=== PATIENT | female | born 1950 | race Caucasian/White ===

== ENCOUNTER → 2017-03-22 | Outpatient (CLI) | payer OTHER, MEDICARE ==
[~2017-03-22] MED LIST: ACET-1138 PO; ASPEC81 PO; CARV12.52 PO; CHOL2000 PO; CLB200 PO; HYDR25TA4 PO; LEVO150T9 PO; OXYSR10 PO; RQP/5 PO; RXC5 PO
--- NOTE | 2017-03-22 13:51 | DIAGNOSTIC IMAGING REPORT ---
MRI LUMBAR SPINE W/O CONTRAST CLINICAL HISTORY: Low back pain with bilateral leg radiculopathy. TECHNIQUE: Sagittal and axial T1, T2 and STIR images were obtained. Imaging was performed in 0.7 Joi open MRI scanner. COMPARISON STUDY: CT scan dated 08/02/2013 OBSERVATIONS: The vertebral bodies and posterior elements appear intact. There is no abnormal bony signal present to suggest a marrow replacement process. L1-2: There is a minor circumferential disc bulge. There is no significant spinal or foraminal stenosis L2-3: There is a mild circumferential disc bulge. There is no significant spinal or foraminal stenosis L3-4: There is a mild circumferential disc bulge. There is mild facet joint hypertrophy. There is minimal spinal canal narrowing. There is no significant foraminal narrowing L4-5: There is a circumferential disc bulge present. There is mild facet joint ligamentous hypertrophy. There is mild to moderate spinal stenosis. L5-S1: There is disc degeneration. No focal herniations are visualized. There is no significant spinal or foraminal stenosis. The conus medullaris and cauda equina appear normal. 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 IMPRESSION: Multilevel degenerative change. Minimal spinal stenosis the L3-4 level. Mild to moderate spinal stenosis at the L4-5 level. Electronically signed by: Torres Perez M.D. 03/22/2017 1:49 PM Dictated Date/Time: 03/22/2017 1:44 PM
== END | disposition home or self-care (01) ==
LOC: C.OPENMRI 12:32
PROVIDERS: ATTEND Internal Medicine
DX: M51.36 Other intervertebral disc degeneration, lumbar region (principal); M48.06 Spinal stenosis, lumbar region

== ENCOUNTER → 2017-05-08 | Outpatient (CLI) | payer OTHER, MEDICARE ==
--- NOTE | 2017-05-08 15:42 | MAMMOGRAPHY REPORT ---
BILATERAL DIGITAL SCREENING MAMMOGRAM WITH CAD: 05/08/2017 CLINICAL HISTORY: Routine screening. TECHNIQUE: Bilateral CC and MLO views were obtained. Current study was also evaluated with a Compute r Aided Detection (CAD) system. COMPARISON: Comparison is made to exams dated: 05/05/2016 mammogram, 01/26/2015 mammogram, 10/17/2012 ma mmogram, 10/17/2011 mammogram, 10/14/2010 mammogram, and 10/12/2009 mammogram - [facility] BREAST COMPOSITION: There are scattered areas of fibroglandular density in both breasts. FINDINGS: The parenchymal pattern is unchanged. No developing mass, architectural distortion or clus ter of suspicious microcalcifications is seen in either breast. IMPRESSION: ACR BI-RADS CATEGORY 2: BENIGN There is no mammographic evidence of malignancy. A 1 year screening mammogram is recommended. The pa tient will receive written notification of the results. Approximately 10% of breast cancers are not detected with mammography. A negative mammographic report should not delay biopsy if a clinically suggestive mass is present. Vilma Mann M.D. ay/:05/08/2017 14:25:00 Hosiery Mater: Radha Woodard RT(R)(M), [facility] letter sent: Normal 1/2 BI-RADS Code: ACR BI-RADS Category 2: Benign
== END | disposition home or self-care (01) ==
LOC: C.MAMM 13:43
PROVIDERS: ATTEND Obstetrics & Gynecology
DX: Z12.31 Encounter for screening mammogram for malignant neoplasm of breast (principal)

== ENCOUNTER → 2017-07-19 | Outpatient (CLI) | payer OTHER, MEDICARE ==
[2017-07-19 13:15] LABS: BASO % 0.6 %; BASO ABS # 0.03 K/uL (0-0.2); COMPLETE YES; EOS % 2.9 %; HEMATOCRIT 39.7 % (37-47); IG% 0.4 %; LYMPH % 30.3 %; LYMPH ABS # 1.59 K/uL (1.2-3.4); MEAN CORPUSCULAR HEMOGLOBIN 28.8 pg (25-34); MEAN CORPUSCULAR HGB CONC 32.7 g/dl (32-36); MEAN PLATELET VOLUME 9.4 fL (7.4-10.4); MONO % 12.4 %; NEUT % 53.4 %; PLATELET COUNT 262 K/uL (130-400); RED BLOOD COUNT 4.51 M/uL (4.2-5.4); WHITE BLOOD COUNT 5.24 K/uL (4.8-10.8)
[2017-07-19 13:49] LABS: ALT/SGPT 21 U/L (12-78); BLOOD UREA NITROGEN 21 mg/dl (7-18); BUN/CREATININE RATIO 29.2 (10-20); CALCIUM 9.4 mg/dl (8.5-10.1); CARBON DIOXIDE 27 mmol/L (21-32); CHLORIDE 107 mmol/L (98-107); CREATININE 0.71 mg/dl (0.60-1.20); GLUCOSE 106 mg/dl (70-99); POTASSIUM 4.2 mmol/L (3.5-5.1); SODIUM 139 mmol/L (136-145)
[2017-07-19 13:58] LABS: ALKALINE PHOSPHATASE 84 U/L (45-117); AST/SGOT 15 U/L (15-37); TOTAL IRON BINDING CAPACITY 349 mcg/dl (250-450)
[2017-07-19 14:14] LABS: ESTIMATED AVERAGE GLUCOSE 128 mg/dl; HA1C FLAG Normal (Normal)
[2017-07-19 14:19] LABS: LYME DISEASE AB IGG NEG (NEG); LYME DISEASE AB IGM NEG (NEG)
[2017-07-20 01:38] LABS: RAPID PLASMA REAGIN NONREACTIVE (NONREACT)
== END | disposition home or self-care (01) ==
LOC: C.LABBC 09:39
PROVIDERS: ATTEND Psychiatry & Neurology Neurology
DX: G25.81 Restless legs syndrome (principal); M54.9 Dorsalgia, unspecified; G60.9 Hereditary and idiopathic neuropathy, unspecified

== ENCOUNTER → 2017-10-17 | Outpatient (CLI) | payer OTHER, MEDICARE ==
--- NOTE | 2017-10-17 16:41 | DIAGNOSTIC IMAGING REPORT ---
ULTRASOUND LEFT LOWER EXTREMITY VENOUS CLINICAL HISTORY: Left leg swelling and erythema. COMPARISON STUDY: Left lower extremity venous ultrasound dated 04/30/2012. TECHNIQUE: Real-time, grayscale, and color Doppler sonography of the deep veins of the left lower extremity was performed from the inguinal crease to the calf. Compression and augmentation were utilized. FINDINGS: There is no sonographic evidence of deep venous thrombosis identified in the left lower extremity. The common femoral, superficial femoral, and popliteal veins are patent and normally compressible. The greater saphenous vein and the profunda femoris vein at the junction with the common femoral vein are clear. The visualized calf veins are patent. A complex popliteal cyst measures 6.2 x 2.0 x 3.5 cm. IMPRESSION: 1. There is no sonographic evidence of deep venous thrombosis identified in the left lower extremity. 2. Popliteal cyst. Electronically signed by: Trino Vick M.D. 10/17/2017 4:40 PM Dictated Date/Time: 10/17/2017 4:40 PM
== END | disposition home or self-care (01) ==
LOC: C.ULTR 15:52
PROVIDERS: ATTEND Nurse Practitioner
DX: M79.662 Pain in left lower leg (principal); M79.89 Other specified soft tissue disorders

== ENCOUNTER → 2018-02-02 | Outpatient (CLI) | payer OTHER, MEDICARE ==
[~2018-02-02] MED LIST changes: -ASPEC81 PO; +ASPI-320 PO
== END | disposition home or self-care (01) ==
LOC: C.PAPS 14:27
PROVIDERS: ATTEND Obstetrics & Gynecology
DX: Z12.4 Encounter for screening for malignant neoplasm of cervix (principal)

== ENCOUNTER → 2018-05-14 | Outpatient (CLI) | payer OTHER, MEDICARE ==
--- NOTE | 2018-05-15 14:44 | MAMMOGRAPHY REPORT ---
BILATERAL DIGITAL SCREENING MAMMOGRAM TOMOSYNTHESIS WITH CAD: 05/14/2018 CLINICAL HISTORY: Routine screening. Patient has no complaints. TECHNIQUE: The study was acquired using full field digital technology and interpreted from soft copy. Breast tomosynthesis in addition to standard 2D mammography was performed. Current study was also ev aluated with a Computer Aided Detection (CAD) system. COMPARISON: Comparison is made to exams dated: 05/08/2017 mammogram, 05/05/2016 mammogram, 01/26/2015 m ammogram, 10/17/2012 mammogram, 10/17/2011 mammogram, and 10/14/2010 mammogram - [facility]. BREAST COMPOSITION: There are scattered areas of fibroglandular density in both breasts. FINDINGS: The parenchymal pattern is unchanged. No developing mass, architectural distortion or cluster of susp icious microcalcifications is seen in either breast. IMPRESSION: ACR BI-RADS CATEGORY 2: BENIGN There is no mammographic evidence of malignancy. A 1 year screening mammogram is recommended.( 019) The patient will receive written notification of the results. Some breast cancers are not detected with mammography. A negative mammographic report should not aug[place] y biopsy if a clinically suggestive mass is present. Vilma Mann M.D. ay/:05/14/2018 17:16:21 Director Of Outside Sales: RT Gabriela(Shruti)(M), [facility] letter sent: Normal 1/2 BI-RADS Code: ACR BI-RADS Category 2: Benign
== END | disposition home or self-care (01) ==
LOC: C.MAMM 11:16
PROVIDERS: ATTEND Internal Medicine
DX: Z12.31 Encounter for screening mammogram for malignant neoplasm of breast (principal)

== ENCOUNTER 2023-11-23 19:46 | Observation (INO) ==
[2023-11-23] MEDS: ONDANSETRON INJ 2 MG/ML 2 ML VIAL IV STA ×2 (20:55→22:53)
[2023-11-23 21:15] LABS: Basophils # (auto) 0.04 K/uL (0.00-0.20); Basophils % (auto) 0.4 %; Eosinophils # (auto) 0.09 K/uL (0.00-0.50); Eosinophils % (auto) 0.9 %; Hematocrit (blood only) 44.5 % (37.0-47.0); Hemoglobin 14.6 g/dl (12.0-16.0); Immature Granulocytes # (auto) 0.04 K/uL (0.01-0.20); Immature Granulocytes % (auto) 0.4 %; Lymphocytes # (auto) 1.46 K/uL (1.20-3.40); Lymphocytes % (auto) 13.8 %; Mean Corpuscular Hemoglobin 28.9 pg (25.0-34.0); Mean Corpuscular Hgb Conc 32.8 g/dL (32.0-36.0); Mean Corpuscular Volume 88.1 fL (80.0-100.0); Mean Platelet Volume 9.6 fL (9.4-12.4); Monocytes # (auto) 1.04 K/uL (0.11-0.59); Monocytes % (auto) 9.8 %; Neutrophils # (auto) 7.89 K/uL (1.40-6.50); Neutrophils % (auto) 74.7 %; Platelet Count 307 K/uL (130-400); RDW Coefficient of Variation 13.2 % (11.5-14.5); RDW Standard Deviation 42.2 fL (36.4-46.3); Red Blood Count 5.05 M/uL (4.20-5.40); White Blood Count 10.56 K/ul (4.8-10.8)
[2023-11-23 21:28] LABS: Albumin Globulin Ratio 1.3 (0.9-2); Albumin Level 4.7 gm/dl (3.4-5.0); BUN Creatinine Ratio 25.6 (10-20); Bilirubin,Total 0.6 mg/dl (0.2-1.0); Calcium 10.4 mg/dl (8.6-10.3); Est GFR (African American) 81.1 ml/min; Globulin 3.5 gm/dl (2.5-4.0); Potassium 3.9 mmol/L (3.5-5.1); Total Protein 8.2 gm/dl (6.0-8.3)
--- NOTE | 2023-11-23 21:41 | XRay Report ---
KUB CLINICAL HISTORY: Generalized abdominal pain. FINDINGS: 2 AP, portable, supine abdominal radiographs are correlated with abdominal CT dated 023. There are distended and gas-filled loops of small bowel which measure up to 4.5 cm diameter. Fin dings suggest obstruction. Fecal retention is noted in the right colon. No evidence of intraperitonea l free air is seen on these supine images. There are no abnormal abdominal calcifications. The skelet al structures are osteopenic and appear intact. There is moderate lumbosacral spondylosis. IMPRESSION: Distended and gas-filled loops of small bowel suggest obstruction. Correlate clinically. Electronically signed by: Trino Vick M.D. 11/23/2023 9:38 PM
[2023-11-23 22:40] LABS: Troponin I High Sensitivity 4.5 pg/ml (0-14)
[2023-11-23] MEDS: OPTIRAY 320 500ml IV ONE (22:47)
[2023-11-23] MEDS: FAMOTIDINE 20MG IV PUSH 20 MG/5 ML SYR IV STA (22:53)
[2023-11-23] MEDS: ACETAMINOPHEN 1,000 MG/100 ML VIAL IV STA (22:53)
[2023-11-23] MEDS: SODIUM CHLORIDE 0.9% 500 ML IV ONE (23:02)
--- NOTE | 2023-11-23 23:11 | CT Scan Report ---
Exam(s): CT ABDOMEN + PELVIS With Contrast IV Amt: 88 ML OPTIRAY 320 EXAM: CT Abdomen and Pelvis With Intravenous Contrast CLINICAL HISTORY: Reason for exam: severe abd pain. TECHNIQUE: Axial computed tomography images of the abdomen and pelvis with intravenous contrast. CTDI is 28.14 mGy and DLP is 1408.89 mGy-cm. Automated exposure control was utilized for the study. A dose lowering technique was utilized adhering to the principles of ALARA. CONTRAST: Patient received 88 ML OPTIRAY 320 of IV contrast COMPARISON: No relevant prior studies available. FINDINGS: Lung bases: Unremarkable. No mass. No consolidation. Mediastinum: Moderate size esophageal hiatal hernia. ABDOMEN: Liver: Unremarkable. No mass. Gallbladder and bile ducts: Unremarkable. No calcified stones. No ductal dilation. Pancreas: Unremarkable. No mass. No ductal dilation. Spleen: Unremarkable. No splenomegaly. Adrenals: Unremarkable. No mass. Kidneys and ureters: Unremarkable. No solid mass. No hydronephrosis. Stomach and bowel: Low-grade small bowel obstruction centered on a infraumbilical anterior abdominal wall hernia. No mucosal thickening. PELVIS: Appendix: No findings to suggest acute appendicitis. Bladder: Unremarkable. No mass. Reproductive: Unremarkable as visualized. ABDOMEN and PELVIS: Intraperitoneal space: Unremarkable. No free air. No significant fluid collection. Bones/joints: No acute fracture. No dislocation. Soft tissues: See above. Vasculature: Unremarkable. No abdominal aortic aneurysm. Lymph nodes: Unremarkable. No enlarged lymph nodes. IMPRESSION: Low-grade small bowel obstruction centered on infraumbilical anterior abdominal wall hernia Electronically signed by: Fabiano Haas MD 11/23/23 23:10 PM
--- NOTE | 2023-11-23 23:19 | Emergency Department Note ---
History of Present Illness General Chief complaint: Abdominal Pain Stated complaint: NAUSEA, ABDOMINAL PAIN, HEADACHE, COLD SWEATS Time Seen by Provider: 11/23/23 21:48 History of Present Illness Maximum Pain Intensity: 8 This 73-year-old female presents ER complaining of abdominal pain today shortly after eating a frosty from [employer]. No prior abdominal surgeries. Patient states her is currently home and was just getting treated for C. difficile. Patient denies diarrhea, fever, chills, chest pain, dyspnea, flulike illness. Home Medications Medication Instructions Recorded Confirmed Type carvedilol 6.25 mg tablet 12.5 mg PO BID 04/17/20 10/27/23 History oxycodone-acetaminophen 5 mg-325 1 tab PO Q8H PRN Pain 02/01/21 10/27/23 History mg tablet (Percocet) anastrozole 1 mg tablet 1 mg PO QAM 10/25/22 10/27/23 History cyanocobalamin (vitamin B-12) 1,000 mcg PO QAM 10/25/22 10/27/23 History 1,000 mcg tablet (Vitamin B-12) fluticasone propionate 50 2 spray intranasal HS PRN 10/25/22 10/27/23 History mcg/actuation nasal Congestion spray,suspension levothyroxine 175 mcg tablet 175 mcg PO QAM 10/25/22 10/27/23 History omeprazole 20 mg capsule,delayed See Rx Instructions .Route 06/27/23 10/27/23 Rx release .COMPLEX #90 caps pramipexole 0.25 mg tablet 0.25 mg PO .COMPLEX 90 days #270 07/17/23 10/27/23 Rx tabs gabapentin 100 mg capsule 100 mg PO DAILY 08/04/23 10/27/23 History torsemide 5 mg tablet 5 mg PO BID 08/04/23 10/27/23 History Allergies Allergy/AdvReac Type Severity Reaction Status Date / Time lisinopril Allergy Severe THROAT Verified 10/27/23 09:04 SWELLING/SOB sulfamethoxazole Allergy Mild Rash Verified 10/27/23 09:04 [From Bactrim] trimethoprim [From Bactrim] Allergy Mild Rash Verified 10/27/23 09:04 latex Allergy Unknown Rash Verified 10/27/23 09:04 Penicillins Allergy Unknown SHORTNESS Verified 10/27/23 09:04 OF BREATH empagliflozin AdvReac Intermediate Abdominal Verified 10/27/23 09:04 [From Jardiance] Pain Past Med/Surg History Medical History History of anesthesia problem "hard time coming out of it, don't remember ride home from the hospital" Sleep apnea CPAP; "hasn't used in 2 weeks due to tingling in her cheek from her mask/magnet, waiting for special pads to arrive" History of COVID-19 11/2021, home test, not hosp; "bad" congestion, chills, fatigue>"still feels tired all the time and not as strong physically" History of Mohs micrographic surgery for skin cancer BCC forehead CHF (congestive heart failure) f/u dr. hamilton, [facility] Basal cell carcinoma of face Forehead Gastroesophageal reflux disease Hiatal hernia Breast cancer, right Biopsy on 07/06/21; XRT and sx Numbness and tingling in both hands "just a little on the left side remains" DDD (degenerative disc disease) Idiopathic polyneuropathy Lumbar radiculopathy Lumbar spinal stenosis Endometrial hyperplasia hx ASCUS favor benign 06/12/07; 05/2006 Restless leg syndrome Migraine hx Hypothyroidism Hypertension Surgical History Hx of colonoscopy History of carpal tunnel surgery of left wrist History of surgery "Turbinate resection" Status post right breast lumpectomy 08/17/21 Dr. Leong S/P dilation and curettage H/O foot surgery Bilateral H/O shoulder surgery 2014 - Bilateral arthroscopic S/P tonsillectomy and adenoidectomy History of arthroplasty of left knee "09/21/16 Dr. Villavicencio" S/P left knee arthroscopy "2006" History of arthroplasty of right knee "2013 Dr. Villavicencio" Family History Father , 90yo Laryngeal cancer Restless leg syndrome Sister Restless leg syndrome Brother Restless leg syndrome Hypertension Grandmother (Maternal) Cardiac disorder Grandmother (Paternal) Cardiac disorder Aunt Breast cancer maternal Mother , 90yo Alzheimer disease Unknown Colorectal cancer maternal cousin 50s, paternal cousin 50s. Brother Depression Restless leg syndrome Brother No problems noted. Brother Aplastic anemia Daughter No problems noted. 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 Feels Safe at Home: Yes Diet: regular caffeine: Yes (2 "Yetis" of coffee daily) during the past year weight has: remained stable Assistive Devices: Glasses Review of Systems A total of 10 systems reviewed and were otherwise negative Physical Exam Vital Signs Vital Signs - 24 hr 11/23/23 19:47 11/23/23 19:47 11/23/23 21:42 Temperature 36.9 C Temperature Source Oral Pulse Rate 82 Pulse Rate [Apical] 66 Pulse Rate from SpO2 Sensor Pulse Rhythm Respiratory Rate 16 19 Respiratory Effort / Characteristics Non-Labored Spontaneous Non-Labored Non-Labored Spontaneous Respiratory Depth Normal Normal Respiratory Pattern Regular Blood Pressure 195/121 H Blood Pressure [Left Arm] 163/119 H Blood Pressure Mean 145 Blood Pressure Mean [Left Arm] 133 Blood Pressure Position [Left Arm] Lying Pulse Oximetry 96 95 Oxygen Delivery Method Room Air Room Air Sepsis New/Unexplained Change in Mental Status No Sepsis Action Taken by Nursing No Action Required 11/23/23 21:43 11/23/23 21:44 11/23/23 23:00 Temperature Temperature Source Pulse Rate 74 76 Pulse Rate [Apical] Pulse Rate from SpO2 Sensor 78 Pulse Rhythm Regular Respiratory Rate 17 18 Respiratory Effort / Characteristics Respiratory Depth Respiratory Pattern Blood Pressure 221/127 H Blood Pressure [Left Arm] Blood Pressure Mean 158 Blood Pressure Mean [Left Arm] Blood Pressure Position [Left Arm] Pulse Oximetry 96 97 Oxygen Delivery Method Room Air Sepsis New/Unexplained Change in Mental Status Sepsis Action Taken by Nursing 11/23/23 23:30 Temperature Temperature Source Pulse Rate Pulse Rate [Apical] Pulse Rate from SpO2 Sensor 76 Pulse Rhythm Respiratory Rate 18 Respiratory Effort / Characteristics Respiratory Depth Respiratory Pattern Blood Pressure 144/113 H Blood Pressure [Left Arm] Blood Pressure Mean 123 Blood Pressure Mean [Left Arm] Blood Pressure Position [Left Arm] Pulse Oximetry 96 Oxygen Delivery Method Sepsis New/Unexplained Change in Mental Status Sepsis Action Taken by Nursing VITALS: Vitals are noted on the nurse's note and reviewed by myself. Vital signs stable. GENERAL: Pleasant female who appears in pain, in no acute distress, nondiaphoretic, well-developed well-nourished. SKIN: Capillary reflex less than 2 seconds. HEENT: Normocephalic. PERRLA. EOMI. Nares patent. Mucous membranes moist. Neck is supple without nuchal rigidity. HEART: Regular rate and rhythm LUNGS: Clear to auscultation bilaterally without wheezes, rales or rhonchi. No retractions or accessory muscle use. ABDOMEN: Positive bowel sounds x 4. Normal tympanic percussion. Soft, tender mid lower abdomen, without masses or organomegaly. Becerra sign negative. No guarding or rebound tenderness. no CVA tenderness MUSCULOSKELETAL: No gross musculoskeletal defects. NEURO: Patient was alert and oriented to person place and time. No focal neurological deficits. Course Administered Medications Discontinued Medications Sodium Chloride (Nss) 500 mls @ 999 mls/hr IV .Q31M ONE Stop: 11/23/23 22:37 Last Infusion: 11/23/23 23:35 Dose: Infused Documented By: [facility] Admin: 11/23/23 23:02 Dose: 999 mls/hr Documented By: ISELA Acetaminophen (Ofirmev) 1,000 mg in 100 mls @ 400 mls/hr IV NOW STA Stop: 11/23/23 22:21 Last Infusion: 11/23/23 23:18 Dose: Infused Documented By: [facility] Admin: 11/23/23 22:53 Dose: 400 mls/hr Documented By: ISELA Famotidine (Pepcid 20mg Iv Push) 20 mg in 5 mls @ 2.5 mls/min IV NOW STA Stop: 11/23/23 22:08 Last Admin: 11/23/23 22:53 Dose: 2.5 mls/min Documented By: ISELA Ioversol (Optiray 320 500ml) 100 ml IV ONCE ONE Stop: 11/23/23 22:48 Last Admin: 11/23/23 22:47 Dose: 88 ml Documented By: ALONDRA Morphine Sulfate (Morphine Sulfate 4 Mg/Ml 1 Ml Carp\\Vial) 4 mg IV NOW STA Stop: 11/23/23 23:14 Last Admin: 11/23/23 23:34 Dose: 4 mg Documented By: PHYLLIS Ondansetron HCl (Ondansetron Inj 2 Mg/Ml 2 Ml Vial) 4 mg IV NOW STA Stop: 11/23/23 20:17 Last Admin: 11/23/23 20:55 Dose: 4 mg Documented By: TRENT Ondansetron HCl (Ondansetron Inj 2 Mg/Ml 2 Ml Vial) 4 mg IV NOW STA Stop: 11/23/23 22:08 Last Admin: 11/23/23 22:53 Dose: 4 mg Documented By: ISELA Medical Decision Making Medical Records Attestation: I reviewed the patient's medical records. Home Medications Current Medication List: was personally reviewed by me Laboratory Data Attestation: I reviewed the patient's lab results. 11/23/23 20:51 11/23/23 20:51 Lab Results 11/23/23 11/23/23 Range/Units 20:51 23:11 WBC 10.56 (4.8-10.8) K/ul RBC 5.05 (4.20-5.40) M/uL Hgb 14.6 (12.0-16.0) g/dl Hct 44.5 (37.0-47.0) % MCV 88.1 (80.0-100.0) fL MCH 28.9 (25.0-34.0) pg MCHC 32.8 (32.0-36.0) g/dL RDW Std Deviation 42.2 (36.4-46.3) fL RDW Coeff of Steven 13.2 (11.5-14.5) % Plt Count 307 (130-400) K/uL MPV 9.6 (9.4-12.4) fL Immature Gran % (Auto) 0.4 % Neut % (Auto) 74.7 % Lymph % (Auto) 13.8 % [place] % (Auto) 9.8 % Eos % (Auto) 0.9 % Baso % (Auto) 0.4 % Neut # (Auto) 7.89 H (1.40-6.50) K/uL Lymph # (Auto) 1.46 (1.20-3.40) K/uL [place] # (Auto) 1.04 H (0.11-0.59) K/uL Eos # (Auto) 0.09 (0.00-0.50) K/uL Baso # (Auto) 0.04 (0.00-0.20) K/uL Immature Gran # (Auto) 0.04 (0.01-0.20) K/uL Sodium 137 (136-145) mmol/L Potassium 3.9 (3.5-5.1) mmol/L Chloride 101 (98-107) mmol/L Carbon Dioxide 25 (21-32) mmol/L Anion Gap 11 (3-11) BUN 21 (6-23) mg/dl Creatinine 0.82 (0.6-1.2) mg/dl Est Cr Clr Drug Dosing 72.0 ml/min Est GFR ( Amer) 81.1 ml/min Est GFR (Non-Af Amer) 70.0 ml/min BUN/Creatinine Ratio 25.6 H (10-20) Glucose 153 H (70-99(Fasting)) mg/dl Lactate 1.3 (0.4-2.0) mmol/L Calcium 10.4 H (8.6-10.3) mg/dl Magnesium 2.0 (1.7-2.4) mg/dl Total Bilirubin 0.6 (0.2-1.0) mg/dl AST 17 (13-39) U/L ALT 17 (7-52) U/L Alkaline Phosphatase 82 (34-104) U/L Troponin I High Sens 4.5 (0-14) pg/ml Total Protein 8.2 (6.0-8.3) gm/dl Albumin 4.7 (3.4-5.0) gm/dl Globulin 3.5 (2.5-4.0) gm/dl Albumin/Globulin Ratio 1.3 (0.9-2) Lipase 6 L (11-82) U/L Imaging Data Attestation: I personally reviewed and interpreted this imaging study as follows: Radiologist's Impression: KUB X-Ray 11/23/23 20:52 KUB CLINICAL HISTORY: Generalized abdominal pain. FINDINGS: 2 AP, portable, supine abdominal radiographs are correlated with abdominal CT dated 08/23/2023. There are distended and gas-filled loops of small bowel which measure up to 4.5 cm diameter. Findings suggest obstruction. Fecal retention is noted in the right colon. No evidence of intraperitoneal free air is seen on these supine images. There are no abnormal abdominal calcifications. The skeletal structures are osteopenic and appear intact. There is moderate lumbosacral spondylosis. IMPRESSION: Distended and gas-filled loops of small bowel suggest obstruction. Correlate clinically. Electronically signed by: Trino Vick M.D. 11/23/2023 9:38 PM Abdomen/Pelvis CT 11/23/23 22:07 Exam(s): CT ABDOMEN + PELVIS With Contrast IV Amt: 88 ML OPTIRAY 320 EXAM: CT Abdomen and Pelvis With Intravenous Contrast CLINICAL HISTORY: Reason for exam: severe abd pain. TECHNIQUE: Axial computed tomography images of the abdomen and pelvis with intravenous contrast. CTDI is 28.14 mGy and DLP is 1408.89 mGy-cm. Automated exposure control was utilized for the study. A dose lowering technique was utilized adhering to the principles of ALARA. CONTRAST: Patient received 88 ML OPTIRAY 320 of IV contrast COMPARISON: No relevant prior studies available. FINDINGS: Lung bases: Unremarkable. No mass. No consolidation. Mediastinum: Moderate size esophageal hiatal hernia. ABDOMEN: Liver: Unremarkable. No mass. Gallbladder and bile ducts: Unremarkable. No calcified stones. No ductal dilation. Pancreas: Unremarkable. No mass. No ductal dilation. Spleen: Unremarkable. No splenomegaly. Adrenals: Unremarkable. No mass. Kidneys and ureters: Unremarkable. No solid mass. No hydronephrosis. Stomach and bowel: Low-grade small bowel obstruction centered on a infraumbilical anterior abdominal wall hernia. No mucosal thickening. PELVIS: Appendix: No findings to suggest acute appendicitis. Bladder: Unremarkable. No mass. Reproductive: Unremarkable as visualized. ABDOMEN and PELVIS: Intraperitoneal space: Unremarkable. No free air. No significant fluid collection. Bones/joints: No acute fracture. No dislocation. Soft tissues: See above. Vasculature: Unremarkable. No abdominal aortic aneurysm. Lymph nodes: Unremarkable. No enlarged lymph nodes. IMPRESSION: Low-grade small bowel obstruction centered on infraumbilical anterior abdominal wall hernia Electronically signed by: Fabiano Haas MD 02/15/24 23:10 PM [facility] Narrative Prior records/ancillary studies reviewed. Triage Nursing notes reviewed. Additional history obtained from family. The patient's history was concerning for abdominal pain. Differential diagnosis: Etiologies such as appendicitis, diverticulitis, PUD, biliary pathology, UTI, pancreatitis, obstruction, mesenteric ischemia, aortic pathology, infections, inflammatory bowel disease, renal colic, as well as others were entertained. Physical examination findings: As above. ER treatment provided: An order was placed for continuous cardiac monitoring. The monitor shows a rate of 60-100 with a sinus rhythm per my Independent interpretation. Zofran, Pepcid, Tylenol, morphine, IV fluids On reassessment the patient felt better. Diagnostics interpreted by me: ECG: Ordered for upper abdominal pain EKG: Normal sinus, normal intervals, no acute ST-T wave changes. Impression normal sinus rhythm independently interpreted by myself I think arrhythmia is unlikely. EKG shows normal sinus rhythm with no interval abnormalities such as QT prolongation or WPW. There are no findings to suggest Brugada syndrome. Cardiac monitoring in the emergency department reveals no tachycardic or bradycardic dysrhythmia. Hypertrophic cardiomyopathy was considered but there are no clear historical elements pointing toward this. EKG is not suggestive. The QRS voltage is not extremely large and there are no suggestive Q waves. The labs Independently Interpreted by myself revealed no worrisome leukocytosis, mild hyperglycemia without DKA. Negative lactic Imaging studies: CT as above Consultation: A consultation was placed with the surgical midlevel tae. The case was discussed and diagnostics were reviewed. The patient was evaluated in the ER for further treatment. Consultation was placed with medicine and the case was discussed. The patient will be admitted to the medical service for further evaluation and treatment. Exam and history seem consistent with small bowel obstruction. Medicine and surgery were consulted and the case discussed. Patient be admitted to the medical service. Patient is agreeable. She was not vomiting. No NG tube was placed then. Lactic was negative. Mild hyperglycemia without DKA. By the evaluation outlined above emergent etiologies such as appendicitis, diverticulitis, PUD, biliary pathology, UTI, pancreatitis, mesenteric ischemia, aortic pathology, infections, inflammatory bowel disease, renal colic, as well as others were deemed relatively unlikely. The pt informed about the findings as listed above. All questions were answered and pleased with the treatment. The chart was completed utilizing [employer] voice recognition software. Grammatical errors, random word insertions, pronoun errors, and incomplete sentences are an occassional consequence of this system due to software limitations, ambient noise, and hardware issues. Any formal questions or concerns about the content, text, or information contained within the body of this dictation should be directly addressed to the physician product development assistant for clarification. Impression & Plan Small bowel obstruction Discharge Plan Visit Data Chief Complaint: Abdominal Pain Stated Complaint: NAUSEA, ABDOMINAL PAIN, HEADACHE, COLD SWEATS ED Provider: Yung Woodard ED Midlevel Provider: Nicky Davenport Discharge Problem: Small bowel obstruction Patient Disposition: Admitted As Inpatient Condition: Good Forms Stand Alone Forms: [facility] [employer] Prescriptions Prescriptions: No Action torsemide 5 mg tablet 5 mg PO BID gabapentin 100 mg capsule 100 mg PO DAILY oxycodone-acetaminophen [Percocet] 5-325 mg tablet 1 tab PO Q8H PRN (Reason: Pain) pramipexole 0.25 mg tablet 0.25 mg PO .COMPLEX 90 Days Qty: 270 3RF Rx Instructions: 0.25 mg orally; take two in the afternoon and take one at HS omeprazole 20 mg capsule,delayed release(DR/EC) See Rx Instructions .ROUTE .COMPLEX Qty: 90 3RF Dose Instruction: TAKE 1 CAPSULE BY MOUTH ONCE DAILY Rx Instructions: TAKE 1 CAPSULE BY MOUTH ONCE DAILY carvedilol 6.25 mg tablet 12.5 mg PO BID levothyroxine 175 mcg Tablet 175 mcg PO QAM anastrozole 1 mg Tablet 1 mg PO QAM cyanocobalamin (vitamin B-12) [Vitamin B-12] 1,000 mcg Tablet 1,000 mcg PO QAM fluticasone propionate 50 mcg/actuation [place],Suspension 2 spray INTRANASAL HS PRN (Reason: Congestion) Rx Instructions: administer into each nostril Referrals Referrals: Jodi Garcia MD [Primary Care Provider] -
[2023-11-23] MEDS: MoRPHine SULFATE 4 MG/ML 1 ML CARP\\VIAL IV STA (23:34)
--- NOTE | 2023-11-23 23:49 | Surgery Consultation ---
Date of Consultation November 23, 2023 Assessment & Plan (1) Small bowel obstruction: (2) Ventral hernia: I discussed with the treating clinician the emergency department and the patient is being admitted on the hospital service. From surgical perspective we recommend the following: After interviewing the patient and with her permission I attempted to Reduce the hernia in question noted on CT scan. After lying the patient flat and with gentle palpation I palpated the area in question and was able to reduce the hernia. Upon conclusion of reducing the hernia the patient noted that there was marked improvement of her previously noted abdominal pain As the patient did have a low-grade small bowel obstruction from this hernia seems that the patient would benefit from surgical correction. I have discussed the case with my attending physician, Dr. Isabel. He is requested that the patient be admitted to the hospital and we will tentatively plan on performing a repair of this hernia on 11/24/2023. At the present time the patient is afebrile, normotensive, and does not exhibit tachycardia. She does not have leukocytosis or elevated lactic acid level and she is not in renal failure. As I believe I have the hernia reduced do not feel an urgent or emergent surgical procedure is required at this time. Would recommend hydrating her gently with IV fluids Provide analgesics Provide antiemetics Implement n.p.o. status SCDs alone to be used for DVT prevention, no chemical means due to planned surgery Additional recommendations be forthcoming based on her clinical course as it unfolds as above. feeling better now that hernia reduced. discussed risks ( bleeding/infection/blood clots/injury to another organ/dvt/pe/mi/cva etc....) questions asnwered. will proceed today with laparoscopic repair of ventral hernia with mesh. pt agrees with plan. History of Present Illness Reason for Consultation: Small bowel obstruction secondary to ventral hernia History of Present Illness This is a 73-year-old female who presented to the emergency department secondary to abdominal pain. Patient notes that she had some generalized abdominal pain that began on 11/22/2023. The pain was not very severe but on the morning of 11/23/2023 at approximate 10:00 AM the patient noted extreme abdominal pain centered just near her umbilicus. Patient says that the pain is worse with palpation and improved after she had an episode of emesis. She does note that her most recent episode of emesis was at approximate 9:00 PM on 11/23/2023. Since the patient's severe pain began and she has been passing a small amount of flatus but she has not had any bowel movements since the severe pain began. Patient denies taking any anticoagulants. She has never had abdominal surgery before. Patient also added that her was recently hospitalized for septic shock and developed C. difficile. She was concerned that she developed C. difficile but she has not had any diarrhea. Since arrival to the hospital the patient has had labs and imaging which independent reviewed. Patient had a KUB that showed distended and gas filled loops of bowel concerning for an obstruction. This was followed up with a CT scan of the abdomen pelvis that showed patient had a low-grade small bowel obstruction which was felt to be caused from an infraumbilical abdominal wall hernia. There is no free intraperitoneal air or free intraperitoneal fluid. There is no mucosal thickening of the bowel or small bowel noted. Labs include a CBC were white blood cell count was normal. Her hemoglobin, hematocrit, and platelet count were normal. Chemistry profile showed sodium and potassium along with the BUN and creatinine were normal. Lactic acid level was not elevated. Patient's LFTs were nonelevated and her lipase was nonelevated. At the conclusion of my interview with the patient she was resting comfortably in bed and she was in no distress. Allergies Allergy/AdvReac Type Severity Reaction Status Date / Time lisinopril Allergy Severe THROAT Verified 10/27/23 09:04 SWELLING/SOB sulfamethoxazole Allergy Mild Rash Verified 10/27/23 09:04 [From Bactrim] trimethoprim [From Bactrim] Allergy Mild Rash Verified 10/27/23 09:04 latex Allergy Unknown Rash Verified 10/27/23 09:04 Penicillins Allergy Unknown SHORTNESS Verified 10/27/23 09:04 OF BREATH empagliflozin AdvReac Intermediate Abdominal Verified 10/27/23 09:04 [From Jardiance] Pain Home Medications Medication Instructions Recorded Confirmed Type anastrozole 1 mg tablet 1 mg PO DAILY 11/24/23 11/24/23 History carvedilol 12.5 mg tablet 12.5 mg PO BID 11/24/23 11/24/23 History gabapentin 100 mg capsule 100 mg PO HS 11/24/23 11/24/23 History levothyroxine 175 mcg tablet 175 mcg PO UD 11/24/23 11/24/23 History omeprazole 20 mg capsule,delayed 20 mg PO DAILY 11/24/23 11/24/23 History release oxycodone-acetaminophen 5 mg-325 0.25 tab PO BID 11/24/23 11/24/23 History mg tablet pramipexole 0.5 mg tablet 0.5 mg PO UD 11/24/23 11/24/23 History torsemide 10 mg tablet 10 mg PO DAILY 11/24/23 11/24/23 History Patient History Medical History History of anesthesia problem "hard time coming out of it, don't remember ride home from the hospital" Sleep apnea CPAP; "hasn't used in 2 weeks due to tingling in her cheek from her mask/magnet, waiting for special pads to arrive" History of COVID-19 11/2021, home test, not hosp; "bad" congestion, chills, fatigue>"still feels tired all the time and not as strong physically" History of Mohs micrographic surgery for skin cancer BCC forehead CHF (congestive heart failure) f/u dr. hamilton, s Basal cell carcinoma of face Forehead Gastroesophageal reflux disease Hiatal hernia Breast cancer, right Biopsy on 07/06/21; XRT and sx Numbness and tingling in both hands "just a little on the left side remains" DDD (degenerative disc disease) Idiopathic polyneuropathy Lumbar radiculopathy Lumbar spinal stenosis Endometrial hyperplasia hx ASCUS favor benign 06/12/07; 05/2006 Restless leg syndrome Migraine hx Hypothyroidism Hypertension Surgical History Hx of colonoscopy History of carpal tunnel surgery of left wrist History of surgery "Turbinate resection" Status post right breast lumpectomy 08/17/21 Dr. Leong S/P dilation and curettage H/O foot surgery Bilateral H/O shoulder surgery 2014 - Bilateral arthroscopic S/P tonsillectomy and adenoidectomy History of arthroplasty of left knee "09/21/16 Dr. Villavicencio" S/P left knee arthroscopy "2006" History of arthroplasty of right knee "2013 Dr. Villavicencio" Family History Father , 90yo Laryngeal cancer Restless leg syndrome Sister Restless leg syndrome Brother Restless leg syndrome Hypertension Grandmother (Maternal) Cardiac disorder Grandmother (Paternal) Cardiac disorder Aunt Breast cancer maternal Mother , 90yo Alzheimer disease Unknown Colorectal cancer maternal cousin 50s, paternal cousin 50s. Brother Depression Restless leg syndrome Brother No problems noted. Brother Aplastic anemia Daughter No problems noted. Daughter Fainting Frequently but unknown cause Other No significant family history Denies family history of Ovarian cancer Social History Smoking Status: Never smoker Second Hand Exposure: Yes (father was a chain smoker); Do You Dip or Chew Tobacco: No; Hx Alcohol Use: Yes Alcohol type: beer, wine and hard liquor Hx Substance Use: No Preferred Language: Spanish Communication Ability: Effective Visual Impairment: No Limitations Hearing Ability: Normal Burrito Maker Required: No Beliefs That Will Affect Care: Islam Islam Beliefs: Provestant marital status: Current Living Situation: Spouse current occupational 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 Other Information That Helps Us Care for You: No Feels Safe at Home: Yes Safety Concerns: Feels Safe At This Time Diet: regular caffeine: Yes (2 "Yetis" of coffee daily) during the past year weight has: remained stable Assistive Devices: None Review of Systems 2 Constitutional: no fever and no chills Eyes: + corrective lenses Ear, Nose, Mouth, Throat: no ear pain Respiratory: no cough Cardiovascular: no chest pain Gastrointestinal: as per Subjective / HPI Genitourinary: no dysuria Musculoskeletal: no back pain Integumentary: no rash Neurologic: no localized weakness Physical Exam Constitutional: WD/WN, vitals as above Eyes: no conjunctival abnormality Wears glasses ENMT: Ears: no hearing impairment and no external ear abnormality Mouth: no oropharynx abnormality Neck: trachea midline Respiratory: normal respiratory effort; no respiratory distress and no labored breathing Cardiovascular: Rate/Rhythm: regular rate and regular rhythm Gastrointestinal (Abdomen): Abdomen is soft and nondistended. It is nonrigid. Bowel sounds are hypoactive. The patient did have a masslike structure near her umbilicus. There is no overlying skin changes. The masslike structure was not hard or indurated. There are no open areas or areas of drainage. The patient had no rebound tenderness or guarding. Musculoskeletal: No calf tenderness Skin: no rashes Neurologic: moves all extremities Psychiatric: A+Ox3, euthymic affect Results & Data Vital Signs (Past 12 Hours) Vital Signs Temp Pulse Pulse Resp BP BP Pulse Ox 11/23/23 23:30 18 144/113 H 96 11/23/23 23:00 18 221/127 H 97 11/23/23 21:44 76 11/23/23 21:43 74 17 96 11/23/23 21:42 66 19 163/119 H 95 11/23/23 19:47 36.9 C 82 16 195/121 H 96 O2 Del Method 11/23/23 23:30 11/23/23 23:00 11/23/23 21:44 11/23/23 21:43 Room Air 11/23/23 21:42 Room Air 11/23/23 19:47 Room Air PG Care Time/CCT Total # of Minutes Spent Total Time Spent with Patient: Total time spent is greater than 50% in coordination of care (as documented) at patient's floor/unit and/or counseling patient: Coding Level of Care Code 92276 INT INP/OBS CARE 3/75MIN Diagnoses Small bowel obstruction K56.609 Ventral hernia K43.9
[2023-11-24 00:09] LABS: Prothrombin Time 10.9 Seconds (9.0-12.0)
--- NOTE | 2023-11-24 00:10 | Emergency Department Note ---
ED Visit Note I was consulted by the Advanced Practice Provider Alina Davenport PA-C. I personally made/approved the management plan and take responsibility for the patient management. I performed a substantive portion of the visit. This includes the aspects of: -History/Physical/Personally seeing the patient -MDM The patient had presented due to concern for abdominal pain was noted to have a bowel obstruction. The patient was admitted to the medicine service. The patient did have a hernia which was reduced and surgery was planning to take the patient to the OR for operative treatment of the hernia in the morning. .
--- NOTE | 2023-11-24 01:38 | History & Physical Report ---
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 Patient having abdomen pains yesterday and today. Severe in nature. In the ER waiting she had episode of vomiting. Was perspiring when the pain was severe. CT scan showed low-grade small bowel obstruction centered on infraumbilical anterior abdominal wall hernia. Surgery reduced the hernia. After hernia was reduced the pain almost resolved. Cu rrently no nausea. Had normal bowel movement in the morning. Afebrile. Denies chest pain or shortness of breath. Currently no headache. Vision is okay. No runny nose or sore throat. No cough. Resting comfortably. Hemodynamically stable. Low-grade small bowel obstruction Infraumbilical anterior abdominal wall hernia Hernia was reduced by surgery Abdominal pain improved after hernia was reduced Plan for procedure in a.m. by surgery Patient should be at acceptable risk to proceed with surgery N.p.o., IV fluids, IV morphine as needed, IV antiemetics as needed Close monitor Type 2 diabetes Not on meds Sliding scale Follow HbA1c levels History of sleep apnea Not using CPAP or oxygen States she does okay Seems using dental device Follows with sleep Chronic diastolic CHF Holding torsemide Getting gentle fluids Monitor for volume overload Hypertension On Coreg IV hydralazine as needed We will monitor History of paroxysmal supplemental tachycardia On Coreg History of chronic dyspnea and fatigue per records S/p exercise stress echo 06/2020 negative for inducible ischemia S/p nuclear stress test 07/2021 negative for ischemia Restless leg syndrome Pramipexole History of 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 Currently on anastrozole . 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 Patient having abdomen pains yesterday and today. Severe in nature. In the ER waiting she had episode of vomiting. Was perspiring when the pain was severe. CT scan showed low-grade small bowel obstruction centered on infraumbilical anterior abdominal wall hernia. Surgery reduced the hernia. After hernia was reduced the pain almost resolved. Currently no nausea. Had normal bowel movement in the morning. Afebrile. Denies chest pain or shortness of breath. Currently no headache. Vision is okay. No runny nose or sore throat. No cough. Resting comfortably. Hemodynamically stable. Past medical history. As mentioned above Past surgical history. Bilateral knee arthroplasty. Bilateral shoulder arthroscopy. Colonoscopy. Colonoscopy with biopsy. Left knee arthroscopy. Nasal surgery. Social history. No smoking. Alcohol 3 times a week. No drug use. Family history. Father had arthritis. Mother had endocrine disorder. Aunt had breast cancer. Sister has osteoporosis. Allergies Allergy/AdvReac Type Severity Reaction Status Date / Time lisinopril Allergy Severe THROAT Verified 10/27/23 09:04 SWELLING/SOB sulfamethoxazole Allergy Mild Rash Verified 10/27/23 09:04 [From Bactrim] trimethoprim [From Bactrim] Allergy Mild Rash Verified 10/27/23 09:04 latex Allergy Unknown Rash Verified 10/27/23 09:04 Penicillins Allergy Unknown SHORTNESS Verified 10/27/23 09:04 OF BREATH empagliflozin AdvReac Intermediate Abdominal Verified 10/27/23 09:04 [From Jardiance] Pain Home Medications Medication Instructions Recorded Confirmed Type anastrozole 1 mg tablet 1 mg PO DAILY 11/24/23 11/24/23 History carvedilol 12.5 mg tablet 12.5 mg PO BID 11/24/23 11/24/23 History gabapentin 100 mg capsule 100 mg PO HS 11/24/23 11/24/23 History levothyroxine 175 mcg tablet 175 mcg PO UD 11/24/23 11/24/23 History omeprazole 20 mg capsule,delayed 20 mg PO DAILY 11/24/23 11/24/23 History release oxycodone-acetaminophen 5 mg-325 0.25 tab PO BID 11/24/23 11/24/23 History mg tablet pramipexole 0.5 mg tablet 0.5 mg PO UD 11/24/23 11/24/23 History torsemide 10 mg tablet 10 mg PO DAILY 11/24/23 11/24/23 History Past Med/Surg History Medical History History of anesthesia problem "hard time coming out of it, don't remember ride home from the hospital" Sleep apnea CPAP; "hasn't used in 2 weeks due to tingling in her cheek from her mask/magnet, waiting for special pads to arrive" History of COVID-19 11/2021, home test, not hosp; "bad" congestion, chills, fatigue>"still feels tired all the time and not as strong physically" History of Mohs micrographic surgery for skin cancer BCC forehead CHF (congestive heart failure) f/u dr. hamilton, s Basal cell carcinoma of face Forehead Gastroesophageal reflux disease Hiatal hernia Breast cancer, right Biopsy on 07/06/21; XRT and sx Numbness and tingling in both hands "just a little on the left side remains" DDD (degenerative disc disease) Idiopathic polyneuropathy Lumbar radiculopathy Lumbar spinal stenosis Endometrial hyperplasia hx ASCUS favor benign 06/12/07; 05/2006 Restless leg syndrome Migraine hx Hypothyroidism Hypertension Surgical History Hx of colonoscopy History of carpal tunnel surgery of left wrist History of surgery "Turbinate resection" Status post right breast lumpectomy 08/17/21 Dr. Leong S/P dilation and curettage H/O foot surgery Bilateral H/O shoulder surgery 2014 - Bilateral arthroscopic S/P tonsillectomy and adenoidectomy History of arthroplasty of left knee "09/21/16 Dr. Villavicencio" S/P left knee arthroscopy "2006" History of arthroplasty of right knee "2013 Dr. Villavicencio" Family History Father , 90yo Laryngeal cancer Restless leg syndrome Sister Restless leg syndrome Brother Restless leg syndrome Hypertension Grandmother (Maternal) Cardiac disorder Grandmother (Paternal) Cardiac disorder Aunt Breast cancer maternal Mother , 90yo Alzheimer disease Unknown Colorectal cancer maternal cousin 50s, paternal cousin 50s. Brother Depression Restless leg syndrome Brother No problems noted. Brother Aplastic anemia Daughter No problems noted. Daughter Fainting Frequently but unknown cause Other No significant family history Denies family history of Ovarian cancer Social History Smoking Status: Never smoker Second Hand Exposure: Yes (father was a chain smoker); Do You Dip or Chew Tobacco: No; Hx Alcohol Use: Yes Alcohol type: beer, wine and hard liquor Hx Substance Use: No Preferred Language: [place]er Communication Ability: Effective Visual Impairment: No Limitations Hearing Ability: Normal Freight Rate Analyst Required: No Beliefs That Will Affect Care: Church Church Beliefs: Provestant marital status: Current Living Situation: Spouse current occupational 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 ENT- oropharynx clear Neck- supple, no JVD. Lungs- clear to auscultation no wheezing or crackles. Heart- regular rhythm; no murmur, no gallop. Abdomen- sluggish bowel sounds, soft, nontender, no distension. Extremities- no pretibial edema, no erythema seen, Neuro- alert, oriented ; PERRL,; no facial palsy; no dysarthria; moves extremities. Skin- warm & dry Results & Data Results & Data Vital Signs (Past 12 Hours) Vital Signs Temp Pulse Pulse Resp BP BP Pulse Ox 11/23/23 23:30 18 144/113 H 96 11/23/23 23:00 18 221/127 H 97 11/23/23 21:44 76 11/23/23 21:43 74 17 96 11/23/23 21:42 66 19 163/119 H 95 11/23/23 19:47 36.9 C 82 16 195/121 H 96 O2 Del Method 11/23/23 23:30 11/23/23 23:00 11/23/23 21:44 11/23/23 21:43 Room Air 11/23/23 21:42 Room Air 11/23/23 19:47 Room Air Diagnostic Findings Laboratory Results WBC 10.56 K/ul (4.8-10.8) 11/23/23 20:51 RBC 5.05 M/uL (4.20-5.40) 11/23/23 20:51 Hgb 14.6 g/dl (12.0-16.0) 11/23/23 20:51 Hct 44.5 % (37.0-47.0) 11/23/23 20:51 MCV 88.1 fL (80.0-100.0) 11/23/23 20:51 MCH 28.9 pg (25.0-34.0) 11/23/23 20:51 MCHC 32.8 g/dL (32.0-36.0) 11/23/23 20:51 RDW Std Deviation 42.2 fL (36.4-46.3) 11/23/23 20:51 RDW Coeff of Steven 13.2 % (11.5-14.5) 11/23/23 20:51 Plt Count 307 K/uL (130-400) 11/23/23 20:51 MPV 9.6 fL (9.4-12.4) 11/23/23 20:51 Immature Gran % (Auto) 0.4 % 11/23/23 20:51 Neut % (Auto) 74.7 % 11/23/23 20:51 Lymph % (Auto) 13.8 % 11/23/23 20:51 [place] % (Auto) 9.8 % 11/23/23 20:51 Eos % (Auto) 0.9 % 11/23/23 20:51 Baso % (Auto) 0.4 % 11/23/23 20:51 Neut # (Auto) 7.89 K/uL (1.40-6.50) H 11/23/23 20:51 Lymph # (Auto) 1.46 K/uL (1.20-3.40) 11/23/23 20:51 [place] # (Auto) 1.04 K/uL (0.11-0.59) H 11/23/23 20:51 Eos # (Auto) 0.09 K/uL (0.00-0.50) 11/23/23 20:51 Baso # (Auto) 0.04 K/uL (0.00-0.20) 11/23/23 20:51 Immature Gran # (Auto) 0.04 K/uL (0.01-0.20) 11/23/23 20:51 PT 10.9 Seconds (9.0-12.0) 11/23/23 20:51 INR 1.0 (0.9-1.1) 11/23/23 20:51 Sodium 137 mmol/L (136-145) 11/23/23 20:51 Potassium 3.9 mmol/L (3.5-5.1) 11/23/23 20:51 Chloride 101 mmol/L (98-107) 11/23/23 20:51 Carbon Dioxide 25 mmol/L (21-32) 11/23/23 20:51 Anion Gap 11 (3-11) 11/23/23 20:51 BUN 21 mg/dl (6-23) 11/23/23 20:51 Creatinine 0.82 mg/dl (0.6-1.2) 11/23/23 20:51 Est Cr Clr Drug Dosing 72.0 ml/min 11/23/23 20:51 Est GFR ( Amer) 81.1 ml/min 11/23/23 20:51 Est GFR (Non-Af Amer) 70.0 ml/min 11/23/23 20:51 BUN/Creatinine Ratio 25.6 (10-20) H 11/23/23 20:51 Glucose 153 mg/dl (70-99(Fasting)) H 11/23/23 20:51 Lactate 1.3 mmol/L (0.4-2.0) 11/23/23 23:11 Calcium 10.4 mg/dl (8.6-10.3) H 11/23/23 20:51 Magnesium 2.0 mg/dl (1.7-2.4) 11/23/23 20:51 Total Bilirubin 0.6 mg/dl (0.2-1.0) 11/23/23 20:51 AST 17 U/L (13-39) 11/23/23 20:51 ALT 17 U/L (7-52) 11/23/23 20:51 Alkaline Phosphatase 82 U/L (34-104) 11/23/23 20:51 Troponin I High Sens 4.5 pg/ml (0-14) 11/23/23 20:51 Total Protein 8.2 gm/dl (6.0-8.3) 11/23/23 20:51 Albumin 4.7 gm/dl (3.4-5.0) 11/23/23 20:51 Globulin 3.5 gm/dl (2.5-4.0) 11/23/23 20:51 Albumin/Globulin Ratio 1.3 (0.9-2) 11/23/23 20:51 Lipase 6 U/L (11-82) L 11/23/23 20:51 Impressions KUB X-Ray 11/23/23 20:52 KUB CLINICAL HISTORY: Generalized abdominal pain. FINDINGS: 2 AP, portable, supine abdominal radiographs are correlated with abdominal CT dated 08/23/2023. There are distended and gas-filled loops of small bowel which measure up to 4.5 cm diameter. Findings suggest obstruction. Fecal retention is noted in the right colon. No evidence of intraperitoneal free air is seen on these supine images. There are no abnormal abdominal calcifications. The skeletal structures are osteopenic and appear intact. There is moderate lumbosacral spondylosis. IMPRESSION: Distended and gas-filled loops of small bowel suggest obstruction. Correlate clinically. Electronically signed by: Trino Vick M.D. 11/23/2023 9:38 PM Abdomen/Pelvis CT 11/23/23 22:07 Exam(s): CT ABDOMEN + PELVIS With Contrast IV Amt: 88 ML OPTIRAY 320 EXAM: CT Abdomen and Pelvis With Intravenous Contrast CLINICAL HISTORY: Reason for exam: severe abd pain. TECHNIQUE: Axial computed tomography images of the abdomen and pelvis with intravenous contrast. CTDI is 28.14 mGy and DLP is 1408.89 mGy-cm. Automated exposure control was utilized for the study. A dose lowering technique was utilized adhering to the principles of ALARA. CONTRAST: Patient received 88 ML OPTIRAY 320 of IV contrast COMPARISON: No relevant prior studies available. FINDINGS: Lung bases: Unremarkable. No mass. No consolidation. Mediastinum: Moderate size esophageal hiatal hernia. ABDOMEN: Liver: Unremarkable. No mass. Gallbladder and bile ducts: Unremarkable. No calcified stones. No ductal dilation. Pancreas: Unremarkable. No mass. No ductal dilation. Spleen: Unremarkable. No splenomegaly. Adrenals: Unremarkable. No mass. Kidneys and ureters: Unremarkable. No solid mass. No hydronephrosis. Stomach and bowel: Low-grade small bowel obstruction centered on a infraumbilical anterior abdominal wall hernia. No mucosal thickening. PELVIS: Appendix: No findings to suggest acute appendicitis. Bladder: Unremarkable. No mass. Reproductive: Unremarkable as visualized. ABDOMEN and PELVIS: Intraperitoneal space: Unremarkable. No free air. No significant fluid collection. Bones/joints: No acute fracture. No dislocation. Soft tissues: See above. Vasculature: Unremarkable. No abdominal aortic aneurysm. Lymph nodes: Unremarkable. No enlarged lymph nodes. IMPRESSION: Low-grade small bowel obstruction centered on infraumbilical anterior abdominal wall hernia Electronically signed by: Fabiano Haas MD 11/23/23 23:10 PM ECG Additional Comments: ECG. Normal sinus rhythm rate of 68. No significant change was found. Code Status & VTE Plan VTE Prophylaxis Plan VTE Prophylaxis will be ordered: Yes
[2023-11-24] MEDS ORDERED: MoRPHine SULFATE 4 MG/ML 1 ML CARP\\VIAL IV PRN (04:15)
[2023-11-24] MEDS ORDERED: ACETAMINOPHEN 325 MG TAB PO PRN (04:15)
[2023-11-24] MEDS ORDERED: hydrALAZINE HCL 20 MG/ML VIAL IV PRN (04:15)
[2023-11-24] MEDS: PRAMIPEXOLE DIHYDROCHLO 0.25 MG TAB PO STA (05:00)
[2023-11-24] MEDS: D5W AND 1/2NSS 1,000 ML IV SCH (05:31)
[2023-11-24 06:07] LABS: BUN Creatinine Ratio 25.9 (10-20); Calcium 8.9 mg/dl (8.6-10.3); Creatinine Clr Calc Pharmacy 72.2 ml/min; Est GFR (African American) 82.3 ml/min
[2023-11-24] MEDS: MoRPHine SULFATE 2 MG/ML CARP IV STA (06:16)
[2023-11-24 06:20] LABS: Basophils # (auto) 0.02 K/uL (0.00-0.20); Basophils % (auto) 0.3 %; Eosinophils # (auto) 0.05 K/uL (0.00-0.50); Eosinophils % (auto) 0.8 %; Hematocrit (blood only) 34.7 % (37.0-47.0); Hemoglobin 11.5 g/dl (12.0-16.0); Immature Granulocytes # (auto) 0.03 K/uL (0.01-0.20); Immature Granulocytes % (auto) 0.5 %; Lymphocytes # (auto) 1.49 K/uL (1.20-3.40); Lymphocytes % (auto) 22.9 %; Mean Corpuscular Hemoglobin 29.5 pg (25.0-34.0); Mean Corpuscular Hgb Conc 33.1 g/dL (32.0-36.0); Mean Platelet Volume 9.5 fL (9.4-12.4); Monocytes # (auto) 0.85 K/uL (0.11-0.59); Monocytes % (auto) 13.1 %; Neutrophils # (auto) 4.06 K/uL (1.40-6.50); Neutrophils % (auto) 62.4 %; Platelet Count 217 K/uL (130-400); RDW Coefficient of Variation 13.2 % (11.5-14.5); RDW Standard Deviation 43.1 fL (36.4-46.3)
[2023-11-24] MEDS: ONDANSETRON INJ 2 MG/ML 2 ML VIAL IV PRN (06:23)
[2023-11-24 06:34] LABS: Appearance Urine Clear (Clear); Bacteria Urine Automated Negative (Negative); Bilirubin Urine Negative (Negative); Blood Urine Trace (Negative); Color Urine Yellow; Glucose Urine UA Negative (Negative); Ketones Urine Trace (Negative); Leukocyte Esterase Urine Trace (Negative); Nitrite Urine Negative (Negative); Protein Urine Negative (Negative); RBC Urine Automated 0-4 /hpf (0-4); Specific Gravity Urine > 1.045 (1.000-1.030); Urobilinogen Urine Negative (Negative); pH Urine 5.5 (4.5-7.5)
--- NOTE | 2023-11-24 07:25 | Anesthesiology Consultation ---
Date of Service November 24, 2023 Assessment & Plan (1) Encounter for pre-operative examination: Chart Review Chart Review: Acceptable Risk for Surgery and Patient NOT seen in Pre Admission Testing Consults Requested none History Surgery Operation Date: 11/24/23 08:55 Proposed Procedures p Possible Open Ventral Hernia Repair with Possible Mesh - Kahlil Isabel, Height/Weight Height: 5 ft 4 in Weight: 108.5 kg Allergies Allergy/AdvReac Type Severity Reaction Status Date / Time lisinopril Allergy Severe THROAT Verified 10/27/23 09:04 SWELLING/SOB sulfamethoxazole Allergy Mild Rash Verified 10/27/23 09:04 [From Bactrim] trimethoprim [From Bactrim] Allergy Mild Rash Verified 10/27/23 09:04 latex Allergy Unknown Rash Verified 10/27/23 09:04 Penicillins Allergy Unknown SHORTNESS Verified 10/27/23 09:04 OF BREATH empagliflozin AdvReac Intermediate Abdominal Verified 10/27/23 09:04 [From Jardiance] Pain Medications Home Medications Medication Instructions Recorded Confirmed Last Taken anastrozole 1 mg tablet 1 mg PO DAILY 11/24/23 11/24/23 Unknown carvedilol 12.5 mg tablet 12.5 mg PO BID 11/24/23 11/24/23 Unknown gabapentin 100 mg capsule 100 mg PO HS 11/24/23 11/24/23 Unknown levothyroxine 175 mcg tablet 175 mcg PO UD 11/24/23 11/24/23 Unknown omeprazole 20 mg capsule,delayed 20 mg PO DAILY 11/24/23 11/24/23 Unknown release oxycodone-acetaminophen 5 mg-325 0.25 tab PO BID 11/24/23 11/24/23 Unknown mg tablet pramipexole 0.5 mg tablet 0.5 mg PO UD 11/24/23 11/24/23 Unknown torsemide 10 mg tablet 10 mg PO DAILY 11/24/23 11/24/23 Unknown Active Medications Generic Name Dose Route Start Last Admin Trade Name Freq PRN Reason Stop Dose Admin Dextrose/Sodium Chloride 1,000 mls @ 80 mls/hr 11/24/23 04:15 11/24/23 05:31 D5w And 1/2nss IV 11/25/23 05:14 80 mls/hr .[id number] LEYDI Administration Ondansetron HCl 4 mg 11/24/23 04:15 11/24/23 06:23 Ondansetron Inj 2 Mg/Ml 2 Ml Vial IV 12/24/23 04:14 4 mg Q6H PRN Administration Nausea Past Medical History Medical History History of anesthesia problem "hard time coming out of it, don't remember ride home from the hospital" Sleep apnea CPAP; "hasn't used in 2 weeks due to tingling in her cheek from her mask/magnet, waiting for special pads to arrive" History of COVID-19 11/2021, home test, not hosp; "bad" congestion, chills, fatigue>"still feels tired all the time and not as strong physically" History of Mohs micrographic surgery for skin cancer BCC forehead CHF (congestive heart failure) f/u dr. hamilton, [facility] Basal cell carcinoma of face Forehead Gastroesophageal reflux disease Hiatal hernia Breast cancer, right Biopsy on 07/06/21; XRT and sx Numbness and tingling in both hands "just a little on the left side remains" DDD (degenerative disc disease) Idiopathic polyneuropathy Lumbar radiculopathy Lumbar spinal stenosis Endometrial hyperplasia hx ASCUS favor benign 06/12/07; 05/2006 Restless leg syndrome Migraine hx Hypothyroidism Hypertension S/p exercise stress echo 06/2020 negative for inducible ischemia S/p nuclear stress test 07/2021 negative for ischemia Chronic diastolic CHF Holding torsemide Getting gentle fluids Monitor for volume overload Past Family History Family History Father , 90yo Laryngeal cancer Restless leg syndrome Sister Restless leg syndrome Brother Restless leg syndrome Hypertension Grandmother (Maternal) Cardiac disorder Grandmother (Paternal) Cardiac disorder Aunt Breast cancer maternal Mother , 90yo Alzheimer disease Unknown Colorectal cancer maternal cousin 50s, paternal cousin 50s. Brother Depression Restless leg syndrome Brother No problems noted. Brother Aplastic anemia Daughter No problems noted. Daughter Fainting Frequently but unknown cause Other No significant family history Denies family history of Ovarian cancer Past Surgical History Surgical History Hx of colonoscopy History of carpal tunnel surgery of left wrist History of surgery "Turbinate resection" Status post right breast lumpectomy 08/17/21 Dr. Leong S/P dilation and curettage H/O foot surgery Bilateral H/O shoulder surgery 2015 - Bilateral arthroscopic S/P tonsillectomy and adenoidectomy History of arthroplasty of left knee "09/21/16 Dr. Villavicencio" S/P left knee arthroscopy "2006" History of arthroplasty of right knee "2013 Dr. Villavicencio" Social History Smoking Status: Never smoker Do You Dip or Chew Tobacco: No Hx Alcohol Use: Yes Alcohol type: beer, wine and hard liquor alcohol intake frequency: a few times a month Hx Substance Use: No substance use type: former substance user Physical Exam Vital Signs Last Vital Signs Temp 36.6 C 11/24/23 03:30 Pulse 64 11/24/23 03:30 Resp 18 11/24/23 03:30 BP 115/75 11/24/23 03:30 Pulse Ox 96 11/24/23 03:30 O2 Del Method Room Air 11/24/23 03:30 Testing Laboratory Results 11/24/23 05:32 11/24/23 05:32 PT 10.9 Seconds (9.0-12.0) 11/23/23 20:51 INR 1.0 (0.9-1.1) 11/23/23 20:51 Urine Color Yellow 11/24/23 05:20 Urine Appearance Clear (Clear) 11/24/23 05:20 Urine pH 5.5 (4.5-7.5) 11/24/23 05:20 Ur Specific [place] > 1.045 (1.000-1.030) H 11/24/23 05:20 Urine Protein Negative (Negative) 11/24/23 05:20 Urine Glucose (UA) Negative (Negative) 11/24/23 05:20 Urine Ketones Trace (Negative) H 11/24/23 05:20 Urine Nitrite Negative (Negative) 11/24/23 05:20 Ur Leukocyte Esterase Trace (Negative) H 11/24/23 05:20 Urine WBC (Auto) 10-30 /hpf (0-5) H 11/24/23 05:20 Urine RBC (Auto) 0-4 /hpf (0-4) 11/24/23 05:20 U Hyaline Cast (Auto) 1-5 /lpf (0-5) 11/24/23 05:20 U Epithel Cells (Auto) 10-20 /lpf (0-5) H 11/24/23 05:20 Urine Bacteria (Auto) Negative (Negative) 11/24/23 05:20 Electrocardiogram Date: 11/23/23 Normal sinus rhythm Normal ECG When compared with ECG of 30-SEP-2018 20:52, No significant change was found Other Testing 11/23/23: Exam(s): CT ABDOMEN + PELVIS With Contrast IV Amt: 88 ML OPTIRAY 320 EXAM: CT Abdomen and Pelvis With Intravenous Contrast CLINICAL HISTORY: Reason for exam: severe abd pain. TECHNIQUE: Axial computed tomography images of the abdomen and pelvis with intravenous contrast. CTDI is 28.14 mGy and DLP is 1408.89 mGy-cm. Automated exposure control was utilized for the study. A dose lowering technique was utilized adhering to the principles of ALARA. CONTRAST: Patient received 88 ML OPTIRAY 320 of IV contrast COMPARISON: No relevant prior studies available. FINDINGS: Lung bases: Unremarkable. No mass. No consolidation. Mediastinum: Moderate size esophageal hiatal hernia. ABDOMEN: Liver: Unremarkable. No mass. Gallbladder and bile ducts: Unremarkable. No calcified stones. No ductal dilation. Pancreas: Unremarkable. No mass. No ductal dilation. Spleen: Unremarkable. No splenomegaly. Adrenals: Unremarkable. No mass. Kidneys and ureters: Unremarkable. No solid mass. No hydronephrosis. Stomach and bowel: Low-grade small bowel obstruction centered on a infraumbilical anterior abdominal wall hernia. No mucosal thickening. PELVIS: Appendix: No findings to suggest acute appendicitis. Bladder: Unremarkable. No mass. Reproductive: Unremarkable as visualized. ABDOMEN and PELVIS: Intraperitoneal space: Unremarkable. No free air. No significant fluid collection. Bones/joints: No acute fracture. No dislocation. Soft tissues: See above. Vasculature: Unremarkable. No abdominal aortic aneurysm. Lymph nodes: Unremarkable. No enlarged lymph nodes. IMPRESSION: Low-grade small bowel obstruction centered on infraumbilical anterior abdominal wall hernia
[2023-11-24] MEDS: PANTOprazole 40 MG TAB PO SCH (08:27)
[2023-11-24] MEDS: ANASTROZOLE 1 MG TAB PO SCH (08:27)
[2023-11-24] MEDS: carvediloL 12.5 MG TAB PO SCH (08:27)
[2023-11-24] MEDS ORDERED: fentaNYL citrate PF 100 MCG/2 ML VIAL ONE (08:41)
[2023-11-24] MEDS ORDERED: ePHEDrine sulfate 50 MG/ML AMP IV PRN (09:10)
[2023-11-24] MEDS ORDERED: fentaNYL citrate PF 100 MCG/2 ML VIAL IV PRN (09:10)
[2023-11-24] MEDS ORDERED: ONDANSETRON INJ 2 MG/ML 2 ML VIAL IV PRN (09:10)
[2023-11-24] MEDS ORDERED: ATROPINE SULFATE 0.1 MG/ML 10ML SYR IV PRN (09:10)
[2023-11-24] MEDS ORDERED: ACETAMINOPHEN 1000 MG/100 ML IV IV ONE (09:18)
[2023-11-24] MEDS: CLINDAMYCIN 900 MG/D5W 50 ML BAG IV ONE (09:42)
[2023-11-24] MEDS ORDERED: LARYING-O-JET KIT (LTA) ONE (09:55)
[2023-11-24] MEDS ORDERED: LIDOCAINE 2% 2 ML VIAL/AMP(20MG/ML) INFIL ONE (09:55)
[2023-11-24] MEDS ORDERED: ONDANSETRON INJ 2 MG/ML 2 ML VIAL ONE (09:55)
[2023-11-24] MEDS ORDERED: SUCCINYLCHOLINE CHLORIDE 20 MG/ML 10 ML VIAL IV ONE (09:55)
[2023-11-24] MEDS ORDERED: ROCURONIUM BROMIDE 10 MG/ML 5 ML VIAL IV ONE (09:55)
[2023-11-24] MEDS ORDERED: PROPOFOL IV EMULSION 10 MG/ML 20 ML VIAL IV ONE (09:55)
[2023-11-24] MEDS ORDERED: SUGAMMADEX SODIUM 200 MG/2 ML VIAL IV ONE (09:56)
[2023-11-24] MEDS: ceFAZolin 2000MG 2,000 MG/15 ML SYR IV ONE (10:22)
[2023-11-24] MEDS: BUPIVACAINE/EPINEPHRINE 0.5% MPF 1:200,000 30 ML VIAL ONE (10:22)
[2023-11-24] MEDS: ceFAZolin 2,000 MG/15 ML IV PUSH IV ONE (10:22)
--- NOTE | 2023-11-24 10:37 | Operative Report ---
PG Post Operative Report Pre & Post Diagnosis Operation Date: 11/24/23 08:55 Pre-Op Diagnosis: Ventral hernia, small bowel obstruction Post-Op Diagnosis: Ventral hernia, small bowel obstruction I identified the patient and participated in the time-out.: Yes Procedure Operation Date: 11/24/23 08:55 Actual Procedures p Open Ventral Hernia Repair(Not Applicable) - Kahlil Isabel DO Surgeon Kahlil Isabel DO Management Recruiter jaylen Cárdenas Estimated Blood Loss 5 Findings Consistent with Post-Op Diagnosis Specimens none Description of Procedure After informed consent was obtained the patient was taken to the operating room and placed in supine position. After successful placement of the laryngeal mask airway the abdomen was sterilely prepped and draped in usual fashion. A curvilinear infraumbilical incision was made with a 15 blade scalpel and carried down through the soft tissue using cautery. This was carried down to the anterior fascia. A Nena clamp was then used to come around the superior aspect of the umbilicus. The umbilical stalk was detached using cautery exposing a 3 cm hernia defect. There was no incarcerated bowel with hernia sac with some preperitoneal fat and omentum. I excised the hernia sac in its entirety. I was able to reduce the hernia contents back into the abdominal cavity. I then mounika lisa closed the fascial defect using 1 Ethibond in simple interrupted fashion. Because of the rather small size of the defect I opted to not use mesh. Once the defect was closed I thoroughly irrigated the wound. There was adequate hemostasis. Next I reattached the umbilical stalk using 0 Vicryl. Deep layers were closed using 3-0 Vicryl and skin was closed using 4-0 Monocryl. Marcaine with epinephrine was injected around the surgical site for postoperative analgesia. Dermabond glue was used to cover the incision. The patient was awakened, extubated and transferred to recovery in stable condition. My physician advertising assistant was present for the entire case. She helped prep the patient, helped with retraction and exposure during my dissection as well as with wound closure and dressing placement I attest to the content of the Intraoperative Record and any orders documented therein. Any exceptions are noted below.
--- OUTSIDE RECORDS SUMMARY | 2023-11-24 10:58 | External Medical Summary | Summary of Care ---
Author Name Unknown Organization [facility] Address [address] [facility] [place] [address] Phone [phone] Care Team Providers Care Catalytic Converter Operator Helper Name Role Phone Jodi Garcia MD Primary Care Provider [phone] Reason for Visit * Reason Comments eRx-Medication Refill Encounter Details Date Type Department Care Team (Late st Contact Info) Description 10/28/2023 Refill Cardiology, [facility] [address] [place] [address] Domi Varghese CRNP [address] [place] [id number] Heart failure, diastolic, due to HTN (HCC) Allergies Active Allergy Reactions Criticality Noted Date Comments Sulfamethoxazole-Trimethopr im Rash Low 11/02/2016 Empagliflozin Medium 06/14/2023 Did not feel well, myalgia, fogginess in the head Latex Rash 09/27/2017 Lisinopril Edema airway High 08/03/2013 ? Throat swelling noted; no emergency visit required Penicillins Edema airway High 08/03/2013 ? Throat tightness, swelling, No generalized hives, respiratory difficulties or need for ER visit Zoster Vac Recomb Adjuvanted Rash Medium 05/15/2023 Sulfamethoxazole Rash Low 09/30/2018 Trimethoprim Rash Low 09/30/2018 documented as of this encounter (statuses as of 10/30/2023) Medications Medication Sig Dispensed Refills Start Date End Date Status Fluticasone Propionate 50 MCG/ACT Nasal SuspensionIndicatio ns:Moderate obstructive sleep apnea,Nasal congestion,Postnasa l drip,Snoring Administer into each nostril 2 Sprays before bedtime. At bedtime--st 05/19/2022. 15.8 mL 0 2 Active Carvedilol 12.5 MG Oral Tablet (Coreg)Indications: Palpitation TAKE ONE TABLET BY MOUTH TWICE DAILY. TAKE WITH FOOD 180 Tablet 3 3 Active Anastrozole 1 MG Oral Tablet (Arimidex) 1 Tablet. 0 2 Active Cyanocobalamin 1000 MCG Oral Tablet (Cyanocobalamin) DAILY IN THE MORNING 0 3 Active Pramipexole Dihydrochloride 0.5 MG Oral Tablet (Mirapex)Indication s:Restless legs syndrome 1 tab at 4pm, 1/2 tab at 9 pm- Rx DrRoy 60 Tablet 5 3 Active Vitamin D-400 10 MCG (400 UNIT) Oral Tablet (cholecalciferol (VIT D3))Indications:Sen ile osteoporosis,Vitami n D insufficiency one pill each day--st 05/15/2023 1 Tablet 0 3 Active Calcium Carb-Cholecalcifero l 500-10 MG-MCG Oral Tablet (SM Calcium 500/Vitamin D3) Take 1 Tablet by mouth. 0 Active Levothyroxine Sodium 175 MCG Oral Tablet (Levoxyl)Indication s:Acquired hypothyroidism TAKE 1 TABLET BY MOUTH ONCE DAILY IN THE MORNING SIX DAYS PER WEEK, AT LEAST 30 MINUTES BEFORE BREAKFAST OR OTHER MEDICATIONS SINCE 11/02/22 90 Tablet 1 3 Active oxyCODONE-Acetamino phen 5-325 MG Oral Tablet (Percocet)Indicatio ns:Spinal stenosis of lumbar region without neurogenic claudication,Arthra lgia of both knees,Primary osteoarthritis involving multiple joints Take 0.25 Tablets by mouth in the morning and 0.25 Tablets in the evening. -takes 1/4 tab In day and 1/4 tab at 9 pm for severe RLS. 45 Tablet 0 3 Active Gabapentin 100 MG Oral Capsule (Neurontin) Take 1 Capsule by mouth at bedtime. --dec DrRoy 08/31 0 3 Active Ondansetron HCl 4 MG Oral TabletIndications:N ausea,Abdominal bloating,Abdominal pain, epigastric,Hiatal hernia Take 1 Tablet by mouth every 8 hours as needed for Nausea. 30 Tablet 0 3 Active Omeprazole 20 MG Oral Capsule Delayed Release (PriLOSEC)Indicatio ns:Nausea,Hiatal hernia Take 1 Capsule by mouth in the morning and 1 Capsule before bedtime. Inc 08/28/2023. 1 Capsule 0 3 Active Torsemide 10 MG Oral Tablet (Demadex)Indication s:Heart failure, diastolic, due to HTN (HCC) Take 1 Tablet by mouth in the morning. 90 Tablet 3 4 Active Torsemide 5 MG Oral Tablet (Demadex)Indication s:Heart failure, diastolic, due to HTN (HCC) Take 1 Tablet by mouth in the morning. -takes extra dose only 1/wk if travels. 180 Tablet 3 3 10/30/19 24 Discontinued documented as of this encounter (statuses as of 10/30/2023) Active Problems Problem Noted Date Diagnosed Date Adnexal cyst 08/27/2023 Overview: 2.7 cm left adnexal cyst on CT 08/31-ultrasound pelvis- Hiatal hernia 11/14/2022 Urge incontinence of urine 11/14/2022 Ductal carcinoma in situ (DCIS) of right breast 05/19/2022 Overview: 06/2021 Senile osteoporosis 10/18/2021 Iron deficiency anemia 10/18/2021 History of total bilateral knee replacement 11/2020 Invasive ductal carcinoma of breast, stage 1, ri ght 08/10/2021 History of colonoscopy 08/10/2021 Pap smear for cervical cancer screening 08/10/20 21 Overview: Neg 01/2018 Moderate obstructive sleep apnea 08/02/2021 Overview: 04/12/22--mod DAGMAR with noc hypoxia>to start cpap 6-12 cwp>05/30 awaiting from [facility] Paroxysmal SVT (supraventricular tachycardia) Type 2 diabetes mellitus wit h hemoglobin A1c goal of less than 7.0% 06/15/2021 Body mass index (BMI) of 40.0 to 44.9 in adult 0 02/16/2021 Overview: Per Obesity protocol Heart failure, diastolic, due to HTN 07/28/2020 Neuropathy 05/28/2015 Spinal stenosis of lumbar re gion without neurogenic claudication 01/04/2010 HTN, goal below 140/90 11/27/2002 MIGRAINE, UNSPECIFIED, WITHO UT MENTION OF INTRACTABLE MIGRAINE 01/10/2001 Restless legs syndrome 01/10/2001 Acquired hypothyroidism 01/10/2001 documented as of this encounter (statuses as of 10/30/2023) Resolved Problems Problem Noted Date Diagnosed Date Resolved Date Screening for osteoporosis 08/10/2021 0 10/18/2021 Morbid obesity due to excess calories 02/13/2020 08/10/2021 Prediabetes 11/21/2017 06/15/2021 Overview: Per Prediabetes protocol #1 Osteoarthritis of knee 03/17/201410/12 Fall down stairs 08/03/2013 09/27/2017 Subdural hemorrhage following injury 08/03/2013 09/27/2017 Contusion of arm, right, multiple sites 08/03/2013 09/27/2017 Contusion of knee, right 08/03/2013 Obesity, Class II, BMI 35-39 .9, isolated (see actual BMI) 03/22/2010 06/15/2021 Overview: Per Obesity Protocol, #19 JOINT PAIN - BILATERAL KNEE DJD 02/26/2009 04/03/2020 Restless leg syndrome 12/13/20072016 BACKACHE NOS 07/04/2005 10/12/2018 ADVANCE DIRECTIVE INFORMATION 02/28/2005 03/14/2017 Overview: No, Advance Directive brochure given to patient. ADJ DISORDER W/DEPRES MOOD 11/27/2002 1 10/10/2020 Vascular hamartoma 01/10/2001 7 Osteoarthrosis 01/10/2001 08/10/2021 Dyslipidemia, goal to be determined 02/15/2007 Ventricular premature contractions 04/03/2020 Popliteal synovial cyst 01/2019 documented as of this encounter (statuses as of 10/30/2023) Immunizations Name Administration Dates Next Due COVID-19 mRNA, LNP-s, No Pre serve, 2-Dose Series (Moderna) 11/28/2020,10/29/2020 COVID-19 mRNA, LNP-s, No Pre serve, 2-Dose Series (Pfizer) 05/16/2022 COVID-19, mRNA, LNP-s, PF, B ooster, 100mcg/0.5mg (Moderna) 08/04/2021 Pneumococcal Conjugate Vacc, 13 Valent (Prevnar) 07/07/2017 Pneumococcal Polysaccharide PPV23 (Pneumovax) Season Influenza, Quad, PF, Adjuvanted, 65+ Yrs, IM (FLUAD) 08/03/2023,07/01/2020 Seasonal Influenza Virus Vac cine, Unspecified Formulation 09/25/2022 Seasonal Influenza, Quadrivalent Hd (Fluzone Hd) 10/18/2021 TD - Tetanus/Diptheria (ADULT) 12/13/2007 TDAP (age 10 and older)(Boostrix) 05/21/2015 Varicella Zoster Vaccine (Adult) 03/20/2014 Zoster Vaccine Recombinant (Shingrix) 03/20/2014 documented as of this encounter Social History Tobacco Use Types Packs/Day Years Used Date Smoking Tobacco: Never Smokeless Tobacco: Never Comments:was exposed to seco [place] hand smoke from both parents as a child Alcohol Use Standard Drinks/Week Comments Yes 0 (1 standard drink = 0.6 oz pure alcohol) three times a week- mini wine shared with spouse PHQ-2 Answer Date Recorded PHQ Adult Total Score 0 05/15/2023 Hunger Vital Sign Answer Date Recorded Worried About Running Out of Food in the Last Ye ar Never true 09/27/2019 Ran Out of Food in the Last Year Never true 09/27/2019 Sex and Gender Information Value Date Recorded Sex Assigned at Not on file Gender Identity Not on file Sexual Orientation Not on file Job Start Date Occupation Industry Not on file Not on file Not on file documented as of this encounter Miscellaneous Notes * Telephone Encounter - Domi Varghese CRNP - 10/30/2023 11:00 AM EST Signed Prescriptions: Disp Refills Torsemide 10 MG Oral Tablet (Demadex) 90 Tab*3 Sig: Take 1 Tablet by mouth in the morning. Authorizing Provider: DOMI VARGHESE * Telephone Encounter - Yue Boykin COT - 10/30/2023 9:15 AM ESTPending Prescriptions: Disp Refills Torsemide 10 MG Oral Tablet (Demadex) 90 Tab*3 Sig: Take 1 Tablet by mouth in the morning. * Telephone Encounter - Yue Boykin COT - 10/30/2023 9:15 AM EST Did you pend patient's preferred pharmacy and medication before forwarding?yes Pharmacy: [facility] [id number] Pending Prescriptions: Disp Refills Torsemide 10 MG Oral Tablet (Demadex) [Ph*90 Tab*3 Sig: Take 1 Tablet by mouth in the morning. Last Visit: 02/07/2023 (in office), Visit date not found (telemedicine) Next Visit: 02/19/2024 If no future appointments scheduled, and last appointment is greater than a year ago, please schedule patient for a follow-up appointment Last date the medication was ordered: 05-15-2023 Is this request for a controlled substance?No Urine Drug Screen: Results for orders placed or performed during the hospital encounter of 08/03/13 TOX SCREEN, URINE, W/ CONFIRMATION Result Value Amphetamine NEGATIVE Barbiturates NEGATIVE Benzodiazepines NEGATIVE Cannabinoids NEGATIVE Cocaine Metabolite NEGATIVE Morphine / Codeine NEGATIVE METHADONE MEDICAL NEGATIVE OXYCODONE NEGATIVE TOX COMMENT SCREENING RESULTS ARE PRESUMPTIVE AND CAN ONLY BE USED FOR MEDICAL PURPOSES. POSITIVE RESULTS REFLEX TO CONFIRMATORY TESTING. Cutoff Concentration *Note: Due to a large number of results and/or encounters for the requested time period, some results have not been displayed. A complete set of results can be found in Results Review. Patient Phone Numbers Labs: Lab Results Component Value Date/Time CREAT 0.8 08/15/2023 09:30 AM CREAT 0.9 11/02/2020 07:13 AM CREAT 0.7 12/04/1996 02:25 PM POTASSIUM 4.4 08/15/2023 09:30 AM POTASSIUM 4.2 11/02/2020 07:13 AM POTASSIUM 4.0 12/04/1996 02:25 PM TSH 1.79 05/10/2023 07:57 AM TSH 2.97 07/28/2020 10:29 AM TSH 47.61 (H) 11/06/1996 01:30 PM LDLCALC 102 11/02/2022 08:23 AM LDLCALC 73 10/27/2016 09:14 AM LDLDIRECT 118 05/10/2023 07:57 AM LDLDIRECT NOT APPLICABLE 10/27/2016 09:14 AM LDLDIRECT 90 03/17/2014 11:15 AM ALT 15 08/15/2023 09:30 AM ALT 15 07/28/2020 10:29 AM ALT 18 12/04/1996 02:25 PM HGBA1C 6.5 (H) 05/10/2023 07:57 AM HGBA1C 6.5 (H) 07/28/2020 10:29 AM * Telephone Encounter - Interface, E-Rx Ss Inbound - 10/30/2023 6:04 AM EST Pending Prescriptions: Disp Refills Torsemide 5 MG Oral Tablet [Pharmacy Med N*180 Ta*0 Sig: TAKE 2TABLETS BY MOUTH ONCE DAILY documented in this encounter Plan of Treatment Upcoming Encounters Date Type Department Care Team (Late st Contact Info) Description 11/10/2023 11:00 AM EST PulmDiagnostic Sleep Lab Sylvie Milner [address] [place] [phone] Alf Sleep Med Home Study Sylvie [address] [place] [id number] 12/25/2023 11:20 AM EDT Office Visit General Internal Medicine [facility] [address] [facility] [address] [facility] [place] [address] Jodi Garcia MD [address] [facility] [address] [place] [address] 01/02/2024 10:00 AM EDT Office Visit Sleep Disorders Ctr [facility] [address] [place] [phone] Tiera Salgado DO [address] [place] [address] 02/05/2024 11:00 AM EDT Office Visit Rheumatology [address] [place] [address] Dario Neely MD [address] [place] [address] [place] [address] 02/19/2024 10:30 AM EDT [facility] [address] [place] [address] Domi Varghese CRNP [address] [place] [id number] Scheduled Procedures Name Priority Associated Diagnoses Date/Ti me COLONOSCOPY FLEXIBLE PROXIMAL DIAGNOSTIC Recall History of colon polyps Health Maintenance Due Date Last Done Comments Hepatitis B (1 of 3 - Risk 3-dose series) 2008 Zoster Vaccines (3 of 3) 05/15/2014 03/20/2014, 03/09 Diabetic Foot Exam 08/10/2022 08/10/2021 COVID-19 Vaccine ( season) 2023 05/16/2022, 08/04/2021, 11/28/2020, Additional history exists HbA1c 11/10/2023 05/10/2023, 10/10, 04/12/2022, Additional history exists Diabetic Eye Exam 01/03/2024 01/02/2023, , 12/07/2021 Albumin/Creatinine Ratio 05/10/2024 023, 05/19/2022, 06/15/2021 TSH 05/10/2024 05/10/2023, 12/08, 11/02/2022, Additional history exists Depression Screening 05/15/2024 05/15/2023 GFR 08/15/2024 08/15/2023, 05/11, 05/10/2023, Additional history exists DTaP,Tdap,and Td Vaccines (2 - Td or Tdap) 05/21/2025 05/21/2015, 12/13/2007 COLONOSCOPY-EVERY 5 YRS AGES 18-100 06/11/2025 06/11/2020, 06/11/2020, 06/19/2015, Additional history exists DXA Scan 10/04/2025 10/04/2023, 09/09, 09/27/2021, Additional history exists Pneumococcal Vaccine: 65+ Years Completed 07/28/2020, 07/07/2017 VITAMIN D LEVEL ONCE IN A LIFETIME-USE SMARTSET# [id number] Completed 05/10/2023, 02/07/2023, 11/02/2022, Additional history exists Influenza Vaccine (FLU shot) Completed , 09/25/2022, 09/19/2022, Additional history exists GARDASIL-HPV IMMUNIZATION SERIES Aged Out No longer eligible based on patient's age to complete this topic MENINGOCOCCAL (MENACTRA/MENVEO) Aged Out No longer eligible based on patient's age to complete this topic documented as of this encounter Medical Devices Not on filedocumented as of this encounter Visit Diagnoses Diagnosis Heart failure, diastolic, due to HTN (HCC) Unspecified hypertensive heart disease with heart failure documented in this encounter Advance Directives Latest Code Status on File Code Status Date Activated Date Inactivated Comments Full Code 08/03/2013 5:43 AM 08/04/2013 3:12 PM Thi s order reflects the patients wishes and were consensually agreed upon. Question Answer Comments Discussion of Advance Directives occurred with: Not Discussed Care Teams Catalytic Converter Operator Helper Relationship Specialty Start Date End Date Jodi Garcia MD [address] [facility] [place] [address] PCP - General Internal Medicine 06/15/21 documented as of this encounter
[2023-11-24] MEDS ORDERED: oxyCODONE HCL IR 5 MG TAB (IMMEDIATE RELEASE) PO PRN (11:30)
--- NOTE | 2023-11-24 11:47 | Electrocardiogram Report ---
Test Reason : Blood Pressure : / mmHG Vent. Rate : 068 BPM Atrial Rate : 068 BPM P-R Int : 144 ms QRS Dur : 088 ms QT Int : 428 ms P-R-T Axes : 059 006 023 degrees QTc Int : 455 ms Normal sinus rhythm Normal ECG When compared with ECG of 30-SEP-2018 20:52, No significant change was found Confirmed by Apolinar Sanchez ([id number]) on 11/24/2023 11:46:39 AM Referred By: REFERRED SELF Confirmed By:Apolinar Sanchez
[2023-11-24] MEDS: ALBUT/IPRATROP 3MG/0.5MG NEB 3 ML VIAL NEB STA (12:07)
--- NOTE | 2023-11-24 12:14 | Anesthesiology Progress Note ---
Date of Service November 24, 2023 Anesthesia Post Procedure Vital Signs Vital Signs: Temp Pulse Pulse Pulse Resp BP BP 11/24/23 12:08 80 18 11/24/23 12:00 97.9 F 70 16 180/99 H 11/24/23 11:30 97.5 F L 72 18 11/24/23 11:05 98.1 F 64 10 L 130/70 11/24/23 10:55 67 15 131/80 11/24/23 10:45 68 11 L 141/79 H 11/24/23 10:36 98.4 F 79 16 123/79 11/24/23 09:01 97.7 F 61 20 152/87 H 11/24/23 07:36 98.1 F 65 18 135/88 11/24/23 03:30 11/24/23 03:30 97.9 F 64 18 115/75 11/24/23 02:00 18 105/66 11/24/23 01:00 18 113/69 11/23/23 23:30 18 144/113 H 11/23/23 23:00 18 221/127 H 11/23/23 21:44 76 11/23/23 21:43 74 17 11/23/23 21:42 66 19 163/119 H 11/23/23 19:47 98.4 F 82 16 195/121 H BP Pulse Ox O2 Del Method O2 Flow Rate 11/24/23 12:08 96 Room Air 11/24/23 12:00 95 Room Air 11/24/23 11:30 153/78 H 92 Room Air 11/24/23 11:05 94 Room Air 11/24/23 10:55 95 Oxymask 3 11/24/23 10:45 97 Oxymask 3 11/24/23 10:36 97 Oxymask 5 11/24/23 09:01 95 Room Air 11/24/23 07:36 96 Room Air 11/24/23 03:30 Room Air 11/24/23 03:30 96 Room Air 11/24/23 02:00 90 Room Air 11/24/23 01:00 92 11/23/23 23:30 96 11/23/23 23:00 97 11/23/23 21:44 11/23/23 21:43 96 Room Air 11/23/23 21:42 95 Room Air 11/23/23 19:47 96 Room Air Pain Intensity Abdomen: Pain Intensity: 5 Transfer of Care Handoff Completed per policy Notes Mental Status: alert / awake / arousable and participated in evaluation Patient Amnestic to Procedure: Yes Nausea / Vomiting: adequately controlled Pain: adequately controlled Airway Patency, RR, SpO2: stable & adequate BP & HR: stable & adequate Hydration State: stable & adequate Anesthetic Complications: no major complications apparent and Pt Satisfied with anesthetic care
--- NOTE | 2023-11-24 12:32 | XRay Report ---
SINGLE VIEW CHEST CLINICAL HISTORY: Dyspnea FINDINGS: An AP, portable, upright chest radiograph is compared to chest x-ray and chest CT dated . The examination is degraded by portable technique and patient rotation. There is a large hia jelly hernia. The cardiomediastinal silhouette is unremarkable. There is pulmonary vascular congestion. Chronic elevation of the right hemidiaphragm is similar to previous. There is bibasilar scarring/ate lectasis. No airspace consolidation or large pleural effusion is identified. No pneumothorax is seen. The skeletal structures are osteopenic. The bony thorax is grossly intact. IMPRESSION: 1. Mild pulmonary vascular congestion. 2. Large hiatal hernia. ACT 112: Negative or not required by law. Electronically signed by: Trino Vick M.D. 11/24/2023 12:31 PM
--- OUTSIDE RECORDS SUMMARY | 2023-11-24 13:37 | External Medical Summary | Summary of Care ---
Author Name Unknown Organization [facility] Address [address] [facility] [place] [address] Phone [phone] Care Team Providers Care Control Room Agent Name Role Phone Jodi Garcia MD Primary Care Provider [phone] Reason for Visit * Reason Comments Abdominal Pain Encounter Details Date Type Department Care Team ([facility] Contact Info) Description 11/23/2023 1:40 PM EST Telemedicine [facility] [address] [place] [id number] Thaddeus Gonsalez PA-C [address] [place] [address] Abdominal cramping* Allergies Active Allergy Reactions Criticality Noted Date [...] as of this encounter (statuses as of 11/23/2023) Medications Medication Sig Dispensed Refills Start Date End Date Status Fluticasone Propionate 50 MCG/ACT Nasal SuspensionIndications :Moderate obstructive sleep apnea,Nasal congestion,Postnasal drip,Snoring Administer into each nostril 2 Sprays before bedtime. At bedtime--st 05/19/2022. 15.8 mL 0 05/19/2022 Active Carvedilol 12.5 MG Oral Tablet (Coreg)Indications:Pa lpitation TAKE ONE TABLET BY MOUTH TWICE DAILY. TAKE WITH FOOD 180 Tablet 3 12/21/2022 Active Anastrozole 1 MG Oral Tablet (Arimidex) 1 Tablet. 0 01/06/2022 Active Cyanocobalamin 1000 MCG Oral Tablet (Cyanocobalamin) DAILY IN THE MORNING 0 10/25/2022 Active Pramipexole Dihydrochloride 0.5 MG Oral Tablet (Mirapex)Indications: Restless legs syndrome 1 tab at 4pm, 1/2 tab at 9 pm- Rx DrRoy 60 Tablet 5 05/15/2023 Active Vitamin D-400 10 MCG (400 UNIT) Oral Tablet (cholecalciferol (VIT D3))Indications:Senil e osteoporosis,Vitamin D insufficiency one pill each day--st 05/15/2023 1 Tablet 0 05/15/2023 Active Calcium Carb-Cholecalciferol 500-10 MG-MCG Oral Tablet (SM Calcium 500/Vitamin D3) Take 1 Tablet by mouth. 0 Active Levothyroxine Sodium 175 MCG Oral Tablet (Levoxyl)Indications: Acquired hypothyroidism TAKE 1 TABLET BY MOUTH ONCE DAILY IN THE MORNING SIX DAYS PER WEEK, AT LEAST 30 MINUTES BEFORE BREAKFAST OR OTHER MEDICATIONS SINCE 11/02/22 90 Tablet 1 08/04/2023 Active Gabapentin 100 MG Oral Capsule (Neurontin) Take 1 Capsule by mouth at bedtime. --dec DrRoy 08/31 0 08/15/2023 Active Ondansetron HCl 4 MG Oral TabletIndications:Edmond sea,Abdominal bloating,Abdominal pain, epigastric,Hiatal hernia Take 1 Tablet by mouth every 8 hours as needed for Nausea. 30 Tablet 0 08/15/2023 Active Omeprazole 20 MG Oral Capsule Delayed Release (PriLOSEC)Indications :Nausea,Hiatal hernia Take 1 Capsule by mouth in the morning and 1 Capsule before bedtime. Inc 08/28/2023. 1 Capsule 0 08/27/2023 Active Torsemide 10 MG Oral Tablet (Demadex)Indications: Heart failure, diastolic, due to HTN (HCC) Take 1 Tablet by mouth in the morning. 90 Tablet 3 10/30/2023 Active oxyCODONE-Acetaminoph en 5-325 MG Oral Tablet (Percocet)Indications :Spinal stenosis of lumbar region without neurogenic claudication,Arthralg ia of both knees,Primary osteoarthritis involving multiple joints Take 0.25 Tablets by mouth in the morning and 0.25 Tablets in the evening. -takes 1/4 tab In day and 1/4 tab at 9 pm for severe RLS. 45 Tablet 0 11/21/2023 Active documented as of this encounter (statuses as of 11/23/2023) Active Problems Problem Noted Date Diagnosed Date [...] 04/12/22--mod DAGMAR with noc hypoxia>to start cpap -12 cwp>05/30 awaiting from [facility] Paroxysmal SVT (supraventricular tachycardia) Type 2 diabetes [...] as of this encounter (statuses as of 11/23/2023) Resolved Problems Problem Noted Date Diagnosed Date [...] as of this encounter (statuses as of 11/23/2023) Immunizations Name Administration Dates Next Due COVID-19 [...] on file documented as of this encounter Progress Notes * Thaddeus Gonsalez PA-C - 11/23/2023 1:39 PM EST Images from the original note were not included. History of Present Illness Holly Juarez is a 73 year old female that presents for Abdominal Pain Started this morning with lower abdominal pain, nausea, headache. No fever. Normal BM earlier today - no diarrhea, blood or mucus in stool. 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 Patient reports she has been sanitizing regularly at home, washing hands; still worried these symptoms may be the start of C.diff. No problems like this in the past. Last colonoscopy reviewed, +diverticulosis; never diverticulitis. Cramping/pain somewhat improved from this morning. Denies urinary symptoms. Physical Exam There were no vitals filed for this visit. Physical Exam Constitutional: Appearance: She is well-developed. HENT: Head: Normocephalic and atraumatic. Pulmonary: Effort: Pulmonary effort is normal. Neurological: Mental Status: She is alert and oriented to person, place, and time. Assessment and Plan Abdominal cramping - CLOSTRIDIUM DIFFICILE, PCR; Future Advised collection of stool culture if multiple episodes of watery diarrhea develop. If otherwise worsening abdominal pain, patient should be evaluated in the office. To ER if acutely worse. Continue proper household sanitation precautions. Wrap-Up Follow Up: Return if symptoms worsen or fail to improve. Time: I spent a total of 20-29 minutes (exact time 20 mins) on the date of service in preparation, delivery, and documentation of the care provided to Holly Juarez excluding any time spent in the performance of separately billed services. Telemedicine: Patient location: HOME. I was in a hospital or clinic location. After connecting through televideo,patient was verified with two unique identifiers. Patient (or authorized legal players club representative) was then informed that this was a Telemedicine visit and being conducted confidentially over secure lines. Methods to assure confidentiality were taken. Patient acknowledged consent and understanding of pr ivacy and security of the Telemedicine visit. The patient agreed to participate. documented in this encounter Plan of Treatment Upcoming Encounters Date Type Department Care Team (Late st Contact Info) Description 11/23/2023 2:40 PM EST Laboratory Laboratory [facility] Arcos [address] [place] [phone] [place], [place] [facility] [address] [place] [address] 12/25/2023 11:20 AM EDT Office Visit General Internal Medicine [facility] Arcos [address] [place] [address] Jodi Garcia MD [address] [place] [address] 01/02/2024 10:00 AM EDT Office Visit Sleep Disorders Ctr [facility] [address] [place] [phone] Tiera Salgado DO [address] [place] [address] 02/05/2024 11:00 AM EDT Office Visit Rheumatology [facility] [address] [facility] [place] [address] Dario Neely MD [facility] [place] [address] 02/19/2024 10:30 AM EDT Office Visit Cardiology, [facility] [address] [facility] [place] [address] Domi Barragan CRNP [address] [facility] [place] [address] Scheduled Orders Name Type Priority Associated Diagnoses Orde r Schedule CLOSTRIDIUM DIFFICILE, PCR Lab Routine Abdominal cramping Expected: 11/23/2023 (Approximate), Expires: 11/22/2024 Scheduled Procedures Name Priority Associated Diagnoses Date/Ti [...] D LEVEL ONCE IN A LIFETIME-USE SMARTSET# [id number] Completed 05/10/2023, 02/07/2023, 11/02/2022, Additional history exists [...] as of this encounter Visit Diagnoses Diagnosis Abdominal cramping- Primary Abdominal pain, unspecified site documented in this encounter Advance Directives Latest Code Status on File Code Status Date Activated Date Inactivated Comments Full Code 08/03/2013 5:43 AM 08/04/2013 3:12 PM Thi s order reflects the patients wishes and were consensually agreed upon. Question Answer Comments Discussion of Advance Directives occurred with: Not Discussed Care Teams Control Room Agent Relationship Specialty Start Date End Date Jodi Garcia MD [address] [place] [address] PCP - General Internal Medicine 06/15/21 documented as of this encounter
--- OUTSIDE RECORDS SUMMARY | 2023-11-24 13:37 | External Medical Summary | Summary of Care ---
Author Name Unknown Organization [facility] Address [address] [facility] [place] [address] Phone [phone] Care Team Providers Care Home Health Care Physician Name Role Phone Jodi Garcia MD Primary Care Provider [phone] Reason for Visit * Reason Comments Outpatient Testing Encounter Details Date Type Department Care Team (Late st Contact Info) Description 11/23/2023 2:40 PM EST Laboratory Laboratory [facility] [place] [address] [place] [phone] [facility] [address] [place] [address] Arrived Allergies Active Allergy Reactions Criticality Noted Date [...] 1 Capsule by mouth at bedtime. --dec Roy 08/31 0 08/15/2023 Active Ondansetron HCl 4 [...] Pap smear for cervical cancer screening 08/10/20 Overview: Neg 01/2018 Moderate obstructive sleep apnea 08/02/2021 Overview: 04/12/22--mod DAGMAR with noc hypoxia>to start cpap -12 cwp>05/[facility] Paroxysmal SVT (supraventricular tachycardia) Type 2 diabetes [...] on file documented as of this encounter Plan of Treatment Upcoming Encounters Date Type Department Care Team (Late st Contact Info) Description 12/25/2023 11:20 AM EDT Office Visit General Internal Medicine [facility] [place] [address] [place] [address] Jodi Garcia MD [address] [place] [address] 01/02/2024 10:00 AM EDT Office Visit [facility] [place] [address] [place] [phone] Tiera Salgado, [address] [place] [address] 02/05/2024 11:00 AM EDT Office Visit Rheumatology [facility] [address] [facility] [place] [address] Dario Neely MD [address] [facility] [place] [address] 02/19/2024 10:30 AM EDT Office Visit Cardiology, [facility] [address] [place] [address] Domi Barragan CRNP [address] [place] [address] Scheduled Procedures Name Priority Associated Diagnoses Date/Ti [...] D LEVEL ONCE IN A LIFETIME-USE SMARTSET# [id number] Completed 05/10/2023, 02/07/2023, 11/02/2022, Additional history exists Influenza Vaccine (FLU shot) Completed , 09/25/2022, 09/19/2022, Additional history exists GARDASIL-HPV IMMUNIZATION SERIES Aged Out No longer eligible based on patient's age to complete this topic MENINGOCOCCAL (MENACTRA/MENVEO) Aged Out No longer eligible based on patient's age to complete this topic documented as of this encounter Medical Devices Not on filedocumented as of this encounter Advance Directives Latest Code Status on File Code Status Date Activated Date Inactivated Comments Full Code 08/03/2013 5:43 AM 08/04/2013 3:12 PM Thi s order reflects the patients wishes and were consensually agreed upon. Question Answer Comments Discussion of Advance Directives occurred with: Not Discussed Care Teams Home Health Care Physician Relationship Specialty Start Date End Date Jodi Garcia MD [address] [place] [address] PCP - General Internal Medicine 06/15/21 documented as of this encounter
[2023-11-24] MEDS: FUROSEMIDE INJ 20 MG/2 ML VIAL IV ONE (14:23)
[2023-11-24] MEDS: guaiFENesin 200 MG TAB PO SCH (14:23)
[2023-11-24] MEDS: PRAMIPEXOLE DIHYDROCHLO 0.5 MG TAB PO SCH ×2 (16:37→19:54)
[2023-11-24] MEDS: oxyCODONE HCL IR 5 MG TAB (IMMEDIATE RELEASE) PO PRN (18:40)
[2023-11-24] MEDS: MoRPHine SULFATE 2 MG/ML CARP IV PRN (19:36)
[2023-11-24] MEDS: GABAPENTIN 100 MG CAP PO SCH (19:55)
[2023-11-25 00:29] VITALS: RESP 16
[2023-11-25 05:30] VITALS: O2SAT 93
[2023-11-25 07:41] VITALS: BP 148/82; PULSE 81; TEMP 98.2
[2023-11-25 07:42] LABS: Hematocrit (blood only) 38.5 % (37.0-47.0); Hemoglobin 12.3 g/dl (12.0-16.0); Mean Corpuscular Hemoglobin 28.9 pg (25.0-34.0); Mean Corpuscular Hgb Conc 31.9 g/dL (32.0-36.0); Mean Corpuscular Volume 90.4 fL (80.0-100.0); Mean Platelet Volume 9.7 fL (9.4-12.4); Platelet Count 213 K/uL (130-400); RDW Coefficient of Variation 13.2 % (11.5-14.5); RDW Standard Deviation 43.7 fL (36.4-46.3); Red Blood Count 4.26 M/uL (4.20-5.40); White Blood Count 9.89 K/ul (4.8-10.8)
[2023-11-25 07:53] LABS: BUN Creatinine Ratio 26.1 (10-20); Calcium 8.9 mg/dl (8.6-10.3); Creatinine Clr Calc Pharmacy 84.8 ml/min; Est GFR (African American) 98.7 ml/min; Est GFR (Non-African American) 85.2 ml/min; Phosphorus 2.8 mg/dl (2.5-4.9); Potassium 3.8 mmol/L (3.5-5.1)
--- NOTE | 2023-11-25 08:27 | Hospitalist Progress Note ---
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 Patient having abdomen pains yesterday and today. Severe in nature. In the ER waiting she had episode of vomiting. Was perspiring when the pain was severe. CT scan showed low-grade small bowel obstruction centered on infraumbilical anterior abdominal wall hernia. Surgery reduced the hernia. After hernia was reduced the pain almost resolved. Currently no nausea. Had normal bowel movement in the morning. Afebrile. Denies chest pain or shortness of breath. Currently no headache. Vision is okay. No runny nose or sore throat. No cough. Resting comfortably. Hemodynamically stable. Low-grade small bowel obstruction Infraumbilical anterior abdominal wall hernia Hernia was reduced by surgery Abdominal pain improved after hernia was reduced Surgery consulted and pt underwent ventral hernia repair surgery yesterday (11/24 2023 w/ Dr. Isabel) Currently doing well, no significant abd. pain, tolerating diet Discharge instructions provided by surgery. 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 Currently on anastrozole . 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 as per records DVT prophylaxis SCDs Disposition Medical floor, plan to [place] home Full code Admission and Anticipated Discharge Date Admission Date: November 24, 2023 Subjective Pt seen in follow up of ventral hernia repair Pt seen after surgery, developed shortness of breath. Seen at the bedside, and was able to cough up a lot of mucous which improved her shortness of breath significantly This morning she is sitting up in the chair, in no acute distress Denies any abdominal pain Denies any shortness of breath or chest pain Says she had something to eat and drink, but does not have much appetite, no nausea vomiting Review of Systems Review of Systems: All systems reviewed & are unremarkable except as noted in Subjective Physical Exam Physical Exam: General- morbidly obese F in NAD Head- atraumatic Eyes- PERRL. Neck- supple, no JVD. Lungs- clear to auscultation no wheezing or crackles. Heart- regular rhythm; no murmur, no gallop. Abdomen- soft, nontender, no distension, + obese Extremities- no pretibial edema, no erythema seen Neuro- alert, oriented ; PERRL,; no facial palsy; no dysarthria; moves extremities. Skin- warm & dry Results & Data Results & Data Vital Signs (Past 12 Hours) Vital Signs Temp Pulse Resp BP BP Pulse Ox O2 Del Method 11/25/23 07:38 36.8 C 81 16 148/82 H 93 Room Air 11/25/23 05:28 36.6 C 82 16 147/88 H 93 Room Air 11/25/23 00:25 37.2 C 90 16 167/90 H 92 Room Air 11/24/23 21:42 Room Air 11/24/23 21:01 144/72 H Laboratory Results 11/25/23 Range/Units 07:00 WBC 9.89 (4.8-10.8) K/ul RBC 4.26 (4.20-5.40) M/uL Hgb 12.3 (12.0-16.0) g/dl Hct 38.5 (37.0-47.0) % MCV 90.4 (80.0-100.0) fL MCH 28.9 (25.0-34.0) pg MCHC 31.9 L (32.0-36.0) g/dL RDW Std Deviation 43.7 (36.4-46.3) fL RDW Coeff of Steven 13.2 (11.5-14.5) % Plt Count 213 (130-400) K/uL MPV 9.7 (9.4-12.4) fL Sodium 136 (136-145) mmol/L Potassium 3.8 (3.5-5.1) mmol/L Chloride 103 (98-107) mmol/L Carbon Dioxide 26 (21-32) mmol/L Anion Gap 7 (3-11) BUN 18 (6-23) mg/dl Creatinine 0.69 (0.6-1.2) mg/dl Est Cr Clr Drug Dosing 84.8 ml/min Est GFR ( Amer) 98.7 ml/min Est GFR (Non-Af Amer) 85.2 ml/min BUN/Creatinine Ratio 26.1 H (10-20) Glucose 141 H (70-99(Fasting)) mg/dl Calcium 8.9 (8.6-10.3) mg/dl Phosphorus 2.8 (2.5-4.9) mg/dl Magnesium 2.0 (1.7-2.4) mg/dl Medications Administered Current Inpatient Medications Acetaminophen (Acetaminophen 325 Mg Tab) 650 mg PO Q4H PRN PRN Reason: pain/fever Stop: 12/24/23 04:14 Anastrozole (Anastrozole 1 Mg Tab) 1 mg PO DAILY [facility] Stop: 12/24/23 08:59 Last Admin: 11/24/23 16:36 Dose: 1 mg Carvedilol (Carvedilol 12.5 Mg Tab) 12.5 mg PO BID [facility] Stop: 12/24/23 08:59 Last Admin: 11/24/23 19:53 Dose: 12.5 mg Gabapentin (Gabapentin 100 Mg Cap) 100 mg PO HS [facility] Stop: 12/24/23 20:59 Last Admin: 11/24/23 19:55 Dose: 100 mg Guaifenesin (Guaifenesin 200 Mg Tab) 200 mg PO Q4H [facility] Stop: 12/24/23 13:14 Last Admin: 11/25/23 05:33 Dose: 200 mg Hydralazine HCl (Hydralazine Hcl 20 Mg/Ml Vial) 5 mg IV Q6H PRN PRN Reason: Hypertension Stop: 12/24/23 04:14 Levothyroxine Sodium (Levothyroxine Sodium 175 Mcg Tablet) 175 mcg PO [id number] [facility] Stop: 12/27/23 06:29 Morphine Sulfate (Morphine Sulfate 2 Mg/Ml Carp) 2 mg IV Q2H PRN PRN Reason: Severe Pain (Scale 7, 8, 9,10) Stop: 12/08/23 11:29 Last Admin: 11/24/23 19:36 Dose: 2 mg Ondansetron HCl (Ondansetron Inj 2 Mg/Ml 2 Ml Vial) 4 mg IV Q6H PRN PRN Reason: Nausea Stop: 12/24/23 04:14 Last Admin: 11/24/23 06:23 Dose: 4 mg Oxycodone HCl (Oxycodone Hcl Ir 5 Mg Tab (Immediate Release)) 5 mg PO Q4H PRN PRN Reason: Moderate Pain (Scale 4, 5, 6) Stop: 12/08/23 11:29 Oxycodone HCl (Oxycodone Hcl Ir 5 Mg Tab (Immediate Release)) 10 mg PO Q4H PRN PRN Reason: Pain 7,8,9,10 Stop: 12/08/23 11:29 Last Admin: 11/25/23 05:32 Dose: 10 mg Pantoprazole Sodium (Pantoprazole 40 Mg Tab) 40 mg PO DAILY [facility] Stop: 12/24/23 08:59 Last Admin: 11/24/23 08:27 Dose: 40 mg Pramipexole Dihydrochloride (Pramipexole Dihydrochlo 0.5 Mg Tab) 0.5 mg PO DAILY@1600 [facility] Stop: 12/24/23 15:59 Last Admin: 11/24/23 16:37 Dose: 0.5 mg Pramipexole Dihydrochloride (Pramipexole Dihydrochlo 0.5 Mg Tab) 0.25 mg PO DAILY@2100 [facility] Stop: 12/24/23 20:59 Last Admin: 11/24/23 19:54 Dose: 0.25 mg Torsemide (Torsemide 10 Mg Tab) 10 mg PO DAILY [facility] Stop: 12/25/23 08:59
[2023-11-25] MEDS: TORSEMIDE 10 MG TAB PO SCH (09:43)
--- NOTE | 2023-11-25 10:07 | Discharge Summary ---
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 Patient having abdomen pains yesterday and today. Severe in nature. In the ER waiting she had episode of vomiting. Was perspiring when the pain was severe. CT scan showed low-grade small bowel obstruction centered on infraumbilical anterior abdominal wall hernia. Surgery reduced the hernia. After hernia was reduced the pain almost resolved. Currently no nausea. Had normal bowel movement in the morning. Afebrile. Denies chest pain or shortness of breath. Currently no headache. Vision is okay. No runny nose or sore throat. No cough. Resting comfortably. Hemodynamically stable. Past medical history. As mentioned above Past surgical history. Bilateral knee arthroplasty. Bilateral shoulder arthroscopy. Colonoscopy. Colonoscopy with biopsy. Left knee arthroscopy. Nasal surgery. Social history. No smoking. Alcohol 3 times a week. No drug use. Family history. Father had arthritis. Mother had endocrine disorder. Aunt had breast cancer. Sister has osteoporosis. Admission Exam Per Admitting Provider General- Not in distress Head- atraumatic Eyes- PERRL. ENT- oropharynx clear Neck- supple, no JVD. Lungs- clear to auscultation no wheezing or crackles. Heart- regular rhythm; no murmur, no gallop. Abdomen- sluggish bowel sounds, soft, nontender, no distension. Extremities- no pretibial edema, no erythema seen, Neuro- alert, oriented ; PERRL,; no facial palsy; no dysarthria; moves extremities. Skin- warm & dry Principal Diagnosis open ventral hernia repair Discharge Exam General- morbidly obese F in NAD Head- atraumatic Eyes- PERRL. Neck- supple, no JVD. Lungs- clear to auscultation no wheezing or crackles. Heart- regular rhythm; no murmur, no gallop. Abdomen- soft, nontender, no distension, + obese Extremities- no pretibial edema, no erythema seen Neuro- alert, oriented ; PERRL,; no facial palsy; no dysarthria; moves extremities. Skin- warm & dry Discharge Data Allergies Allergy/AdvReac Type Severity Reaction Status Date / Time lisinopril Allergy Severe THROAT Verified 10/27/23 09:04 SWELLING/SOB sulfamethoxazole Allergy Mild Rash Verified 10/27/23 09:04 [From Bactrim] trimethoprim [From Bactrim] Allergy Mild Rash Verified 10/27/23 09:04 latex Allergy Unknown Rash Verified 10/27/23 09:04 Penicillins Allergy Unknown SHORTNESS Verified 10/27/23 09:04 OF BREATH empagliflozin AdvReac Intermediate Abdominal Verified 10/27/23 09:04 [From Jardiance] Pain Consultations 11/23/23 23:16 ED Decision to Admit Stat 11/24/23 00:07 Consult General Surgery Stat Procedures Performed Operation Date: 11/24/23 08:55 Actual Procedures p Open Ventral Hernia Repair(Not Applicable) - Kahlil Isabel DO Ordered Studies 11/23/23 22:07 CT Abd and Pelvis [CT abd pelvis IV con only] Stat FINDINGS: Lung bases: Unremarkable. No mass. No consolidation. Mediastinum: Moderate size esophageal hiatal hernia. ABDOMEN: Liver: Unremarkable. No mass. Gallbladder and bile ducts: Unremarkable. No calcified stones. No ductal dilation. Pancreas: Unremarkable. No mass. No ductal dilation. Spleen: Unremarkable. No splenomegaly. Adrenals: Unremarkable. No mass. Kidneys and ureters: Unremarkable. No solid mass. No hydronephrosis. Stomach and bowel: Low-grade small bowel obstruction centered on a infraumbilical anterior abdominal wall hernia. No mucosal thickening. PELVIS: Appendix: No findings to suggest acute appendicitis. Bladder: Unremarkable. No mass. Reproductive: Unremarkable as visualized. ABDOMEN and PELVIS: Intraperitoneal space: Unremarkable. No free air. No significant fluid collection. Bones/joints: No acute fracture. No dislocation. Soft tissues: See above. Vasculature: Unremarkable. No abdominal aortic aneurysm. Lymph nodes: Unremarkable. No enlarged lymph nodes. IMPRESSION: Low-grade small bowel obstruction centered on infraumbilical anterior abdominal wall hernia Hospital Course (1) Small bowel obstruction: 73 yo F with past med history significant for type 2 diabetes, hypothyroidism, obstructive sleep apnea not using CPAP, chronic diastolic CHF, paroxysmal supraventricular tachycardia, hypertension, morbid obesity, urge incontinence of urine, restless leg syndrome, migraines, neuropathy, history of iron deficiency anemia, history of 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 Patient having abdomen pains yesterday and today. Severe in nature. In the ER waiting she had episode of vomiting. Was perspiring when the pain was severe. CT scan showed low-grade small bowel obstruction centered on infraumbilical anterior abdominal wall hernia. Surgery reduced the hernia. After hernia was reduced the pain almost resolved. Currently no nausea. Had normal bowel movement in the morning. Afebrile. Denies chest pain or shortness of breath. Currently no headache. Vision is okay. No runny nose or sore throat. No cough. Resting comfortably. Hemodynamically stable. Low-grade small bowel obstruction Infraumbilical anterior abdominal wall hernia Hernia was reduced by surgery Abdominal pain improved after hernia was reduced Surgery consulted and pt underwent ventral hernia repair surgery yesterday (11/24 2023 w/ Dr. Isabel) Currently doing well, no significant abd. pain, tolerating diet Discharge instructions provided by surgery. 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 Currently on anastrozole . 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 as per records Total Time Total Time Spent Total Time Spent (In Minutes): 40 Discharge Plan Discharge Items Patient Disposition: Home - Self-Care Reason For Visit: ABDOMINAL PAIN Discharge Diagnosis: open ventral hernia repair Condition on Discharge: Good Activity: Per Instructions section Lifting: No more than 10 pounds Bathing Comment: may shower; no soaking in tubs/pools x 2 weeks Exercise/Sports: Wait until after follow-up appointment Driving/Machine Use: no driving while on narcotics for pain, wait at least 1 week Non-emergency contact: Primary Care Provider and Surgeon Call non-emergency contact if: you have any medication questions, your pain is worsening, you have a fever, your temperature is above 101.5, your wound has increased redness, your wound has increased drainage and your wound pain has increased Follow-up/Referrals: Kahlil Isabel, [Surgeon] - (please call to schedule follow up in clinic within 2 weeks ) Jodi Garcia MD [Primary Care Provider] - Diet: Regular Addtl Attending Provider Instructions: You have skin glue over your incisions called dermabond. you may shower with this on. It will tend to dissolve and fall off within a couple weeks. Do not pick at the skin glue You have been prescribed some extra Percocet to get you through your post surgical pain. Please do not take any more than prescribed to you. Then you may return to your regularly scheduled dosing as previously prescribed. Pending Studies at Discharge: Yes Studies:: final urine cultx Stand-Alone Forms: My [facility] [employer], Smoking Cessation Medications and DC Order Prescriptions: New oxycodone-acetaminophen [Percocet] 5-325 mg tablet 1 - 2 tab PO .q4-6h PRN (Reason: pain, for initial therapy, max 6 tabs per day) Qty: 15 0RF Continued levothyroxine 175 mcg tablet 175 mcg PO UD Rx Instructions: daily before breakfast 6 times a week. anastrozole 1 mg tablet 1 mg PO DAILY carvedilol 12.5 mg tablet 12.5 mg PO BID torsemide 10 mg tablet 10 mg PO DAILY pramipexole 0.5 mg tablet 0.5 mg PO UD Rx Instructions: 1 tab at 4pm and half tab at 9pm. omeprazole 20 mg capsule,delayed release(DR/EC) 20 mg PO DAILY gabapentin 100 mg capsule 100 mg PO HS Held oxycodone-acetaminophen 5-325 mg tablet 0.25 tab PO BID Hold Instructions: Resume on 11/27/23. Admission Data Admit Date/Time: 11/24/23 01:00 Attending Provider: Arsenio Mccracken Admit Provider: Danny Montero Primary Care Provider: Jodi Garcia Other Providers: Danny Montero; Kahlil Isabel
[2023-11-27] MEDS ORDERED: LEVOTHYROXINE SODIUM 175 MCG TABLET PO SCH (06:30)
--- NOTE | 2023-11-27 07:53 | Communication Note ---
Date of Service: November 27, 2023 By CMS guidelines, a determination that the admission or continued stay is not medically necessary has been made by a member of the UR committee and yoselin maher for this hospital stay, therefore a Code 44 will be completed and the Inpatient admission will be changed to outpatient.
== END 2023-11-25 13:38 | disposition home or self-care (01) ==
LOC: ED 19:46 → 3W 11-24 01:00 → INTOOBSV 11-24 01:00 → 3W 11-24 03:37

== ENCOUNTER 2025-04-03 06:55 | Inpatient (IN) ==
--- NOTE | 2025-03-25 13:09 | Anesthesiology Consultation ---
Date of Service March 25, 2025 Assessment & Plan (1) Encounter for pre-operative examination: Chart Review Chart Review: Acceptable Risk for Surgery and Patient NOT seen in Pre Admission Testing - Check BSG AM DOS -Infectious Disease screening: Per PAT nursing assessment on 03/25/25. No known infectious disease contacts in past 10 days or current infectious disease symptoms. No recent travel outside the country. Seen by cardiology 03/05/2025 = Seen for routine cardiology follow-up. Chronic heart failure with preserved EFappears euvolemic on exam. Weight stable. Continue current medications. Chronic dyspnea and fatiguenegative nuclear stress test 2020. Stable from cardiac standpoint. Denies exertional angina or nitroglycerin use. EKG shows no ischemic changes. Paroxysmal SVTstable and asymptomatic with no recurrent palpitations. Continue carvedilol. HypertensionBP well-controlled. Dyslipidemiaon statin. Follow-up in 1 year. Open Ventral Hernia Repair 11/24/23= Done under [place] With Grade 1 view with MAC #3. ETT 37.0. DVL x 1 atraumatic History Surgery Operation Date: 04/03/25 07:15 Proposed Procedures p Laparoscopic Repair Recurrent Ventral Hernia with Mesh - Kahlil Isabel, DO Height/Weight Height: 5 ft 4 in Weight: 104.326 kg Allergies Allergy/AdvReac Type Severity Reaction Status Date / Time lisinopril Allergy Severe Throat Verified 03/25/25 11:18 Swelling, Shortness of Breath Penicillins Allergy Severe Shortness Verified 03/25/25 11:18 of Breath latex Allergy Intermediate Rash Verified 03/25/25 11:18 sulfamethoxazole Allergy Mild Rash Verified 03/25/25 11:18 [From Bactrim] trimethoprim [From Bactrim] Allergy Mild Rash Verified 03/25/25 11:18 atorvastatin AdvReac Intermediate Jittery, Verified 03/25/25 11:18 Unable to Sleep empagliflozin AdvReac Intermediate Abdominal Verified 03/25/25 11:18 [From Jardiance] Pain jardiance AdvReac Intermediate Abdominal Uncoded 03/25/25 11:18 Pain Medications Home Medications Medication Instructions Recorded Confirmed Last Taken anastrozole 1 mg tablet 1 mg PO DAILY 11/24/23 03/25/25 05/05/24 carvedilol 12.5 mg tablet 12.5 mg PO BID 11/24/23 03/25/25 05/05/24 levothyroxine 175 mcg tablet 175 mcg PO UD 11/24/23 03/25/25 05/04/24 torsemide 10 mg tablet 10 mg PO DAILY 11/24/23 03/25/25 05/05/24 oxycodone-acetaminophen 5 mg-325 See Rx Instructions .Route .COMPLEX 05/05/24 03/25/25 05/04/24 mg tablet pramipexole 0.5 mg tablet 0.5 mg PO BID 30 days #60 tabs 05/28/24 03/25/25 Unknown omeprazole 20 mg capsule,delayed 20 mg PO DAILY #90 caps 12/03/24 03/25/25 Unknown release lactobacillus combination no.9 4 4,000 mmu cells PO DAILY 02/26/25 03/25/25 Unknown billion cell capsule (Adult 50 Plus Probiotic) cholecalciferol (vitamin D3) 50 50 mcg PO DAILY 03/25/25 03/25/25 Unknown mcg (2,000 unit) capsule (Vitamin D3) gabapentin 100 mg capsule 100 mg PO HS 03/25/25 03/25/25 Unknown (Neurontin) metformin 500 mg tablet 1,000 mg PO QPM 03/25/25 03/25/25 Unknown Past Medical History Medical History (Updated 03/25/25 @ 13:21 by KELLEN ChinchillaC) Basal cell carcinoma of face Forehead Breast cancer, right Biopsy on 07/06/21; s/p lumpectomy and XRT CHF (congestive heart failure) [facility] - Chronic HFpEF EF 55-59% per 2020 ECHO DDD (degenerative disc disease) Fatigue Chronic per cardio records -negative nuclear stress test 2019 Gastroesophageal reflux disease Hiatal hernia History of anesthesia problem - After procedure 11/2023 - had difficulty breathing and catching breath. "It wasn't when I was in recovery, it was when I was in my room." - Per review of [facility] progress notes/discharge summary during 11/2023 admission s/p ventral hernia repair- no mention of breathing issues; patient does have DAGMAR- non compliant with CPAP - "Years ago when I had a D&C - I had a hard time coming out of it, don't remember ride home from the hospital" History of COVID-19 11/2021, home test, not hosp; "bad" congestion, chills, fatigue> resolved History of Mohs micrographic surgery for skin cancer BCC forehead History of paroxysmal supraventricular tachycardia Per cardio records History of small bowel obstruction 11/2023 - s/p ventral hernia repair Hypertension Hypothyroidism Lumbar radiculopathy Lumbar spinal stenosis Migraines Peripheral neuropathy Bilateral Hands & Feet Prediabetes Oral Restless leg syndrome SCC (squamous cell carcinoma) Per derm records Sleep apnea CPAP; "hasn't used in 2 weeks due to tingling in her cheek from her mask/magnet, waiting for special pads to arrive" Past Family History Family History Father , 90yo Laryngeal cancer Restless leg syndrome Sister Restless leg syndrome Brother Restless leg syndrome Hypertension Grandmother (Maternal) Cardiac disorder Grandmother (Paternal) Cardiac disorder Aunt Breast cancer maternal Mother , 90yo Alzheimer disease Unknown Colorectal cancer maternal cousin 50s, paternal cousin 50s. Brother Depression Restless leg syndrome Brother No problems noted. Brother Aplastic anemia Daughter No problems noted. Daughter Fainting Frequently but unknown cause Other No significant family history Denies family history of Ovarian cancer Past Surgical History Surgical History H/O foot surgery Bilateral H/O inguinal hernia repair Open Ventral Hernia Repair- Kahlil Isabel, DO 22 H/O shoulder surgery 2014 - Bilateral arthroscopic History of arthroplasty of left knee "09/21/16 Dr. Villavicencio" History of arthroplasty of right knee "2013 Dr. Villavicencio" History of carpal tunnel surgery of left wrist History of surgery "Turbinate resection" Hx of colonoscopy S/P dilation and curettage S/P left knee arthroscopy "2006" S/P tonsillectomy and adenoidectomy Status post right breast lumpectomy 08/17/21 Dr. Leong Social History Smoking Status: Never smoker Do You Dip or Chew Tobacco: No Hx Alcohol Use: No Alcohol type: beer, wine and hard liquor alcohol intake frequency: a few times a month Hx Substance Use: No substance use type: does not use Lab Results Anesthesia Preop Results Results Anesthesia Widget: WBC 5.67 K/ul (4.8-10.8) 03/21/25 Hgb 12.0 g/dl (12.0-16.0) 03/21/25 Hct 36.7 % (37.0-47.0) L 03/21/25 Plt 258 K/uL (130-400) 03/21/25 Na 137 mmol/L (136-145) 03/21/25 K 4.1 mmol/L (3.5-5.1) 03/21/25 Cl 101 mmol/L (98-107) 03/21/25 CO2 29 mmol/L (21-32) 03/21/25 BUN 24 mg/dl (6-23) H 03/21/25 Creat 0.76 mg/dl (0.6-1.2) 03/21/25 Glucose Level 94 mg/dl (70-99(Fasting)) 03/21/25 Testing Electrocardiogram Date: 03/21/25 Normal sinus rhythm at 65 bpm Chest X-Ray Date: 05/05/24 FINDINGS: Cardiac silhouette is enlarged. Large hiatal hernia. Chronic right sukhdev diaphragmatic elevation. Mild left basilar atelectasis. No pneumothorax or pleural effusion. Bones appear intact. IMPRESSION: 1. Cardiomegaly without acute process. 2. Large hiatal hernia. Echocardiogram Date: 07/12/21 LVEF 55-59% (normal) Borderline concentric LVH LV wall motion is normal Left atrium moderately enlarged Grade 1 DD Mild MR. Mild TR No evidence of pulmonary hypertension Compared to prior study 06/28/2020no significant changes found Stress Test Date: 07/22/21 Type: nuclear Gated SPECT imaging reveals normal myocardial thickening and wall motion LVEF was calculated >65% Lexiscan nuclear cardiac stress test negative for ischemia Other Testing Chest CTA 05/05/24= No pulmonary emboli identified. No pleural effusion or airspace consolidation to suggest pneumonia. Large hiatal hernia.
--- NOTE | 2025-04-03 07:33 | History & Physical Report ---
Date of Service April 03, 2025 Assessment & Plan (1) Recurrent ventral hernia with incarceration: Plan: Rediscussed options and risks. Questions answered. We will proceed today with laparoscopic repair of a recurrent ventral hernia with mesh. (2) Morbid obesity: History of Present Illness Primary Care Provider: Jodi Garcia MD pt here for repair of a recurrent periumbilical ventral hernia. There has been no major changes to her health status since I seen her last in the office. Allergies Allergy/AdvReac Type Severity Reaction Status Date / Time lisinopril Allergy Severe Throat Verified 04/03/25 07:23 Swelling, Shortness of Breath Penicillins Allergy Severe Shortness Verified 04/03/25 07:23 of Breath latex Allergy Intermediate Rash Verified 04/03/25 07:23 sulfamethoxazole Allergy Mild Rash Verified 04/03/25 07:23 [From Bactrim] trimethoprim [From Bactrim] Allergy Mild Rash Verified 04/03/25 07:23 atorvastatin AdvReac Intermediate Jittery, Verified 04/03/25 07:23 Unable to Sleep empagliflozin AdvReac Intermediate Abdominal Verified 04/03/25 07:23 [From Jardiance] Pain jardiance AdvReac Intermediate Abdominal Uncoded 04/03/25 07:23 Pain Home Medications Medication Instructions Recorded Confirmed Type anastrozole 1 mg tablet 1 mg PO DAILY 11/24/23 04/03/25 History carvedilol 12.5 mg tablet 12.5 mg PO BID 11/24/23 04/03/25 History levothyroxine 175 mcg tablet 175 mcg PO UD 11/24/23 04/03/25 History torsemide 10 mg tablet 10 mg PO DAILY 11/24/23 04/03/25 History oxycodone-acetaminophen 5 mg-325 See Rx Instructions .Route .COMPLEX 05/05/24 04/03/25 History mg tablet omeprazole 20 mg capsule,delayed 20 mg PO DAILY #90 caps 12/03/24 04/03/25 Rx release lactobacillus combination no.9 4 4,000 mmu cells PO DAILY 02/26/25 04/03/25 History billion cell capsule (Adult 50 Plus Probiotic) cholecalciferol (vitamin D3) 50 50 mcg PO DAILY 03/25/25 04/03/25 History mcg (2,000 unit) capsule (Vitamin D3) gabapentin 100 mg capsule 100 mg PO HS 03/25/25 04/03/25 History (Neurontin) metformin 500 mg tablet 1,000 mg PO QPM 03/25/25 04/03/25 History pramipexole 0.5 mg tablet 0.5 mg PO BID 30 days #60 tabs 03/26/25 04/03/25 Rx rosuvastatin 5 mg tablet (Crestor) 5 mg PO QAM 03/26/25 04/03/25 History magnesium 200 mg tablet 200 mg PO [id number] 04/03/25 04/03/25 History Past Med/Surg History Problem List Morbid obesity Recurrent ventral hernia with incarceration H/O ventral hernia repair (11/24/23) Open Ventral Hernia Repair(Not Applicable) - Kahlil Isabel, DO Ventral hernia Small bowel obstruction (Acute) 2023 Gastritis Anemia Encounter for pre-operative examination SCC (squamous cell carcinoma) Malignant neoplasm of central portion of right breast in female, estrogen receptor positive (Chronic 07/06/21) Carpal tunnel syndrome, left Idiopathic polyneuropathy Restless leg syndrome Migraine hx Recurrent ventral hernia reason for procedure 04/03/25 [facility] Endometrial hyperplasia hx ASCUS favor benign 06/12/07; 05/2006 Medical History History of paroxysmal supraventricular tachycardia Per cardio records Peripheral neuropathy Bilateral Hands & Feet Fatigue Chronic per cardio records -negative nuclear stress test 2019 SCC (squamous cell carcinoma) Per derm records Restless leg syndrome Migraines History of small bowel obstruction 11/2023 - s/p ventral hernia repair Prediabetes Oral History of anesthesia problem - After procedure 11/2023 - had difficulty breathing and catching breath. "It wasn't when I was in recovery, it was when I was in my room." - Per review of [facility] progress notes/discharge summary during 11/2023 admission s/p ventral hernia repair- no mention of breathing issues; patient does have DAGMAR- non compliant with CPAP - "Years ago when I had a D&C - I had a hard time coming out of it, don't remember ride home from the hospital" Sleep apnea CPAP; "hasn't used in 2 weeks due to tingling in her cheek from her mas k/magnet, waiting for special pads to arrive" History of COVID-19 11/2021, home test, not hosp; "bad" congestion, chills, fatigue> resolved History of Mohs micrographic surgery for skin cancer BCC forehead CHF (congestive heart failure) [facility] - Chronic HFpEF EF 55-59% per 2020 ECHO Basal cell carcinoma of face Forehead Gastroesophageal reflux disease Hiatal hernia Breast cancer, right Biopsy on 07/06/21; s/p lumpectomy and XRT DDD (degenerative disc disease) Lumbar radiculopathy Lumbar spinal stenosis Hypothyroidism Hypertension Surgical History H/O inguinal hernia repair Open Ventral Hernia Repair- Kahlil Isabel, DO 11-24-23 Hx of colonoscopy History of carpal tunnel surgery of left wrist History of surgery "Turbinate resection" Status post right breast lumpectomy 08/17/21 Dr. Leong S/P dilation and curettage H/O foot surgery Bilateral H/O shoulder surgery 2014 - Bilateral arthroscopic S/P tonsillectomy and adenoidectomy History of arthroplasty of left knee "09/21/16 Dr. Villavicencio" S/P left knee arthroscopy "2006" History of arthroplasty of right knee "2013 Dr. Villavicencio" Family History Father , 90yo Laryngeal cancer Restless leg syndrome Sister Restless leg syndrome Brother Restless leg syndrome Hypertension Grandmother (Maternal) Cardiac disorder Grandmother (Paternal) Cardiac disorder Aunt Breast cancer maternal Mother , 90yo Alzheimer disease Unknown Colorectal cancer maternal cousin 50s, paternal cousin 50s. Brother Depression Restless leg syndrome Brother No problems noted. Brother Aplastic anemia Daughter No problems noted. 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 Other Information That Helps Us Care for You: No Feels Safe at Home: Yes Safety Concerns: Feels Safe At This Time Diet: regular caffeine: Yes (2 "Yetis" of coffee daily) during the past year weight has: remained stable Assistive Devices: CPAP and Other Assistive Devices Comment: Dental Implants Review of Systems All systems reviewed & are unremarkable except as noted in HPI & below Physical Exam Constitutional: WD/WN, vitals as above no acute distress and not ill appearing Eyes: PERRL, conjunctivae normal, anicteric sclerae EOM intact bilaterally ENMT: external ear and nose normal, oropharynx normal Ears: no hearing impairment Neck: trachea midline, no thyromegaly Respiratory: normal respiratory effort; no respiratory distress and does not use accessory muscles Cardiovascular: Rate/Rhythm: regular rate and regular rhythm Gastrointestinal (Abdomen): Soft nontender. Periumbilical ventral hernia. Unchanged from prior exam Skin: no rashes, warm and dry Psychiatric: Orientation: alert, oriented x 3 and cooperative
[2025-04-03] MEDS: LR 15ML/HR IV SCH (07:58)
[2025-04-03] MEDS ORDERED: ONDANSETRON INJ 2 MG/ML 2 ML VIAL IV PRN ×2 (08:11→09:52)
[2025-04-03] MEDS ORDERED: ATROPINE SULFATE 0.1 MG/ML 10ML SYR IV PRN (08:11)
[2025-04-03] MEDS ORDERED: HYDROmorphone INJ 1 MG/ML SYRINGE IV PRN (08:11)
[2025-04-03] MEDS ORDERED: DEXAMETHASONE SOD INJ 4 MG/ML VIAL ONE (08:29)
[2025-04-03] MEDS ORDERED: PROPOFOL IV EMULSION 10 MG/ML 20 ML VIAL IV ONE (08:29)
[2025-04-03] MEDS ORDERED: ONDANSETRON INJ 2 MG/ML 2 ML VIAL ONE (08:29)
[2025-04-03] MEDS ORDERED: ROCURONIUM BROMIDE 10 MG/ML 5 ML VIAL IV ONE (08:29)
[2025-04-03] MEDS ORDERED: MIDAZOLAM HCL 1 MG/ML 2ML VIAL ONE (08:29)
[2025-04-03] MEDS ORDERED: LIDOCAINE 2% 2 ML VIAL/AMP(20MG/ML) INFIL ONE (08:29)
[2025-04-03] MEDS ORDERED: ACETAMINOPHEN 1000 MG/100 ML IV IV ONE (08:36)
[2025-04-03] MEDS: CLINDAMYCIN/D5W 900 MG/50 ML BAG IV SCH (08:43)
[2025-04-03] MEDS ORDERED: PHENYLEPHRINE 100MCG/ML 5ML SYR ONE (09:00)
[2025-04-03] MEDS ORDERED: SUGAMMADEX SODIUM 200 MG/2 ML VIAL IV ONE (09:37)
[2025-04-03] MEDS ORDERED: KETOROLAC 30 MG/ML VIAL ONE (09:41)
[2025-04-03] MEDS: BUPIVACAINE/EPINEPHRINE 0.5% MPF 1:200,000 30 ML VIAL ONE (09:47)
--- NOTE | 2025-04-03 10:07 | Operative Report ---
PG Post Operative Report Pre & Post Diagnosis Operation Date: 04/03/25 08:30 Pre-Op Diagnosis: Recurrent Ventral hernia Post-Op Diagnosis: Recurrent Ventral hernia I identified the patient and participated in the time-out.: Yes Procedure Operation Date: 04/03/25 08:30 Actual Procedures p Laparoscopic Recurrent Ventral Hernia Repair with Mesh(Not Applicable) - Kahlil Isabel DO Surgeon Kahlil Isabel DO Cylinder Die Machine Helper jaylen Cárdenas Estimated Blood Loss 5 Findings Consistent with Post-Op Diagnosis Specimens none Description of Procedure After informed consent was obtained the patient was taken to the operating room and placed in supine position. After successful intubation the abdomen was sterilely prepped and draped in usual fashion. I began by making an incision in the left upper quadrant with 11 blade scalpel. This was carried down through the soft tissue using cautery. The anterior fascia was opened using cautery and two #0 Vicryl stay sutures were placed. Peritoneum was elevated with hemostats and incised under direct vision using a Metzenbaum scissor. A finger sweep was performed. A 12 mm Duque trocar was placed and the abdomen was insufflated to 18 mmHg. Laparoscope was inserted and the abdomen examined 360 degrees. Near the umbilicus there were actually 3 separate hernias in close proximity to each other by 2 separate fascial bridges. The entire diameter of all 3 defects measured approximately 6 cm. I placed a left mid abdominal 5 mm port a left lower quadrant 5 mm port and a right mid abdominal 5 mm port. I began by using traction and the harmonic scalpel to take down the hernia sac in 360 degrees. There was no bowel incarceration. Once I had the hernia sac down we then placed a 15 cm Surgimesh into the abdomen via the camera port. It was unrolled and placed such that the antiadhesive barrier was facing the bowel. A small skin marco a was made over the central portion of all 3 hernias and a fascial closure device inserted through it. The central Prolene stitch was grasped and used to pull the mesh up as an underlay. A reliatack with deep absorbable tacks was used to secure the mesh. It was secured in multiple rows in 360 degrees. The mesh laid nice and flat and tension-free and overlapped all of the hernias for several centimeters in all directions. The central Prolene stitch was also tied down. There was adequate hemostasis. No other abnormalities were noted. All the trocars were removed and the abdomen desufflated. Fascia of the camera port was closed using 0 Vicryl in a [id number] fashion. All the wounds were irrigated and closed using 4-0 Monocryl. Marcaine with epinephrine was injected around for postoperative analgesia skin glue used as a dressing. The patient was awakened extubated and transferred to recovery in stable condition. An abdominal binder was also placed prior to extubation. My physician executive assistant to general counsel was present through the entire case was instrumental in accessing the abdomen, running the camera for my dissection, assisting with mesh placement wound closure and dressing placement. I attest to the content of the Intraoperative Record and any orders documented therein. Any exceptions are noted below.
--- NOTE | 2025-04-03 10:24 | Anesthesiology Progress Note ---
Date of Service April 03, 2025 Anesthesia Post Procedure Vital Signs Vital Signs: Temp Pulse Pulse Resp BP BP Pulse Ox 04/03/25 10:20 57 L 14 150/85 H 100 04/03/25 10:10 57 L 12 153/80 H 100 04/03/25 10:00 36.2 C L 61 14 153/82 H 100 04/03/25 07:27 04/03/25 07:26 37 C 63 18 153/90 H 98 O2 Del Method O2 Flow Rate 04/03/25 10:20 Oxymask 4 04/03/25 10:10 Oxymask 6 04/03/25 10:00 Oxymask 6 04/03/25 07:27 Room Air 04/03/25 07:26 Room Air Transfer of Care Handoff Completed per policy Notes Mental Status: alert / awake / arousable Patient Amnestic to Procedure: Yes Nausea / Vomiting: adequately controlled Pain: adequately controlled Airway Patency, RR, SpO2: stable & adequate BP & HR: stable & adequate Hydration State: stable & adequate Anesthetic Complications: no major complications apparent and Pt Satisfied with anesthetic care
[2025-04-03] MEDS: KETOROLAC TROMETHAMINE 15 MG/ML VIAL IV ONE (16:06)
[2025-04-03] MEDS: SODIUM CHLORIDE 0.9% 1,000 ML IV SCH (16:06)
[2025-04-03] MEDS: MoRPHine SULFATE 4 MG/ML 1 ML CARP\\VIAL IV STA (16:07)
[2025-04-03] MEDS ORDERED: PHARMACY GLYCEMIC MGMT CONSULT PRN (17:22)
[2025-04-03] MEDS: GABAPENTIN 100 MG CAP PO SCH (20:56)
[2025-04-03] MEDS: PRAMIPEXOLE DIHYDROCHLO 0.5 MG TAB PO SCH (20:56)
[2025-04-03] MEDS: INSULIN ASPART PER UNIT CHARGE SC SCH (22:56)
[2025-04-04] MEDS: MoRPHine SULFATE 4 MG/ML 1 ML CARP\\VIAL IV PRN (03:06)
[2025-04-04] MEDS: LEVOTHYROXINE SODIUM 175 MCG TABLET PO SCH (05:56)
[2025-04-04 08:35] LABS: Hemoglobin A1C 6.4 % (4.5-5.6)
[2025-04-04] MEDS: TORSEMIDE 10 MG TAB PO SCH (08:50)
[2025-04-04] MEDS: ROSUVASTATIN CALCIUM 5 MG TAB PO SCH (08:51)
[2025-04-04] MEDS: ANASTROZOLE 1 MG TAB PO SCH (08:51)
--- NOTE | 2025-04-04 09:20 | Surgery Progress Note ---
Date of Service April 04, 2025 Assessment & Plan (1) Recurrent ventral hernia with incarceration: Plan: Postoperative day #1 Overall doing okay. 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 Sifuentes is on-call for the weekend if any concerns or questions Admission and Anticipated Discharge Date Admission Date: April 03, 2025 Subjective Patient seen. Doing okay. She is out of bed ambulating. Still has some discomfort but overall controlled Physical Exam Physical Exam: Alert no acute distress Abdomen is soft with expected tenderness. Results & Data Vital Signs (Past 12 Hours) Vital Signs Temp Pulse Resp BP Pulse Ox O2 Del Method 04/04/25 07:04 36.5 C 72 18 164/93 H 92 Room Air 04/04/25 03:00 36.8 C 67 16 166/90 H 94 Room Air 04/04/25 01:17 Room Air 04/03/25 23:13 36.8 C 69 16 127/79 93 Room Air PG Care Time/CCT Total # of Minutes Spent Total Time Spent with Patient: Total time spent is greater than 50% in coordination of care (as documented) at patient's floor/unit and/or counseling patient: Coding Level of Care Code 91051 Post Operative Follow-Up Diagnoses Recurrent ventral hernia with incarceration K43.0
--- NOTE | 2025-04-04 13:11 | Pharmacy Report ---
Pharmacy Glycemic Short Note 2 - Date of Service April 04, 2025 - Glycemic Short BSG Results (Last 24 hours): 04/03/25 04/03/25 04/04/25 16:04 20:33 07:45 POC Glucose 146 H 147 H 132 H 04/04/25 11:22 POC Glucose 157 H OUTPATIENT ANTIDIABETIC REGIMEN: * metformin 1 g PO qPM HbA1c: 6.4% (04/04/25) ASSESSMENT: * SM is a 74 year old female POD #1 s/p laparoscopic ventral hernia repair * Received 8 mg IV dexamethasone in OR, no ongoing steroids ordered * Blood sugars have so far been reasonably controlled with only bolus orders on at this time (no insulin has been administered thus far) * Possible discharge today vs. tomorrow PLAN FOR INPATIENT GLYCEMIC CONTROL: * Hold outpatient oral diabetes medications * Basal insulin * hold * Bolus insulin * NovoLog per scale ACHS or Q6hrs while NPO * Goal Range: Low 110 mg/dL - High 140 mg/dL * Correction Factor: 45 mg/dL/unit * Nutritional / Prandial insulin per carb ratio of 1 unit per 15 grams CHO consumed
[2025-04-04] MEDS: ONDANSETRON INJ 2 MG/ML 2 ML VIAL IV PRN (18:23)
[2025-04-04] MEDS: ACETAMINOPHEN 325 MG TAB PO PRN (19:33)
[2025-04-05] MEDS: PROMETHAZINE 25 MG/51 ML BAG IV PRN (02:47)
--- NOTE | 2025-04-05 09:35 | Surgery Progress Note ---
Date of Service April 05, 2025 Assessment & Plan (1) Recurrent ventral hernia with incarceration: Plan: Patient is POD #2 s/p laparoscopic ventral hernia repair -Doing ok however this morning did have 2 small episodes of emesis, she is unsure if this is related to pain medication or not. -Passing gas however no BM -VSS, afebrile -Patient does not feel comfortable this morning being discharged, she would like to see how the day goes which seems reasonable at this time given recent emesis. Admission and Anticipated Discharge Date Admission Date: April 04, 2025 Supervising Physician Co-Signing Physician Notes Patient seen and examined, labs reviewed, agree with above. POD #2 laparoscopic recurrent ventral hernia repair. Still with some mild nausea and general discomfort in her abdomen. She is passing gas but has not had a bowel movement. She is tolerated diet though she does endorse an episode of small amount of vomiting. Abdomen is soft, probably tender to palpation, incisions without infection. Encourage ambulation, continue with pain management. Will see how she is doing's afternoon, potential discharge today versus hopefully tomorrow. Subjective Patient see and evaluated, states she feels unwell and has had 2 small episodes of emesis this morning she is unsure if the pain medication is making her sick to her stomach Passing gas however no BM Still has some discomfort but overall controlled Patient has been up OOB to chair this morning Physical Exam Constitutional: WD/WN, vitals as above Respiratory: normal respiratory effort, lungs clear to auscultation Cardiovascular: Rate/Rhythm: regular rate Gastrointestinal (Abdomen): Abdomen soft, nondistended, +appropriate TTP over surgical sites No rebound or guarding Skin: no rashes, warm and dry Results & Data Vital Signs (Past 12 Hours) Vital Signs Temp Pulse Resp BP BP Pulse Ox O2 Del Method 04/05/25 07:17 36.8 C 77 16 160/98 H 93 Room Air 04/05/25 03:25 77 136/88 04/05/25 01:55 36.6 C 75 18 181/122 H 92 Room Air 04/04/25 23:08 158/83 H PG Care Time/CCT Total # of Minutes Spent Total Time Spent with Patient: Total time spent is greater than 50% in coordination of care (as documented) at patient's floor/unit and/or counseling patient: [place] [address] Post Operative Follow-Up Patient Type Established Medical Decision Making Straight Forward Diagnoses Recurrent ventral hernia with incarceration K43.0
[2025-04-05] MEDS: LACTATED RINGER'S 1,000 ML IV SCH (17:12)
--- NOTE | 2025-04-05 17:33 | XRay Report ---
EXAM: XR KUB/Abdomen 1 view CLINICAL HISTORY: post-op hernia reapir, eval for ileus vs SBO TECHNIQUE: X-ray images of the abdomen were obtained in supine positions. COMPARISON: 11/23/2023. FINDINGS: Gas Pattern: Stable dilated small and large bowel loops (mainly small reaching up to 4.7cm in caliber ). No evidence of pneumopretonium. Soft Tissues: Multiple subcutaneous gas foci are noted at the left side of the abdominal wall, suggesting possible postoperative changes. IMPRESSION: 1. Stable dilated small and large bowel loops (mainly small bowels reaching up to 4.7cm in caliber ), denoting intestinal obstruction; regarding recent surgery, consistent with paralytic ileus. Clinical correlation and post-contrast CT are recommended. 2. Multiple subcutaneous gas foci are noted at the left side of the abdominal wall suggesting possible postoperative changes. Electronically signed by Enrique Maciel 04-05-2025 5:33 PM
[2025-04-05] MEDS: LANTUS PER UNIT CHARGE SC SCH (21:23)
[2025-04-06] MEDS ORDERED: CHLORASEPTIC (PHENOL) 1.4% SOLN 180 ML BTL MT PRN ×2 (00:09→00:33)
--- NOTE | 2025-04-06 01:44 | XRay Report ---
EXAM: XR KUB/Abdomen 1 view CLINICAL HISTORY: NG tube placement TECHNIQUE: X-ray images of the abdomen were obtained in supine positions. COMPARISON: 04/05/2025 CR, FINDINGS: NG tube is seen within the stomach, with its tip approaching the gastric pylorus. The stomach appears distended in the current study compared to the last one, and projecting upon the cardiac shadow, raising the possibility of hiatus hernia Gas Pattern: Still noted dilated small and large bowel loops in the visualized portion of the upper abdomen. No evidence of pneumopretonium. Left pulmonary basal atelectatic plates unclear left costophrenic angle by minimal effusion / pleural thickening IMPRESSION: 1. NG tube within the stomach, with its tip approaching the gastric pylorus in normal position. 2. Distended stomach ( newly seen ) with suspected hiatus hernia 3. Distended small and large bowel loops, Stable Electronically signed by Enrique Maciel 04-06-2025 01:43 AM
--- NOTE | 2025-04-06 08:15 | Surgery Progress Note ---
Date of Service April 06, 2025 Assessment & Plan (1) Recurrent ventral hernia with incarceration: Plan: Patient is POD #3 s/p laparoscopic ventral hernia repair - Over the course of the last 24 hours patient continued with ongoing nausea and episodes of emesis. Patient's diet was back down and KUB was obtained which demonstrated findings concerning of ileus versus SBO. Patient ultimately did require NG tube to be placed early this morning with 1000 mL recorded output. For now we will keep the NG tube in place, continue suction, patient to remain n.p.o., and IV fluids have been restarted. If patient is feeling better later, possible clamping trial. -Will change oral pain medication to IV Tylenol, Toradol, and as needed morphine for pain. However, patient states the pain overall has improved since surgery. - Will also add as needed blood pressure medication for systolic pressures greater than 160. - Encourage ambulation and out of bed while awake (2) Postoperative ileus: Admission and Anticipated Discharge Date Admission Date: April 04, 2025 Supervising Physician Co-Signing Physician Notes Patient seen and examined, labs reviewed, agree with above. POD #3 laparoscopic recurrent ventral hernia repair. Continued with nausea and vomiting yesterday, KUB showed ileus, NG tube placed overnight for continued emesis. Feels better, less bloated. Still passing flatus. On exam afebrile stable vitals, abdomen soft, appropriately tender palpation, mildly distended. KUB personally reviewed and agree with the assessment of distended small bowel consistent with ileus. NG tube in proper place. Will keep the NG tube in till tomorrow, if she continues to pass gas and feels better may consider trial of clamping or removal. Will get KUB in the morning. Subjective -Patient over the course of yesterday afternoon into the evening with ongoing nausea and small amounts of emesis. Patient's diet was backed down and a KUB was obtained which demonstrated dilated small and large bowel consistent with ileus vs SBO. The patient continued with ongoing nausea and vomiting and ultimately required NGT placement early this morning. -NGT in good positioning and 1,000mL gastric output has been recorded. -Patient this morning states she continues to feel overall lousy and weak but states her overall pain has improved. -Patient also noted to have elevated BP overnight with SBP in the 160-180s. Physical Exam Constitutional: WD/WN, vitals as above Respiratory: normal respiratory effort; no labored breathing Cardiovascular: Rate/Rhythm: regular rate Gastrointestinal (Abdomen): Abdomen soft, nondistended, appropriate TTP over surgical sites. Incisions are c/d/i without any overlying signs of infection Skin: no rashes, warm and dry Results & Data Vital Signs (Past 12 Hours) Vital Signs Temp Pulse Resp BP BP Pulse Ox O2 Del Method 04/06/25 07:23 36.4 C L 98 H 16 160/106 H 152/109 H 95 Room Air 04/05/25 20:30 Room Air PG Care Time/CCT Total # of Minutes Spent Total Time Spent with Patient: Total time spent is greater than 50% in coordination of care (as documented) at patient's floor/unit and/or counseling patient: [place] [address] Post Operative Follow-Up Patient Type Established Medical Decision Making Straight Forward Diagnoses Recurrent ventral hernia with incarceration K43.0 Postoperative ileus K91.89; K56.7
[2025-04-06 10:21] LABS: Creatinine Clr Calc Pharmacy 72.9 ml/min
[2025-04-06] MEDS: ACETAMINOPHEN 1,000 MG/100 ML VIAL IV SCH (10:57)
[2025-04-06] MEDS: ENOXAPARIN INJ 40 MG/0.4 ML SYR SQ SCH (11:32)
[2025-04-06 13:29] LABS: Hematocrit (blood only) 39.9 % (37.0-47.0); Hemoglobin 13.4 g/dl (12.0-16.0); Mean Corpuscular Hemoglobin 28.9 pg (25.0-34.0); Mean Corpuscular Volume 86.2 fL (80.0-100.0); Platelet Count 264 K/uL (130-400); RDW Standard Deviation 41.6 fL (36.4-46.3); Red Blood Count 4.63 M/uL (4.20-5.40); White Blood Count 4.95 K/ul (4.8-10.8)
[2025-04-06 13:42] LABS: Anion Gap 11.0 (3-11); Blood Urea Nitrogen 34.0 mg/dl (6-23); Calcium 9.4 mg/dl (8.6-10.3); Carbon Dioxide 30.0 mmol/L (21-32); Chloride 94.0 mmol/L (98-107); Creatinine Clr Calc Pharmacy 72.9 ml/min; Glucose 166.0 mg/dl (70-99(Fasting)); Potassium 3.7 mmol/L (3.5-5.1); Sodium 135.0 mmol/L (136-145)
[2025-04-06 13:46] LABS: Immature Granulocytes # (auto) 0.01 K/uL (0.01-0.20); Immature Granulocytes % (auto) 0.2 %
[2025-04-06] MEDS: MoRPHine SULFATE 2 MG/ML CARP IV PRN (14:29)
[2025-04-06] MEDS ORDERED: PANTOprazole 40 MG/10 ML SYR IV SCH (14:30)
[2025-04-06] MEDS: PANTOprazole 40 MG/10 ML SYR IV SCH (14:46)
--- NOTE | 2025-04-06 17:35 | XRay Report ---
EXAM: XR KUB/Abdomen 1 view CLINICAL HISTORY: Nasogastric tube Placement. TECHNIQUE: X-ray images of the abdomen were obtained in supine and upright positions. COMPARISON: 04/05/2025 FINDINGS: Suboptimal scan, not including the full abdomen. Tubes: A nasogastric tube is noted at the site of the stomach. Gas Pattern: Relatively reduced bowel gases. IMPRESSION: Nasogastric tube at the stomach site, no coiling compared to last CR. Electronically signed by Enrique Maciel 04-06-2025 5:34 PM
[2025-04-07 06:47] LABS: Hematocrit (blood only) 34.7 % (37.0-47.0); Hemoglobin 11.7 g/dl (12.0-16.0); Mean Corpuscular Hemoglobin 29.3 pg (25.0-34.0); Mean Corpuscular Volume 86.8 fL (80.0-100.0); Platelet Count 253 K/uL (130-400); RDW Standard Deviation 42.1 fL (36.4-46.3); Red Blood Count 4.00 M/uL (4.20-5.40); White Blood Count 3.68 K/ul (4.8-10.8)
[2025-04-07 07:09] LABS: Anion Gap 8.0 (3-11); Blood Urea Nitrogen 41.0 mg/dl (6-23); Calcium 8.6 mg/dl (8.6-10.3); Carbon Dioxide 34.0 mmol/L (21-32); Chloride 95.0 mmol/L (98-107); Creatinine Clr Calc Pharmacy 72.0 ml/min; Glucose 142.0 mg/dl (70-99(Fasting)); Potassium 3.3 mmol/L (3.5-5.1); Sodium 137.0 mmol/L (136-145)
[2025-04-07 08:34] LABS: Dohle Bodies 1+; Immature Granulocytes # (auto) 0.02 K/uL (0.01-0.20); Immature Granulocytes % (auto) 0.5 %; Polychromasia 1+
--- NOTE | 2025-04-07 09:11 | Surgery Progress Note ---
Date of Service April 07, 2025 Assessment & Plan (1) Recurrent ventral hernia with incarceration: Plan: Doing okay. NG tube with minimal output over the last 12 hours. Awaiting today's KUB. If improved we will perform a clamping trial hopefully get the NG tube out and start clear liquids soon. I will restart her Mirapex and clamp the NG tube to help with her restless legs. (2) Morbid obesity: (3) Postoperative ileus: Admission and Anticipated Discharge Date Admission Date: April 04, 2025 Subjective Patient seen. She is getting frustrated with her progress. She is passing some gas and had a's mall stool smear. No real nausea. Physical Exam Physical Exam: Alert no acute distress NG tube in place Abdomen is soft nondistended. Nontender. Incisions look good Results & Data Vital Signs (Past 12 Hours) Vital Signs Temp Pulse Resp BP Pulse Ox O2 Del Method 04/07/25 07:00 36.9 C 99 H 18 123/84 91 Room Air PG Care Time/CCT Total # of Minutes Spent Total Time Spent with Patient: Total time spent is greater than 50% in coordination of care (as documented) at patient's floor/unit and/or counseling patient: Coding Level of Care Code 93930 Post Operative Follow-Up Diagnoses Recurrent ventral hernia with incarceration K43.0 Morbid obesity E66.01 Postoperative ileus K91.89; K56.7
[2025-04-07] MEDS: PRAMIPEXOLE DIHYDROCHLO 0.5 MG TAB PO SCH (09:22)
--- NOTE | 2025-04-07 10:20 | XRay Report ---
KUB HISTORY: eval for impoving sbo COMPARISON STUDY: 04/06/2025 and 04/05/2025 FINDINGS: Stable large hiatal hernia. Nasogastric tube tip is near the hiatus, likely at the proximal to mid body of the stomach. There is diffuse small bowel distention measuring up to 6 cm diameter, i ncreased. No colonic distention seen. No gross free air. IMPRESSION: Increased small bowel distention. ACT 112: Negative or not required by law. The above report was generated using voice recognition software. It may contain grammatical, syntax o r spelling errors. Electronically signed by: Ashish Baca M.D. 04/07/2025 10:18 AM
--- NOTE | 2025-04-07 11:44 | Pharmacy Report ---
Pharmacy Glycemic Short Note 2 - Date of Service April 07, 2025 - Glycemic Short BSG Results (Last 24 hours): 04/06/25 04/06/25 04/06/25 11:56 13:15 18:36 Glucose 166 H POC Glucose 153 H 150 H 04/07/25 04/07/25 04/07/25 00:03 06:07 06:08 Glucose 142 H POC Glucose 122 H 127 H 04/07/25 11:37 Glucose POC Glucose 127 H OUTPATIENT ANTIDIABETIC REGIMEN: * metformin 1 g PO qPM HbA1c: 6.4% (04/04/25) ASSESSMENT: 04/07 * Holly received 2 units of insulin yesterday (both were bolus). Of note, she reportedly has refused several doses of insulin. Despite this, most of her BSGs were only slightly above goal yesterday * Fasting BSG was 127mg/dL this morning. Will continue currently basal/bolus insulin regimens without change 04/04 * SM is a 74 year old female POD #1 s/p laparoscopic ventral hernia repair * Received 8 mg IV dexamethasone in OR, no ongoing steroids ordered * Blood sugars have so far been reasonably controlled with only bolus orders on at this time (no insulin has been administered thus far) * Possible discharge today vs. tomorrow PLAN FOR INPATIENT GLYCEMIC CONTROL: * Hold outpatient oral diabetes medications * Basal insulin * Lantus scale at HS (0 or 5 units depending on BSG) * Bolus insulin * NovoLog per scale ACHS or Q6hrs while NPO * Goal Range: Low 110 mg/dL - High 140 mg/dL * Correction Factor: 45 mg/dL/unit * Nutritional / Prandial insulin per carb ratio of 1 unit per 15 grams CHO consumed
[2025-04-07] MEDS ORDERED: Nursing to Pharmacy Communication SCH (20:00)
[2025-04-08] MEDS: INSULIN ASPART PER UNIT CHARGE SC SCH (00:09)
[2025-04-08 07:11] LABS: Hematocrit (blood only) 33.5 % (37.0-47.0); Hemoglobin 10.9 g/dl (12.0-16.0); Mean Corpuscular Hemoglobin 28.6 pg (25.0-34.0); Mean Corpuscular Volume 87.9 fL (80.0-100.0); Platelet Count 237 K/uL (130-400); RDW Standard Deviation 43.9 fL (36.4-46.3); Red Blood Count 3.81 M/uL (4.20-5.40); White Blood Count 4.13 K/ul (4.8-10.8)
[2025-04-08 07:25] LABS: Anion Gap 12.0 (3-11); Blood Urea Nitrogen 37.0 mg/dl (6-23); Calcium 8.5 mg/dl (8.6-10.3); Carbon Dioxide 31.0 mmol/L (21-32); Chloride 96.0 mmol/L (98-107); Creatinine Clr Calc Pharmacy 78.9 ml/min; Glucose 97.0 mg/dl (70-99(Fasting)); Potassium 3.0 mmol/L (3.5-5.1); Sodium 139.0 mmol/L (136-145)
[2025-04-08 07:29] LABS: Immature Granulocytes # (auto) 0.03 K/uL (0.01-0.20); Immature Granulocytes % (auto) 0.7 %; Toxic Vacuolation 1+
--- NOTE | 2025-04-08 08:13 | XRay Report ---
KUB HISTORY: post-op ileus, eval for improvement COMPARISON STUDY: 04/07/2025 FINDINGS: Stable large hiatal hernia. Nasogastric tube tip is near the hiatus, likely at the proximal to mid body of the stomach. There is diffuse small bowel distention measuring up to 6 cm diameter, s table. No colonic distention seen. No gross free air. IMPRESSION: Stable exam. ACT 112: Negative or not required by law. The above report was generated using voice recognition software. It may contain grammatical, syntax o r spelling errors. Electronically signed by: Ashish Baca M.D. 04/08/2025 8:11 AM
--- NOTE | 2025-04-08 08:23 | Surgery Progress Note ---
Date of Service April 08, 2025 Assessment & Plan (1) Postoperative ileus: Plan: Keep NG tube. Correct electrolytes. I am going to order a small bowel follow- through today to try and rule out a true small bowel obstruction. (2) Morbid obesity: (3) S/P recurrent ventral herniorrhaphy: Admission and Anticipated Discharge Date Admission Date: April 04, 2025 Subjective Patient seen. She feels fine and would like to go home. Minimal abdominal discomfort. No bowel function yet Physical Exam Physical Exam: Alert no acute distress Abdomen is soft with mild distention. Incisions look good Results & Data Vital Signs (Past 12 Hours) Vital Signs Temp Pulse Resp BP BP Pulse Ox O2 Del Method 04/08/25 07:07 36.8 C 92 H 18 151/85 H 93 Room Air 04/07/25 20:28 36.4 C L 95 H 16 150/85 H 93 Room Air PG Care Time/CCT Total # of Minutes Spent Total Time Spent with Patient: Total time spent is greater than 50% in coordination of care (as documented) at patient's floor/unit and/or counseling patient: Coding Level of Care Code 65177 Post Operative Follow-Up Diagnoses Postoperative ileus K91.89; K56.7 Morbid obesity E66.01 S/P recurrent ventral herniorrhaphy Z98.890; Z87.19
[2025-04-08] MEDS: SODIUM CHLORIDE 0.9% 250 ML IV ONE (08:56)
[2025-04-08] MEDS: POTASSIUM CHLORIDE / WTR 10 MEQ/100 ML PLCT IV SCH (09:04)
[2025-04-08] MEDS ORDERED: Nursing to Pharmacy Communication SCH (10:00)
[2025-04-08] MEDS: PRAMIPEXOLE DIHYDROCHLO 0.5 MG TAB PO SCH (14:31)
--- NOTE | 2025-04-08 14:51 | Fluoroscopy Report ---
FL small bowel follow through CLINICAL HISTORY: ileus/sbo. ok to give contrast via ngt. TECHNIQUE: Oral barium was administered to the patient and serial radiographs of the abdomen were pe rformed. COMPARISON STUDY: 04/08/2025 x-ray IMAGES: 11 FINDINGS: Stable large hiatal hernia. Nasogastric tube tip is stable at the level of the hiatus, like ly at the proximal to mid body of the stomach. Contrast progresses through the stomach to the small b owel. By 3 hours, contrast progresses to the mid jejunum. There is small bowel distention measuring u p to 6 cm diameter. The stomach is distended with contrast. The patient is uncomfortable, so the deci deanna was made to allow the nurse on the floor to suction off some gastric contrast to lower risk of a spiration. On the 4 hour view there was no progression of the contrast and stable small bowel distent ion up to 6 cm. IMPRESSION: Findings are consistent with small bowel obstruction. Suggest follow-up KUB tomorrow morn ing to see if there is any progression of the contrast overnight. ACT 112: Negative or not required by law. The above report was generated using voice recognition software. It may contain grammatical, syntax o r spelling errors. Electronically signed by: Ashish Baca M.D. 04/08/2025 2:50 PM
[2025-04-09] MEDS: LACTATED RINGER'S 1,000 ML IV SCH ×2 (05:32→15:08)
--- NOTE | 2025-04-09 07:33 | Surgery Progress Note ---
Date of Service April 09, 2025 Assessment & Plan (1) Postoperative ileus: Plan: Post op ileus SBFT yesterday showed ongoing obstruction KUB this AM: image in not read by radiology Continue NGT at this time 800cc in last 12 hr Pt may shower /OOB encourage ambulating TID post op sites CDI dermabond abd soft non distended will follow feeling ok 2 small bm. xray still looks concerning. if no major improvement over next 24 hours might need to perform laparoscopy tomorrow will start PPN Admission and Anticipated Discharge Date Admission Date: April 04, 2025 Subjective pt reports feeling better this AM than yesterday denies abd pain , n/v at present time +sm amt of flatus and sm bm yesterday Review of Systems Constitutional: no fever and no chills Eyes: + corrective lenses Respiratory: no dyspnea Cardiovascular: no chest pain Gastrointestinal: no abdominal pain, no nausea and no vomiting Psychiatric: no confusion Physical Exam Constitutional: cooperative and comfortable; no acute distress Respiratory: no respiratory distress Gastrointestinal (Abdomen): Inspection/Auscultation: + abdominal surgical incision (CDI ); abdomen not distended Percussion/Palpation: + abdomen tender and abdomen soft; no guarding Psychiatric: A+Ox3, euthymic affect Results & Data Vital Signs (Past 12 Hours) Vital Signs Temp Pulse Resp BP Pulse Ox O2 Del Method 04/09/25 07:24 97.8 F 83 16 151/81 H 91 Room Air PG Care Time/CCT Total # of Minutes Spent Total Time Spent with Patient: Total time spent is greater than 50% in coordination of care (as documented) at patient's floor/unit and/or counseling patient: Coding Level of Care Code 41293 Post Operative Follow-Up Diagnoses Postoperative ileus K91.89; K56.7
--- NOTE | 2025-04-09 07:50 | XRay Report ---
EXAM: XR KUB/Abdomen 1 view CLINICAL HISTORY: SBFT 04/08, eval for contrast in colon. TECHNIQUE: X-ray image of the abdomen obtained in supine position. COMPARISON: Prior X-ray dated 04/07/2025 for comparison. FINDINGS: Gas Pattern: Multiple dilated small bowel loops with a maximum caliber of 4.6 cm. Contrast in jejunal loops in left abdomen. Fecal loaded colon and no contrast in the colon. Soft Tissues: Soft tissues of the abdomen appear normal without evidence of masses or calcifications. Liver, spleen, and kidneys are of normal size and position. Spondylotic changes in the thoracolumbar spine. IMPRESSION: 1. Fecal loaded colon and no contrast in colon, unchanged. 2. Contrast in jejunal loops in the left abdomen, a new finding. 3. Dilated Multiple dilated small bowel loops with maximum caliber of 4.6 cm, unchanged. Electronically signed by Enrique Maciel 04-09-2025 07:50 AM
[2025-04-09] MEDS ORDERED: DEXTROSE 10% 1,000 ML IV PRN (07:54)
[2025-04-09] MEDS ORDERED: TPN/PPN CONSULT PHARMACY PRN (08:12)
[2025-04-09 08:52] LABS: Hematocrit (blood only) 36.6 % (37.0-47.0); Hemoglobin 12.0 g/dl (12.0-16.0); Mean Corpuscular Hemoglobin 28.9 pg (25.0-34.0); Mean Corpuscular Volume 88.2 fL (80.0-100.0); Platelet Count 321 K/uL (130-400); RDW Standard Deviation 44.4 fL (36.4-46.3); Red Blood Count 4.15 M/uL (4.20-5.40); White Blood Count 5.69 K/ul (4.8-10.8)
[2025-04-09 09:10] LABS: Alanine Aminotransferase 12.0 U/L (7-52); Alkaline Phosphatase 53.0 U/L (34-104); Anion Gap 17.0 (3-11); Bilirubin,Total 0.5 mg/dl (0.2-1.0); Blood Urea Nitrogen 35.0 mg/dl (6-23); Calcium 8.8 mg/dl (8.6-10.3); Carbon Dioxide 27.0 mmol/L (21-32); Chloride 95.0 mmol/L (98-107); Creatinine Clr Calc Pharmacy 72.9 ml/min; Glucose 90.0 mg/dl (70-99(Fasting)); Magnesium 2.1 mg/dl (1.7-2.4); Potassium 3.2 mmol/L (3.5-5.1); Sodium 139.0 mmol/L (136-145); Triglycerides 179.0 mg/dl (0-150)
[2025-04-09] MEDS: POTASSIUM CHLORIDE / WTR 10 MEQ/100 ML PLCT IV SCH (11:10)
--- NOTE | 2025-04-09 11:25 | Pharmacy Report ---
Pharmacy Initial PN Consult Nt - Date of Service April 09, 2025 - Scope Pharmacy has been consulted on this date to manage parenteral nutrition orders and order appropriate labs. As part of the Nutrition Support Team Guidelines, pharmacy will work in conjunction with dietary when determining the patients ca loric needs. - Subjective * The patient is a 74 year old Female admitted on 04/04/25 for Recurrent Ventral hernia. * Patient is to receive parenteral nutrition for postop ileus/ongoing SBO. - Objective Vascular Access: * Patient currently has a peripheral line. * Peripheral line was confirmed by IV Team to be acceptable for PPN use on this date--new line inserted today Height & Weight (Last Documented) Height 5 ft 4 in Weight 108.6 kg Diet Order(s) 04/09/25 09:30 NPO Intake & Ouput (24hrs) 04/08/25 04/09/25 04/10/25 06:59 06:59 06:59 Intake Total 2091.25 / 2091.25 2750 / 2750 Output Total 1350 / 1350 2350 / 2350 Balance 741.25 / 741.25 400 / 400 Selected Laboratory Results 04/09/25 08:37 Sodium 139 Potassium 3.2 L Chloride 95 L Carbon Dioxide 27 Anion Gap 17 H BUN 35 H Creatinine 0.79 BUN/Creatinine Ratio 44.3 H Glucose 90 Calcium 8.8 Phosphorus 2.7 Magnesium 2.1 Total Bilirubin 0.5 AST 16 ALT 12 Alkaline Phosphatase [address] - Follow Up Nutrition Assessment Start: 04/08/25 14:23 Freq: Status: Active Protocol: Document 04/09/25 09:39 [id number] (Rec: 04/09/25 09:55 [id number]) RD - Initial Nutrition Assessment Start: 04/08/25 10:53 Freq: Status: Active Protocol: Document 04/08/25 10:53 [id number] (Rec: 04/08/25 10:53 [id number]) - Assessment & Plan Assessment: * Appreciate dietitians recommendations for macronutrients. Patient likely to return to OR 04/10 for laparoscopy. * New peripheral iv line inserted by IV team today Plan: * For Day #1 of PPN administration, the following will be ordered: * Macronutrients: * Amino Acids: 42.5 grams/day * Dextrose: 50 grams/day * Lipids: 0 grams/day * Micronutrients: * TPN electrolytes: 40 mL/day - Contains 35 mEq Na, 20 mEq K, 4.5 mEq Ca, 5 mEq Mg, 35 mEq Cl, 29.5 mEq Acetate per 20 mL * Potassium phosphate: 9 mMol/day * Multivitamins: 10 mL/day * Trace elements: 1 mL/day * Thiamine: 100 mg/day * Total volume of 1055 mL will be infused over 24 hours and will provide 340 kcal/day * Patient is on PPN which has a maximum mOsm/L of 900. Final osmolarity of current solution is 895 mOsm/L. * Labs will be ordered per PN protocol. * Pharmacy will follow and adjust PN orders on a daily basis. Thank you!
[2025-04-09] MEDS: PERIPHERAL TPN IV SCH (15:13)
[2025-04-09] MEDS: [UNRECOGNIZED DRUG - OTHER] IV SCH (15:13)
[2025-04-09] MEDS: Nursing to Pharmacy Communication SCH (16:22)
[2025-04-09] MEDS: INSULIN ASPART PER UNIT CHARGE SC SCH (17:25)
[2025-04-09] MEDS: KETOROLAC TROMETHAMINE 15 MG/ML VIAL IV PRN (23:36)
--- NOTE | 2025-04-09 23:40 | Communication Note ---
Date of Service: April 09, 2025 I was called by nursing staff approx. 11:15 pm on 04/09/25 the patient was having abdominal pain as well as nausea and vomiting. They noted that her NG tube was removed earlier today inadvertently. I visited with the patient at the bedside. Her abdomen is soft with some mild tenderness to palpation. She does have continued nausea and vomiting. I instructed the nursing staff to replace the NG tube which they have. Will place this to low continuous suction and make the patient n.p.o. She was receiving intravenous fluids/PPN. Dr. Isabel is considering laparoscopy tomorrow I was notified by nursing staff that after NG tube placed they did obtain an excess of 1 L of gastric contents however on chest x-ray the NG tube appears to be coiled and not positioned properly. I remove the NG tube and replaced it and got a repeat x-ray and again that the tube does not appear to be positioned properly. I attempted to reposition it without success. The tube appears coiled above the left hemidiaphragm (possibly in hiatal hernia--she has a noted Hiatal hernia on a previous CT scan of chest). Due to the appearance of the NG tube on imaging I did not feel comfortable leaving in place, therefore elected to remove the NG tube as the the patient had improvement of her previously noted symptoms. Will continue to follow closely. If she has recurrent N/V will consider attempting to replace NGT again. Addendum (6:30 am) Dr. Isabel notified of events and he plans on proceeding with OR this am. She has been added to schedule for today.
--- NOTE | 2025-04-10 01:36 | XRay Report ---
EXAM: XR KUB/Abdomen 1 view CLINICAL HISTORY: NG tube insertion TECHNIQUE: Radiograph of chest was acquired. COMPARISON: 04/09/2025 23:00:32 [employer] FINDINGS: Hiatal hernia with nasogastric tube coiled in the fundus of stomach. Subsegmental atelectatic band in left lower zone. Rest of the lungs are clear and well-expanded with no pulmonary infiltrate or pleural effusion. The cardiomediastinal silhouette is within normal limits. No acute osseous abnormality. Non-obstructive, non-specific bowel gas pattern. No significant air fluid levels. No evidence of air under diaphragm. Bony shadows appear unremarkable. IMPRESSION: 1. Hiatal hernia with nasogastric tube likely coiled in the fundus of stomach in intra-thoracic cavity. 2. Subsegmental atelectatic band in left lower zone. Similar findings on previous radiograph. CT chest for better evaluation if clinically indicated. Electronically signed by Dougie Lopez 04-10-2025 01:36 AM
--- NOTE | 2025-04-10 01:50 | XRay Report ---
EXAM: XR KUB/Abdomen 1 view CLINICAL HISTORY: Nasogastric tube (NGT) placement. TECHNIQUE: X-ray image including the chest and abdomen was obtained in a frontal position. COMPARISON: 04/09/2025 23:00:32 [facility]. FINDINGS: The NGT is in the stomach and shows a loop in the left chest (above the diaphragm), likely within a hiatal hernia; the tip is at the antrum with a hole in the body. Gas Pattern: Still noted dilated bowel loops in the central abdomen. Soft Tissues: Soft tissues of the abdomen appear normal without evidence of masses or calcifications. No gross airspace opacities in the chest. IMPRESSION: 1. Nasogastric tube in place. Better in location compared to prior. 2. Still noted dilated bowel loops in the central abdomen. Electronically signed by Enrique Maciel 04-10-2025 01:49 AM
[2025-04-10 06:54] LABS: Hematocrit (blood only) 31.6 % (37.0-47.0); Hemoglobin 10.4 g/dl (12.0-16.0); Mean Corpuscular Hemoglobin 29.1 pg (25.0-34.0); Mean Corpuscular Volume 88.5 fL (80.0-100.0); Platelet Count 254 K/uL (130-400); RDW Standard Deviation 43.9 fL (36.4-46.3); Red Blood Count 3.57 M/uL (4.20-5.40); White Blood Count 4.87 K/ul (4.8-10.8)
[2025-04-10 07:18] LABS: Immature Granulocytes # (auto) 0.11 K/uL (0.01-0.20); Immature Granulocytes % (auto) 2.3 %; Toxic Granulation 1+
[2025-04-10 07:19] LABS: Anion Gap 10.0 (3-11); Blood Urea Nitrogen 37.0 mg/dl (6-23); Calcium 8.2 mg/dl (8.6-10.3); Carbon Dioxide 31.0 mmol/L (21-32); Chloride 97.0 mmol/L (98-107); Creatinine Clr Calc Pharmacy 86.0 ml/min; Glucose 126.0 mg/dl (70-99(Fasting)); Magnesium 2.1 mg/dl (1.7-2.4); Potassium 3.2 mmol/L (3.5-5.1); Sodium 138.0 mmol/L (136-145)
--- NOTE | 2025-04-10 09:35 | Surgery Progress Note ---
Date of Service April 10, 2025 Assessment & Plan (1) Small bowel obstruction: Plan: Seems to clearly have a small bowel obstruction not a postoperative ileus. Recommending we proceed today with diagnostic laparoscopy and surgery as needed. We discussed the risks which include bleeding infection injury to another organ blood clots etc. I have answered her questions. She agrees with the plan. Will proceed today with a diagnostic laparoscopy surgery as needed. (2) S/P recurrent ventral herniorrhaphy: Admission and Anticipated Discharge Date Admission Date: April 04, 2025 Subjective Patient seen. Events of last night noted. She became quite nauseous. NG tube was replaced with a large amount of output she immediately felt better. Currently no NG tube in. Physical Exam Physical Exam: Alert no acute distress Abdomen is soft. Nontender. Minimal distention Results & Data Vital Signs (Past 12 Hours) Vital Signs Temp Pulse Resp BP Pulse Ox O2 Del Method 04/10/25 07:13 36.6 C 80 16 135/84 92 Room Air PG Care Time/CCT Total # of Minutes Spent Total Time Spent with Patient: Total time spent is greater than 50% in coordination of care (as documented) at patient's floor/unit and/or counseling patient: Coding Level of Care Code 59115 Post Operative Follow-Up Diagnoses Small bowel obstruction K56.609 S/P recurrent ventral herniorrhaphy Z98.890; Z87.19
[2025-04-10] MEDS ORDERED: Nursing to Pharmacy Communication SCH (10:15)
[2025-04-10] MEDS ORDERED: PROPOFOL IV EMULSION 10 MG/ML 20 ML VIAL IV ONE (11:01)
[2025-04-10] MEDS ORDERED: SUCCINYLCHOLINE 100MG/5ML SYR IV ONE (11:01)
[2025-04-10] MEDS ORDERED: DEXAMETHASONE SOD INJ 4 MG/ML VIAL ONE (11:01)
[2025-04-10] MEDS ORDERED: ROCURONIUM BROMIDE 10 MG/ML 5 ML VIAL IV ONE (11:01)
[2025-04-10] MEDS ORDERED: ONDANSETRON INJ 2 MG/ML 2 ML VIAL ONE (11:01)
[2025-04-10] MEDS ORDERED: SUGAMMADEX SODIUM 200 MG/2 ML VIAL IV ONE (11:02)
[2025-04-10] MEDS: INSULIN ASPART PER UNIT CHARGE SC SCH (12:35)
[2025-04-10] MEDS: POTASSIUM PHOSPHATE 9 MMOL in SODIUM CHLORIDE 0.9% 250 ML IV ONE (12:48)
--- NOTE | 2025-04-10 12:50 | XRay Report ---
KUB HISTORY: obstruction cleared or not COMPARISON STUDY: 04/10/2025 and 04/09/2025 FINDINGS: There is diffuse small bowel distention measuring up to 5 cm diameter, stable. No colonic d istention seen. No gross free air. IMPRESSION: Stable small bowel obstruction. ACT 112: Negative or not required by law. The above report was generated using voice recognition software. It may contain grammatical, syntax o r spelling errors. Electronically signed by: Ashish Baca M.D. 04/10/2025 12:49 PM
--- NOTE | 2025-04-10 13:18 | Anesthesiology Consultation ---
Date of Service April 10, 2025 Assessment & Plan Chart Review Chart Review: Acceptable Risk for Surgery and Patient NOT seen in Pre Admission Testing Consults Requested none History Surgery Operation Date: 04/03/25 08:30 Proposed Procedures p Laparoscopic Recurrent Ventral Hernia Repair with Mesh - Kahlil Isabel DO Operation Date: 04/10/25 07:00 Proposed Procedures p Diagnostic Laparoscopy, Possible Bowel Resectin, Surgery as Needed - Kahlil Isabel DO Height/Weight Height: 5 ft 4 in Weight: 108.6 kg Allergies Allergy/AdvReac Type Severity Reaction Status Date / Time lisinopril Allergy Severe Throat Verified 04/03/25 07:23 Swelling, Shortness of Breath Penicillins Allergy Severe Shortness Verified 04/03/25 07:23 of Breath latex Allergy Intermediate Rash Verified 04/03/25 07:23 sulfamethoxazole Allergy Mild Rash Verified 04/03/25 07:23 [From Bactrim] trimethoprim [From Bactrim] Allergy Mild Rash Verified 04/03/25 07:23 atorvastatin AdvReac Intermediate Jittery, Verified 04/03/25 07:23 Unable to Sleep empagliflozin AdvReac Intermediate Abdominal Verified 04/03/25 07:23 [From Jardiance] Pain Medications Home Medications Medication Instructions Recorded Confirmed Last Taken anastrozole 1 mg tablet 1 mg PO DAILY 11/24/23 04/03/25 04/03/25 06:00 carvedilol 12.5 mg tablet 12.5 mg PO BID 11/24/23 04/03/25 04/03/25 06:00 levothyroxine 175 mcg tablet 175 mcg PO UD 11/24/23 04/03/25 04/03/25 06:00 torsemide 10 mg tablet 10 mg PO DAILY 11/24/23 04/03/25 04/02/25 07:30 oxycodone-acetaminophen 5 mg-325 See Rx Instructions .Route .COMPLEX 05/05/24 04/03/25 04/02/25 21:00 mg tablet 0.25 tablet omeprazole 20 mg capsule,delayed 20 mg PO DAILY #90 caps 12/03/24 04/03/25 04/02/25 21:00 release lactobacillus combination no.9 4 4,000 mmu cells PO DAILY 02/26/25 04/03/25 04/03/25 06:00 billion cell capsule (Adult 50 Plus Probiotic) cholecalciferol (vitamin D3) 50 50 mcg PO DAILY 03/25/25 04/03/25 04/03/25 06:00 mcg (2,000 unit) capsule (Vitamin D3) gabapentin 100 mg capsule 100 mg PO HS 03/25/25 04/03/25 04/02/25 21:00 (Neurontin) metformin 500 mg tablet 1,000 mg PO QPM 03/25/25 04/03/25 03/31/25 pramipexole 0.5 mg tablet 0.5 mg PO BID 30 days #60 tabs 03/26/25 04/03/25 04/02/25 21:00 rosuvastatin 5 mg tablet (Crestor) 5 mg PO QAM 03/26/25 04/03/25 04/02/25 07:30 magnesium 200 mg tablet 200 mg PO [id number] 04/03/25 04/03/25 04/01/25 oxycodone-acetaminophen 5 mg-325 1 - 2 tab PO .q4-6h PRN pain, for 04/03/25 Unknown mg tablet (Percocet) initial therapy, max 6 tabs per day #15 tabs Active Medications Generic Name Dose Route Start Last Admin Trade Name Freq PRN Reason Stop Dose Admin Anastrozole 1 mg 04/04/25 09:00 04/09/25 11:13 Anastrozole 1 Mg Tab PO 05/04/25 08:59 1 mg DAILY LEYDI Administration Carvedilol 12.5 mg 04/03/25 17:00 04/10/25 09:33 Carvedilol 12.5 Mg Tab PO 05/03/25 16:59 Not Given BIDM LEYDI Enoxaparin Sodium 40 mg 04/06/25 11:00 04/10/25 09:26 Enoxaparin Inj 40 Mg/0.4 Ml Syr SQ 05/06/25 10:59 40 mg QAM LEYDI Administration Gabapentin 100 mg 04/03/25 21:00 04/09/25 20:35 Gabapentin 100 Mg Cap PO 05/03/25 20:59 Not Given HS LEYDI Hydralazine HCl 10 mg 04/06/25 08:03 04/06/25 13:43 Hydralazine Hcl 20 Mg/Ml Vial IV 05/06/25 08:14 10 mg Q6H PRN Administration Hypertension Promethazine HCl 25 mg in 51 mls @ 204 mls/hr 04/05/25 02:18 04/09/25 22:37 Phenergan IV 05/05/25 02:17 Infused Q6H PRN Infusion Nausea And Vomiting Pantoprazole Sodium 40 mg in 10 mls @ 5 mls/min 04/06/25 14:45 04/10/25 08:37 Protonix IV 05/06/25 14:44 5 mls/min DAILY LEYDI Administration Lactated Ringer's 1,000 mls @ 70 mls/hr 04/09/25 16:00 04/10/25 05:40 Lr IV 04/12/25 15:59 70 mls/hr .[id number] LEYDI Administration Amino Acids 1,055 ml/ 1,055 mls @ 43 mls/hr 04/09/25 16:00 04/09/25 15:13 Nutrition (Parenteral) IV 04/10/25 15:59 43.9 mls/hr .Q24H LEYDI Administration Protocol Insulin Aspart 0 units 04/10/25 12:00 04/10/25 12:35 Insulin Aspart Per Unit Charge SC 05/09/25 16:29 Not Given Q6 LEYDI Ketorolac Tromethamine 15 mg 04/06/25 08:00 04/09/25 23:36 Ketorolac Tromethamine 15 Mg/Ml Vial IV 04/11/25 07:59 15 mg Q6H PRN Administration Pain Levothyroxine Sodium 175 mcg 04/04/25 06:30 04/10/25 05:40 Levothyroxine Sodium 175 Mcg Tablet PO 05/04/25 06:29 Not Given [id number] LEYDI Lorazepam 0.5 mg 04/06/25 17:20 04/10/25 10:29 Lorazepam 2 Mg/1 Ml Vial IV 05/06/25 17:19 0.5 mg Q6H PRN Administration Anxiety/Agitation Morphine Sulfate 2 mg 04/03/25 09:52 04/06/25 14:29 Morphine Sulfate 2 Mg/Ml Carp IV 04/17/25 09:51 2 mg Q3H PRN Administration Pain (1,2,3,4,5) & Pre PT Morphine Sulfate 4 mg 04/03/25 09:52 04/09/25 20:36 Morphine Sulfate 4 Mg/Ml 1 Ml Carp\\Vial IV 04/17/25 09:51 4 mg Q3H PRN Administration Pain (6,7,8,9,10) Ondansetron HCl 4 mg 04/04/25 13:05 04/09/25 18:31 Ondansetron Inj 2 Mg/Ml 2 Ml Vial IV 05/04/25 13:04 4 mg Q6H PRN Administration Nausea And Vomiting Pramipexole Dihydrochloride 0.5 mg 04/08/25 15:00 04/09/25 20:36 Pramipexole Dihydrochlo 0.5 Mg Tab PO 05/07/25 08:59 0.5 mg DAILY@1500,2100 LEYDI Administration Rosuvastatin Calcium 5 mg 04/04/25 09:00 04/09/25 08:47 Rosuvastatin Calcium 5 Mg Tab PO 05/04/25 08:59 Not Given QAM LEYDI Torsemide 10 mg 04/04/25 09:00 04/09/25 08:47 Torsemide 10 Mg Tab PO 05/04/25 08:59 Not Given DAILY LEYDI NPO Date Last Intake of Fluids: 04/02/25 Time Last Intake of Fluids: 22:00 Date Last Intake of Solids: 04/02/25 Time Last Intake of Solids: 22:00 Past Medical History Medical History (Updated 04/10/25 @ 09:35 by Kahlil Isabel, ) History of paroxysmal supraventricular tachycardia Per cardio records Peripheral neuropathy Bilateral Hands & Feet Fatigue Chronic per cardio records -negative nuclear stress test 2019 SCC (squamous cell carcinoma) Per derm records Restless leg syndrome Migraines History of small bowel obstruction 11/2023 - s/p ventral hernia repair Prediabetes Oral History of anesthesia problem - After procedure 11/2023 - had difficulty breathing and catching breath. "It wasn't when I was in recovery, it was when I was in my room." - Per review of [facility] progress notes/discharge summary during 11/2023 admission s/p ventral hernia repair- no mention of breathing issues; patient does have DAGMAR- non compliant with CPAP - "Years ago when I had a D&C - I had a hard time coming out of it, don't remember ride home from the hospital" Sleep apnea CPAP; "hasn't used in 2 weeks due to tingling in her cheek from her mask/magnet, waiting for special pads to arrive" History of COVID-19 11/2021, home test, not hosp; "bad" congestion, chills, fatigue> resolved History of Mohs micrographic surgery for skin cancer BCC forehead CHF (congestive heart failure) [facility] - Chronic HFpEF EF 55-59% per 2020 ECHO Basal cell carcinoma of face Forehead Gastroesophageal reflux disease Hiatal hernia Breast cancer, right Biopsy on 07/06/21; s/p lumpectomy and XRT DDD (degenerative disc disease) Lumbar radiculopathy Lumbar spinal stenosis Hypothyroidism Hypertension Past Family History Family History Father , 90yo Laryngeal cancer Restless leg syndrome Sister Restless leg syndrome Brother Restless leg syndrome Hypertension Grandmother (Maternal) Cardiac disorder Grandmother (Paternal) Cardiac disorder Aunt Breast cancer maternal Mother , 90yo Alzheimer disease Unknown Colorectal cancer maternal cousin 50s, paternal cousin 50s. Brother Depression Restless leg syndrome Brother No problems noted. Brother Aplastic anemia Daughter No problems noted. Daughter Fainting Frequently but unknown cause Other No significant family history Denies family history of Ovarian cancer Past Surgical History Surgical History (Updated 04/08/25 @ 08:23 by Kahlil Isabel DO) H/O inguinal hernia repair Open Ventral Hernia Repair- Kahlil Isabel DO 11-24-23 Hx of colonoscopy History of carpal tunnel surgery of left wrist History of surgery "Turbinate resection" Status post right breast lumpectomy 08/17/21 Dr. Leong S/P dilation and curettage H/O foot surgery Bilateral H/O shoulder surgery 2015 - Bilateral arthroscopic S/P tonsillectomy and adenoidectomy History of arthroplasty of left knee "09/21/16 Dr. Villavicencio" S/P left knee arthroscopy "2006" History of arthroplasty of right knee "2013 Dr. Villavicencio" Social History Smoking Status: Never smoker Do You Dip or Chew Tobacco: No Hx Alcohol Use: Yes Alcohol type: wine alcohol intake frequency: a few times a month Hx Substance Use: No substance use type: does not use Physical Exam Vital Signs Last Vital Signs Temp 97.9 F 04/10/25 07:13 Pulse 80 04/10/25 07:13 Resp 16 04/10/25 07:13 BP 135/84 04/10/25 07:13 Pulse Ox 92 04/10/25 07:13 O2 Del Method Room Air 04/10/25 07:13 O2 Flow Rate 2 04/06/25 19:55 Testing Laboratory Results 04/10/25 06:02 04/10/25 06:02 Hemoglobin A1c 6.4 % (4.5-5.6) H 04/04/25 08:01 04/10/25 04/10/25 11:49 08:41 POC Glucose 118 H 122 H Electrocardiogram Date: 03/21/25 Normal sinus rhythm at 65 bpm Chest X-Ray Date: 05/05/24 FINDINGS: Cardiac silhouette is enlarged. Large hiatal hernia. Chronic right hemidiaphragmatic elevation. Mild left basilar atelectasis. No pneumothorax or pleural effusion. Bones appear intact. IMPRESSION: 1. Cardiomegaly without acute process. 2. Large hiatal hernia. Echocardiogram Date: 07/12/21 LVEF 55-59% (normal) Borderline concentric LVH LV wall motion is normal Left atrium moderately enlarged Grade 1 DD Mild MR. Mild TR No evidence of pulmonary hypertension Compared to prior study 06/28/2020no significant changes found Stress Test Date: 07/22/21 Type: nuclear Gated SPECT imaging reveals normal myocardial thickening and wall motion LVEF was calculated >65% Lexiscan nuclear cardiac stress test negative for ischemia Other Testing Chest CTA 05/05/24= No pulmonary emboli identified. No pleural effusion or airspace consolidation to suggest pneumonia. Large hiatal hernia.
[2025-04-10] MEDS ORDERED: ATROPINE SULFATE 0.1 MG/ML 10ML SYR IV PRN (13:39)
[2025-04-10] MEDS ORDERED: MIDAZOLAM HCL 1 MG/ML 2ML VIAL ONE (13:40)
[2025-04-10] MEDS: CLINDAMYCIN/D5W 900 MG/50 ML BAG IV ONE (14:04)
--- NOTE | 2025-04-10 14:21 | Pharmacy Report ---
Pharmacy Glycemic Short Note 2 - Date of Service April 10, 2025 - Glycemic Short BSG Results (Last 24 hours): 04/09/25 04/09/25 04/10/25 16:34 20:03 00:50 Glucose POC Glucose 84 98 112 H 04/10/25 04/10/25 04/10/25 06:02 08:41 11:49 Glucose 126 H POC Glucose 122 H 118 H 04/10/25 13:52 Glucose POC Glucose 99 OUTPATIENT ANTIDIABETIC REGIMEN: * metformin 1 g PO qPM HbA1c: 6.4% (04/04/25) ASSESSMENT: 04/10 * Holly only required 1 units of bolus insulin yesterday. BSGs were mostly all below goal. * Fasting BSG was 122mg/dL. Will continue current bolus insulin regimen. No basal insulin is needed at this time. * She was started on PPN yesterday at 43ml/hr so suspect that her blood glucose will steadily start increasing. 04/07 * Holly received 2 units of insulin yesterday (both were bolus). Of note, she reportedly has refused several doses of insulin. Despite this, most of her BSGs were only slightly above goal yesterday * Fasting BSG was 127mg/dL this morning. Will continue currently basal/bolus insulin regimens without change 04/04 * SM is a 74 year old female POD #1 s/p laparoscopic ventral hernia repair * Received 8 mg IV dexamethasone in OR, no ongoing steroids ordered * Blood sugars have so far been reasonably controlled with only bolus orders on at this time (no insulin has been administered thus far) * Possible discharge today vs. tomorrow PLAN FOR INPATIENT GLYCEMIC CONTROL: * Hold outpatient oral diabetes medications * Basal insulin * None * Bolus insulin * NovoLog per scale ACHS or Q6hrs while NPO * Goal Range: Low 110 mg/dL - High 140 mg/dL * Correction Factor: 45 mg/dL/unit * Nutritional / Prandial insulin per carb ratio: NONE
[2025-04-10] MEDS: CLINDAMYCIN 900 MG/D5W 50 ML BAG IV ONE (15:20)
[2025-04-10] MEDS: BUPIVACAINE/EPINEPHRINE 0.5% MPF 1:200,000 30 ML VIAL ONE (15:20)
--- NOTE | 2025-04-10 15:26 | Operative Report ---
PG Post Operative Report Pre & Post Diagnosis Operation Date: 04/10/25 07:00 Pre-Op Diagnosis: Small bowel obstruction Post-Op Diagnosis: Small bowel obstruction;adhesion I identified the patient and participated in the time-out.: Yes Procedure Operation Date: 04/10/25 07:00 Actual Procedures p Diagnostic Laparoscopy, Enterolysis, Release of Small Bowel Obstruction(Not Applicable) - Kahlil Isabel DO Surgeon Kahlil Isabel DO Cafeteria Attendant oren Siddiqi Estimated Blood Loss 5 Findings Consistent with Post-Op Diagnosis Specimens none Description of Procedure After informed consent was obtained the patient was taken to the operating room and placed in supine position. After successful intubation a Mendoza catheter was placed. Anesthesia tried several times to place an NG tube unsuccessfully. The abdomen was then sterilely prepped and draped in usual fashion. I began by making an incision through a prior 5 mm trocar site in the left upper quadrant. This was carried down through the soft tissue using cautery. Anterior fascia was opened using cautery and two #0 Vicryl stay sutures were placed. Peritoneum was entered using blunt finger penetration and a finger sweep performed. A 12 mm Duque trocar was placed and the abdomen was insufflated to 18 mmHg. Laparoscope was inserted. We immediately encountered dilated small bowel throughout the abdomen. The previous mesh/hernia repair was intact and looked good. There was an associated seroma but did not appear infected. There was a single adhesion to the undersurface of the mesh however this did not appear to be causing an obstruction. I decided to place a right upper quadrant 5 mm trocar to get a look around the abdomen from a different angle. Once we did this we immediately noted the source of the obstruction. Her prior upper midline incision had a loop of small bowel through the peritoneal defect with a hairpin turn causing an acute obstruction. There was proximal dilation and distal decompression of the small bowel. At this point I reopened at that incision from the prior surgery. Initially I felt that one of the closing sutures had likely caught part of the small bowel causing the issue. However I was able to cut the 0 Vicryl closing the suture from the prior procedure and this did not relieve the obstruction. I was able to place a finger and perform a gentle finger fractionation of an adhesive band. Essentially the small bowel had got stuck between the peritoneal defect and the fascial defect and had adhesed itself and a hairpin turn. Once I was able to free this up and placed it back into the abdomen we then reclosed the fascia using 0 Ethibond in multiple interrupted sutures. At this point we re-insufflated the abdomen and reinserted the camera. I did take down the previously mentioned single adhesion to the undersurface of the mesh for completeness. No other abnormality was apparent. The bowel itself looked healthy where it had been obstructed. There was no ischemia and no serosal damage. At this point we removed the trocars desufflated the abdomen. The fascia of the camera port was closed using 0 Vicryl in a [id number] fashion. All the wounds were irrigated. The 2 larger incisions were closed using 3-0 Vicryl for deep layers and 4 Monocryl for skin. The smaller 5 mm trocar site was closed with 4-0 Monocryl. Marcaine with epinephrine was injected around for postoperative analgesia and skin glue used as a dressing. Patient was awakened extubated and transferred recovery in st able condition. My nurse practitioner was present for the entire case was instrumental in assisting with access to the abdomen running the camera for me, wound closure and dressing placement. I attest to the content of the Intraoperative Record and any orders documented therein. Any exceptions are noted below.
[2025-04-10] MEDS: ONDANSETRON INJ 2 MG/ML 2 ML VIAL IV PRN (16:13)
--- NOTE | 2025-04-10 16:16 | Anesthesiology Progress Note ---
Date of Service April 10, 2025 Anesthesia Post Procedure Vital Signs Vital Signs: Temp Pulse Pulse Resp BP Pulse Ox O2 Del Method 04/10/25 16:05 86 22 127/87 93 Oxymask 04/10/25 15:55 87 18 149/94 H 96 Oxymask 04/10/25 15:48 36.0 C L 89 23 141/95 H 96 Oxymask 04/10/25 13:17 37 C 78 20 148/81 H 93 Room Air 04/10/25 07:13 36.6 C 80 16 135/84 92 Room Air 04/09/25 19:30 36.4 C L 84 16 160/92 H 95 Room Air O2 Flow Rate 04/10/25 16:05 3 04/10/25 15:55 6 04/10/25 15:48 6 04/10/25 13:17 04/10/25 07:13 04/09/25 19:30 Pain Intensity Abdomen: Pain Intensity: 6 Transfer of Care Handoff Completed per policy Notes Mental Status: alert / awake / arousable Patient Amnestic to Procedure: Yes Nausea / Vomiting: adequately controlled Pain: adequately controlled Airway Patency, RR, SpO2: stable & adequate BP & HR: stable & adequate Hydration State: stable & adequate Anesthetic Complications: no major complications apparent and Pt Satisfied with anesthetic care
[2025-04-10] MEDS: PERIPHERAL TPN IV SCH (16:42)
[2025-04-10] MEDS: [UNRECOGNIZED DRUG - OTHER] IV SCH (16:42)
[2025-04-10] MEDS: POTASSIUM CHLORIDE / WTR 10 MEQ/100 ML PLCT IV SCH (17:35)
[2025-04-11 07:03] LABS: Hematocrit (blood only) 30.0 % (37.0-47.0); Hemoglobin 9.7 g/dl (12.0-16.0); Mean Corpuscular Hemoglobin 29.0 pg (25.0-34.0); Mean Corpuscular Volume 89.6 fL (80.0-100.0); Platelet Count 236 K/uL (130-400); RDW Standard Deviation 44.8 fL (36.4-46.3); Red Blood Count 3.35 M/uL (4.20-5.40); White Blood Count 6.22 K/ul (4.8-10.8)
[2025-04-11 07:19] VITALS: BP 149/86; RESP 18; TEMP 98.1
[2025-04-11 07:22] LABS: Anion Gap 6.0 (3-11); Blood Urea Nitrogen 28.0 mg/dl (6-23); Calcium 7.7 mg/dl (8.6-10.3); Carbon Dioxide 31.0 mmol/L (21-32); Chloride 101.0 mmol/L (98-107); Creatinine Clr Calc Pharmacy 92.9 ml/min; Glucose 117.0 mg/dl (70-99(Fasting)); Magnesium 1.9 mg/dl (1.7-2.4); Potassium 3.9 mmol/L (3.5-5.1); Sodium 138.0 mmol/L (136-145)
[2025-04-11 08:24] LABS: Immature Granulocytes # (auto) 0.27 K/uL (0.01-0.20); Immature Granulocytes % (auto) 4.3 %; Polychromasia 1+
--- NOTE | 2025-04-11 09:15 | Surgery Progress Note ---
<Statement entered by Eneida Skaggs, - 04/11/25 10:22> I have seen and examined this patient with the surgical [employer] this am. I agree with this plan. Date of Service April 11, 2025 Assessment & Plan (1) Small bowel obstruction: Plan: POD 1 Diagnostic Laparoscopy, Enterolysis, Release of Small Bowel Obstruction No n/v overnight , +flatus start low fiber diet , will d/c PPN if tolerates OOB ambulate VSS , with HTN 149/86 possible d/c later this evening vs tomorrow if doing well pt seen and examined with Dr Skaggs Admission and Anticipated Discharge Date Admission Date: April 04, 2025 Subjective pt denies abd pain, n/v, cp, sob +flatus feeling hungry Review of Systems Constitutional: no fever and no chills Respiratory: no dyspnea Cardiovascular: no chest pain Gastrointestinal: no abdominal pain, no nausea and no vomiting Psychiatric: no confusion Physical Exam Constitutional: cooperative and comfortable; no acute distress Respiratory: normal respiratory effort and able to speak in complete sentences; no respiratory distress Gastrointestinal (Abdomen): Inspection/Auscultation: + abdominal surgical incision (cdi); abdomen not distended Percussion/Palpation: abdomen soft Psychiatric: A+Ox3, euthymic affect Results & Data Vital Signs (Past 12 Hours) Vital Signs Temp Pulse Resp BP BP Pulse Ox O2 Del Method 04/11/25 07:19 Nasal Cannula 04/11/25 07:16 98.1 F 78 18 149/86 H 94 Nasal Cannula 04/11/25 05:24 98.2 F 74 16 134/83 97 Nasal Cannula 04/11/25 03:15 98.1 F 74 18 111/69 94 Nasal Cannula 04/10/25 22:42 98.2 F 77 16 104/71 92 Nasal Cannula O2 Flow Rate 04/11/25 07:19 3 04/11/25 07:16 3 04/11/25 05:24 3 04/11/25 03:15 3 04/10/25 22:42 3 Results CBC w Diff Results: RBC 3.35 M/uL (4.20-5.40) L 04/11/25 WBC 6.22 K/ul (4.8-10.8) 04/11/25 Hgb 9.7 g/dl (12.0-16.0) L 04/11/25 Hct 30.0 % (37.0-47.0) L 04/11/25 MCV 89.6 fL (80.0-100.0) 04/11/25 MCH 29.0 pg (25.0-34.0) 04/11/25 MCHC 32.3 g/dL (32.0-36.0) 04/11/25 RDW Standard Deviation 44.8 fL (36.4-46.3) 04/11/25 RDW Coefficient of Variation 13.8 % (11.5-14.5) 04/11/25 Plt Count 236 K/uL (130-400) 04/11/25 MPV 9.4 fL (9.4-12.4) 04/11/25 Neutrophils (%) (Auto) 49.6 % 04/11/25 Lymphocytes (%) (Auto) 22.0 % 04/11/25 Monocytes # (Auto) 1.25 K/uL (0.11-0.59) H 04/11/25 Eosinophils # (Auto) 0.22 K/uL (0.00-0.50) 04/11/25 Immature Granulocyte % (Auto) 4.3 % 04/11/25 Neutrophils # (Auto) 3.08 K/uL (1.40-6.50) 04/11/25 Lymphocytes # (Auto) 1.37 K/uL (1.20-3.40) 04/11/25 Monocytes # (Auto) 1.25 K/uL (0.11-0.59) H 04/11/25 Eosinophils # (Auto) 0.22 K/uL (0.00-0.50) 04/11/25 Basophils # (Auto) 0.03 K/uL (0.00-0.20) 04/11/25 Immature Granulocyte # (Auto) 0.27 K/uL (0.01-0.20) H 04/11 Polychromasia 1+ 04/11/25 Toxic Granulation 1+ 04/10/25 Toxic Vacuolation 1+ 04/08/25 Dohle Bodies 1+ 04/07/25 PG Care Time/CCT Total # of Minutes Spent Total Time Spent with Patient: Total time spent is greater than 50% in coordination of care (as documented) at patient's floor/unit and/or counseling patient: Coding Level of Care Code 32863 Post Operative Follow-Up Diagnoses Small bowel obstruction K56.609
[2025-04-11 11:51] VITALS: PULSE 81; O2SAT 93
[2025-04-11] MEDS ORDERED: Nursing to Pharmacy Communication SCH (13:00)
[2025-04-11] MEDS ORDERED: INSULIN ASPART PER UNIT CHARGE SC SCH (16:30)
== END 2025-04-11 16:48 | disposition home or self-care (01) | DRG 336 ==
LOC: 3W 06:55 → ASU 06:55

== ENCOUNTER 2025-04-13 20:20 | Inpatient (IN) ==
--- NOTE | 2025-04-13 20:50 | Emergency Department Note ---
Impression & Plan SBO (small bowel obstruction), Nausea vomiting and diarrhea, Acute hypokalemia ED Provider Note NAME: LACI REES AGE: 74 SEX: F : 1950 ARRIVES VIA: Walk-In INFORMANT: Patient, ED PROVIDER(S): Yung Woodard MD CHIEF COMPLAINT: Abdominal pain, nausea vomiting diarrhea, fever MEDICAL DECISION MAKING: Patient presents with above. Not a true fever at home but was 99. However not a core temp. IV was established and blood work was obtained along with blood cultures lactate IV fluids IV Tylenol and IV Zofran. CT abdomen pelvis ordered. Patient's blood work normal white count hemoglobin and platelet count. The patient's kidney function unremarkable hypokalemia noted with a potassium of 3.1. Patient was ordered 10 mEq IV potassium chloride. BSG 126 nonfasting not DKA LFTs and lipase are normal. Review of the patient's CT abdomen pelvis does show concern for small bowel obstruction. I did inform the patient the findings. The patient is not had any further vomiting. NG tube was ordered in light of the patient's system from earlier in the day. I did message the on- call general surgeon Dr. Rick Davenport who agreed with plan of care. Patient currently hemodynamically stable and is feeling improved. Patient did have an episode of vomiting with initial placement of the NG tube. Review of the initial KUB did show that the NG tube was initially within the esophagus was removed and replaced with successful placement into the stomach. It is per the on-call hospitalist service Dr. Montero the patient was admitted to the medicine service. Did reassess the patient the patient stated that she was having some mild nausea. The patient was ordered 500 of IV fluid at 125 an hour and additional IV Zofran. Patient was advised not to eat or drink and was admitted. Discussion w/ other healthcare providers: Dr. Rick Davenport general surgery Dr. Montero inpatient medicine service Prior /Outside records reviewed: I reviewed part of the surgery progress note from April 11. The patient is postop day 1 from diagnostic laparoscopy anterior lysis release of a small bowel obstruction. Patient did have a ventral hernia repair completed on May 03. Reviewed a progress note from [facility] which showed that the patient was having emesis did have an NG placed due to concerns for ileus versus SBO. Differential diagnosis: Appendicitis, ovarian cyst, ovarian torsion, ectopic , TOA, PID, diverticulitis, UTI, obstruction, inflammatory bowel disease, renal colic, PUD, pancreatitis, biliary pathology, hernia, volvulus, constipation, as well as other pathologies were considered. Diagnostics, as interpreted by me: ECG: Normal sinus rhythm, rate of 87, normal [place] and QRS, prolonged QTc, normal axis. No obvious STEMI. Cardiac monitoring: An order was placed for continuous cardiac monitoring. The monitor shows a rate of 75 with sinus rhythm. Patient was placed on pulse oximetry Medical decision rules: None Imaging studies: I informally interpreted the patient's CT abdomen pelvis that showed concern for small bowel obstruction with formal report to follow. HPI: Patient presents due to concern for abdominal pain nausea vomiting diarrhea. The patient states that her symptoms began this morning. She states that she felt generally unwell yesterday but was not having any vomiting or diarrhea. The patient states that she has vomited numerous times is also diarrhea. The patient does not think that she has had antibiotics but was recently discharged in the hospital after having prior surgery. Patient did have a prior small bowel obstruction status post procedure with Dr. Isabel that occurred back on April 10. Patient was admitted on April 03. Patient denies any changes in diet no alcohol tobacco or drug use. No cough. Patient denies any chills no urinary symptoms. PAST MEDICAL HISTORY: See Below PAST SURGICAL HISTORY: See Below SOCIAL HISTORY: See Below HOME MEDICATIONS: See Below ALLERGIES: See Below VITALS: See Below PHYSICAL EXAMINATION: GENERAL: Mildly ill but nontoxic in appearance. EYE EXAM: Normal conjunctiva. PERRL, no anisocoria and EOM's grossly intact w/o pain. OROPHARYNX: Dry mucus membranes, grossly normal dentition. NECK: Trachea midline, no stridor. LUNGS: Clear to auscultation. Normal chest wall mechanics. HEART: NSR, no MRG. ABDOMEN: Abdomen soft, mid abdominal pain, bruising noted to the left abdomen. No masses, no rebound or guarding. BACK: No CVA TTP. SKIN: No rashes and no bruising. UPPER EXTREMITIES: Upper extremities are grossly normal. LOWER EXTREMITIES: Grossly normal, trace pretibial edema without calf pain or erythema. NEURO EXAM: Awake and alert, follows commands, no obvious facial asymmetry, normal speech, moves all 4 extremities. Past Med/Surg History Problem List (Updated 04/13/25 @ 23:47 by Yung Woodard MD) Acute hypokalemia (Acute) Nausea vomiting and diarrhea (Acute) SBO (small bowel obstruction) (Acute) Small bowel obstruction S/P recurrent ventral herniorrhaphy (04/03/25) Laparoscopic Recurrent Ventral Hernia Repair with Mesh(Not Applicable) - Kahlil Isabel, DO Postoperative ileus Morbid obesity Recurrent ventral hernia with incarceration H/O ventral hernia repair (11/24/23) Open Ventral Hernia Repair(Not Applicable) - Kahlil Isabel, DO Ventral hernia Small bowel obstruction (Acute) 2023 Gastritis Anemia Encounter for pre-operative examination SCC (squamous cell carcinoma) Malignant neoplasm of central portion of right breast in female, estrogen receptor positive (Chronic 07/06/21) Carpal tunnel syndrome, left Idiopathic polyneuropathy Restless leg syndrome Migraine hx Recurrent ventral hernia reason for procedure 04/03/25 [facility] Endometrial hyperplasia hx ASCUS favor benign 06/12/07; 05/2006 Medical History History of paroxysmal supraventricular tachycardia Per cardio records Peripheral neuropathy Bilateral Hands & Feet Fatigue Chronic per cardio records -negative nuclear stress test 2019 SCC (squamous cell carcinoma) Per derm records Restless leg syndrome Migraines History of small bowel obstruction 11/2023 - s/p ventral hernia repair Prediabetes Oral History of anesthesia problem - After procedure 11/2023 - had difficulty breathing and catching breath. "It wasn't when I was in recovery, it was when I was in my room." - Per review of [facility] progress notes/discharge summary during 11/2023 admission s/p ventral hernia repair- no mention of breathing issues; patient does have DAGMAR- non compliant with CPAP - "Years ago when I had a D&C - I had a hard time coming out of it, don't remember ride home from the hospital" Sleep apnea CPAP; "hasn't used in 2 weeks due to tingling in her cheek from her mask/magnet, waiting for special pads to arrive" History of COVID-19 11/2021, home test, not hosp; "bad" congestion, chills, fatigue> resolved History of Mohs micrographic surgery for skin cancer BCC forehead CHF (congestive heart failure) [facility] - Chronic HFpEF EF 55-59% per 2020 ECHO Basal cell carcinoma of face Forehead Gastroesophageal reflux disease Hiatal hernia Breast cancer, right Biopsy on 07/06/21; s/p lumpectomy and XRT DDD (degenerative disc disease) Lumbar radiculopathy Lumbar spinal stenosis Hypothyroidism Hypertension Surgical History H/O inguinal hernia repair Open Ventral Hernia Repair- Kahlil Isabel, DO 11-24-23 Hx of colonoscopy History of carpal tunnel surgery of left wrist History of surgery "Turbinate resection" Status post right breast lumpectomy 08/17/21 Dr. Leong S/P dilation and curettage H/O foot surgery Bilateral H/O shoulder surgery 2014 - Bilateral arthroscopic S/P tonsillectomy and adenoidectomy History of arthroplasty of left knee "09/21/16 Dr. Villavicencio" S/P left knee arthroscopy "2006" History of arthroplasty of right knee "2013 Dr. Villavicencio" Family History Father , 90yo Laryngeal cancer Restless leg syndrome Sister Restless leg syndrome Brother Restless leg syndrome Hypertension Grandmother (Maternal) Cardiac disorder Grandmother (Paternal) Cardiac disorder Aunt Breast cancer maternal Mother , 90yo Alzheimer disease Unknown Colorectal cancer maternal cousin 50s, paternal cousin 50s. Brother Depression Restless leg syndrome Brother No problems noted. Brother Aplastic anemia Daughter No problems noted. 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 Feels Safe at Home: Yes Diet: regular caffeine: Yes (2 "Yetis" of coffee daily) during the past year weight has: remained stable Assistive Devices: Stair Lift and Walker Allergies Allergies Allergy/AdvReac Type Severity Reaction Status Date / Time lisinopril Allergy Severe Throat Verified 04/03/25 07:23 Swelling, Shortness of Breath Penicillins Allergy Severe Shortness Verified 04/03/25 07:23 of Breath latex Allergy Intermediate Rash Verified 04/03/25 07:23 sulfamethoxazole Allergy Mild Rash Verified 04/03/25 07:23 [From Bactrim] trimethoprim [From Bactrim] Allergy Mild Rash Verified 04/03/25 07:23 atorvastatin AdvReac Intermediate Jittery, Verified 04/03/25 07:23 Unable to Sleep empagliflozin AdvReac Intermediate Abdominal Verified 04/03/25 07:23 [From Jardiance] Pain Home Meds Home Medications Medication Instructions Recorded Confirmed anastrozole 1 mg tablet 1 mg PO DAILY 11/24/23 04/03/25 carvedilol 12.5 mg tablet 12.5 mg PO BID 11/24/23 04/03/25 levothyroxine 175 mcg tablet 175 mcg PO UD 11/24/23 04/03/25 torsemide 10 mg tablet 10 mg PO DAILY 11/24/23 04/03/25 oxycodone-acetaminophen 5 mg-325 See Rx Instructions .Route .COMPLEX 05/05/24 04/03/25 mg tablet lactobacillus combination no.9 4 4,000 mmu cells PO DAILY 02/26/25 04/03/25 billion cell capsule (Adult 50 Plus Probiotic) cholecalciferol (vitamin D3) 50 50 mcg PO DAILY 03/25/25 04/03/25 mcg (2,000 unit) capsule (Vitamin D3) gabapentin 100 mg capsule 100 mg PO HS 03/25/25 04/03/25 (Neurontin) metformin 500 mg tablet 1,000 mg PO QPM 03/25/25 04/03/25 rosuvastatin 5 mg tablet (Crestor) 5 mg PO QAM 03/26/25 04/03/25 magnesium 200 mg tablet 200 mg PO 4XWK 04/03/25 04/03/25 Previous Rx's Medication Instructions Recorded omeprazole 20 mg capsule,delayed 20 mg PO DAILY #90 caps 12/03/24 release pramipexole 0.5 mg tablet 0.5 mg PO BID 30 days #60 tabs 03/26/25 oxycodone-acetaminophen 5 mg-325 1 - 2 tab PO .q4-6h PRN pain, for 04/03/25 mg tablet (Percocet) initial therapy, max 6 tabs per day #15 tabs Results & Data (ED) Vital Signs Vital Signs - 24 hr 04/13/25 20:26 04/13/25 20:43 04/13/25 20:48 Temperature 37.3 C Temperature Source Oral Pulse Rate 93 H 79 86 Pulse Rate [Finger] Pulse Rhythm Regular Respiratory Rate 22 Blood Pressure 160/102 H Blood Pressure [Right Arm] Blood Pressure Mean 121 Blood Pressure Mean [Right Arm] Pulse Oximetry 94 91 Oxygen Delivery Method Room Air Room Air Sepsis Recent Fever Within 48 Hours Yes Sepsis New/Unexplained Change in Mental Status No Sepsis Action Taken by Nursing No Action Required 04/13/25 21:41 04/13/25 23:31 Temperature Temperature Source Pulse Rate Pulse Rate [Finger] 77 74 Pulse Rhythm Respiratory Rate 18 18 Blood Pressure Blood Pressure [Right Arm] 125/90 125/90 Blood Pressure Mean Blood Pressure Mean [Right Arm] 101 101 Pulse Oximetry 94 93 Oxygen Delivery Method Room Air Room Air Sepsis Recent Fever Within 48 Hours Sepsis New/Unexplained Change in Mental Status Sepsis Action Taken by Group Home Medications Current Medication List: was personally reviewed by me Laboratory Data Attestation: I reviewed the patient's lab results. 04/13/25 20:48 04/13/25 20:48 Lab Results 04/13/25 04/13/25 04/13/25 Range/Units 20:48 20:57 Unknown WBC 8.83 (4.8-10.8) K/ul RBC 4.10 L (4.20-5.40) M/uL Hgb 12.0 (12.0-16.0) g/dl POC Hgb 12.6 (12.0-16.0) g/dl Hct 35.6 L (37.0-47.0) % POC Hct 37 (37-47) % MCV 86.8 (80.0-100.0) fL MCH 29.3 (25.0-34.0) pg MCHC 33.7 (32.0-36.0) g/dL RDW Std Deviation 43.4 (36.4-46.3) fL RDW Coeff of Steven 13.8 (11.5-14.5) % Plt Count 355 (130-400) K/uL MPV 9.2 L (9.4-12.4) fL Immature Gran % (Auto) 1.7 % Neut % (Auto) 65.8 % Lymph % (Auto) 17.8 % [place] % (Auto) 12.7 % Eos % (Auto) 1.7 % Baso % (Auto) 0.3 % Neut # (Auto) 5.81 (1.40-6.50) K/uL Lymph # (Auto) 1.57 (1.20-3.40) K/uL [place] # (Auto) 1.12 H (0.11-0.59) K/uL Eos # (Auto) 0.15 (0.00-0.50) K/uL Baso # (Auto) 0.03 (0.00-0.20) K/uL Immature Gran # (Auto) 0.15 (0.01-0.20) K/uL PT 11.8 (9.0-12.0) Seconds INR 1.1 (0.9-1.1) POC Sodium 137 (135-144) mmol/L Sodium 138 (136-145) mmol/L POC Potassium 3.0 L (3.3-5.0) mmol/L Potassium 3.1 L (3.5-5.1) mmol/L POC Chloride 94 L (101-112) mmol/L Chloride 95 L (98-107) mmol/L Carbon Dioxide 31 (21-32) mmol/L POC Total CO2 27 (24-31) mmol/L Anion Gap 12 H (3-11) POC Anion Gap 19.0 (16-25) mmol/L POC BUN 20 H (7-18) mg/dl BUN 21 (6-23) mg/dl Creatinine 1.15 (0.6-1.2) mg/dl POC Creatinine 0.8 (0.6-1.3) mg/dl Est Cr Clr Drug Dosing 49.7 ml/min eGFR 49.37 BUN/Creatinine Ratio 18.3 (10-20) Glucose 126 H (70-99(Fasting)) mg/dl POC Glucose (other) 128 H (70-99) mg/dl Lactate 1.1 (0.4-2.0) mmol/L Calcium 8.6 (8.6-10.3) mg/dl POC Ioniz Calcium [place] 1.05 L (1.12-1.32) mmol/l Total Bilirubin 0.5 (0.2-1.0) mg/dl AST 24 (13-39) U/L ALT 29 (7-52) U/L Alkaline Phosphatase 63 (34-104) U/L Total Protein 6.6 (6.0-8.3) gm/dl Albumin 3.5 (3.4-5.0) gm/dl Globulin 3.1 (2.5-4.0) gm/dl Albumin/Globulin Ratio 1.1 (0.9-2) Lipase 22 (11-82) U/L Administered Medications Discontinued Medications Sodium Chloride (Nss) 1,000 mls @ 999 mls/hr IV .Q1H1M STA Stop: 04/13/25 21:43 Last Infusion: 04/13/25 21:58 Dose: Infused Documented By: Admin: 04/13/25 20:55 Dose: 999 mls/hr Documented By: KRISTOFER Acetaminophen (Ofirmev) 1,000 mg in 100 mls @ 400 mls/hr IV NOW STA Stop: 04/13/25 20:57 Last Infusion: 04/13/25 21:17 Dose: Infused Documented By: Admin: 04/13/25 20:55 Dose: 400 mls/hr Documented By: KRISTOFER Ioversol (Optiray 320 100ml) 90 ml IV ONCE ONE Stop: 04/13/25 21:12 Last Admin: 04/13/25 21:11 Dose: 90 ml Documented By: VADIM Ondansetron HCl (Ondansetron Inj 2 Mg/Ml 2 Ml Vial) 4 mg IV NOW STA Stop: 04/13/25 20:44 Last Admin: 04/13/25 20:55 Dose: 4 mg Documented By: KRISTOFER Imaging Data Radiologist's Impression: Abdomen/Pelvis CT 04/13/25 20:43 Exam(s): CT ABDOMEN + PELVIS With Contrast IV Amt: 90 ml optiray 329 EXAM: CT Abdomen and Pelvis With Intravenous Contrast CLINICAL HISTORY: Reason for exam: mid ab pain; recent SBO s/p surgery. TECHNIQUE: Axial computed tomography images of the abdomen and pelvis with intravenous contrast. CTDI is 28.14 mGy and DLP is 1542.04 mGy-cm. Automated exposure control was utilized for the study. A dose lowering technique was utilized adhering to the principles of ALARA. CONTRAST: Patient received 90 ml optiray 329 of IV contrast COMPARISON: CT 11/23/2023 FINDINGS: Mediastinum: Distended stomach with a large hiatal hernia. ABDOMEN: Liver: Unremarkable. Gallbladder and bile ducts: Unremarkable. Pancreas: Unremarkable. Spleen: Unremarkable. Adrenals: Unremarkable. Kidneys and ureters: Unremarkable. No obstructing stones. No hydronephrosis. Stomach and bowel: Diffuse dilatation of the small bowel measuring up to 4 cm. The colon is nondilated. Appearance is concerning for small bowel obstruction. Transition point favored in the right lower quadrant. PELVIS: Appendix: No findings to suggest acute appendicitis. Bladder: Unremarkable. Reproductive: Unremarkable as visualized. ABDOMEN and PELVIS: Intraperitoneal space: Small amount of free fluid within the pelvis. No free air. Bones/joints: No acute fracture. Soft tissues: Subcutaneous emphysema is likely postsurgical. Ventral seroma measuring 11 x 2.5 cm. Vasculature: Unremarkable. Lymph nodes: Unremarkable. IMPRESSION: 1. Diffuse dilatation of the small bowel measuring up to 4 cm. The colon is nondilated. Appearance is concerning for small bowel obstruction. Transition point favored in the right lower quadrant. 2. Ventral seroma measuring 11 x 2.5 cm. 3. Distended stomach with a large hiatal hernia. Electronically signed by: Juarez Batista MD 04/13/25 22:09 PM KUB X-Ray 04/13/25 22:28 Exam(s): XR KUB EXAM: XR Abdomen, 1 View CLINICAL HISTORY: Reason for exam: Ng tube placement. TECHNIQUE: Frontal supine view of the abdomen/pelvis. COMPARISON: No relevant prior studies available. FINDINGS: Lower thorax: Esophagogastric tube is kinked in the esophagus and oriented retrograde. Large hiatal hernia. Basilar atelectasis. Gastrointestinal tract: Dilated small bowel loops. IMPRESSION: 1. Esophagogastric tube is kinked in the esophagus and oriented retrograde. Needs to be repositioned. 2. Large hiatal hernia. 3. Dilated small bowel loops. Electronically signed by: Juarez Batista MD 04/13/25 23:34 PM KUB X-Ray 04/13/25 22:49 Exam(s): XR KUB EXAM: XR Abdomen, 1 View CLINICAL HISTORY: Reason for exam: ng placement. TECHNIQUE: Frontal supine view of the abdomen/pelvis. COMPARISON: Multiple same-day IMPRESSION: 1. Esophagogastric tube terminates within the stomach. 2. Large hiatal hernia. Electronically signed by: Juarez Batista MD 04/13/25 23:35 PM Discharge Plan Visit Data Chief Complaint: Abnormal Labs/Diagnostic Testing Stated Complaint: SURGERY COMPLICATIONS ED Provider: Yung Woodard Discharge Problem: SBO (small bowel obstruction), Nausea vomiting and diarrhea, Acute hypokalemia Patient Disposition: Admitted As Inpatient Condition: Good Forms Stand Alone Forms: My [facility] [employer] Prescriptions Prescriptions: No Action omeprazole 20 mg capsule,delayed release(DR/EC) 20 mg PO DAILY Qty: 90 1RF pramipexole 0.5 mg tablet 0.5 mg PO BID 30 Days Qty: 60 5RF Adult 50 Plus Probiotic 4 billion cell capsule 4,000 mmu cells PO DAILY Rx Instructions: administer with a meal levothyroxine 175 mcg tablet 175 mcg PO UD Rx Instructions: daily before breakfast 6 times a week. Skips Monday anastrozole 1 mg tablet 1 mg PO DAILY carvedilol 12.5 mg tablet 12.5 mg PO BID torsemide 10 mg tablet 10 mg PO DAILY oxycodone-acetaminophen 5-325 mg tablet See Rx Instructions .ROUTE .COMPLEX Rx Instructions: 1/4 of a tablet w/ Mirapex. Take 1/4 tab by mouth nightly w/ Mirapex cholecalciferol (vitamin D3) [Vitamin D3] 50 mcg (2,000 unit) Capsule 50 mcg PO DAILY gabapentin [Neurontin] 100 mg capsule 100 mg PO HS metformin 500 mg tablet 1,000 mg PO QPM rosuvastatin [Crestor] 5 mg Tablet 5 mg PO QAM magnesium 200 mg Tablet 200 mg PO 4XWK oxycodone-acetaminophen [Percocet] 5-325 mg tablet 1 - 2 tab PO .q4-6h PRN (Reason: pain, for initial therapy, max 6 tabs per day) Qty: 15 0RF Referrals Referrals: Jodi Garcia MD [Primary Care Provider] -
[2025-04-13] MEDS: ONDANSETRON INJ 2 MG/ML 2 ML VIAL IV STA ×2 (20:55→23:54)
[2025-04-13] MEDS: SODIUM CHLORIDE 0.9% 1,000 ML IV STA (20:55)
[2025-04-13] MEDS: ACETAMINOPHEN 1,000 MG/100 ML VIAL IV STA (20:55)
[2025-04-13 21:07] LABS: Hematocrit (blood only) 35.6 % (37.0-47.0); Hemoglobin 12.0 g/dl (12.0-16.0); Immature Granulocytes # (auto) 0.15 K/uL (0.01-0.20); Immature Granulocytes % (auto) 1.7 %; Mean Corpuscular Hemoglobin 29.3 pg (25.0-34.0); Mean Corpuscular Volume 86.8 fL (80.0-100.0); Platelet Count 355 K/uL (130-400); RDW Standard Deviation 43.4 fL (36.4-46.3); Red Blood Count 4.10 M/uL (4.20-5.40); White Blood Count 8.83 K/ul (4.8-10.8)
[2025-04-13] MEDS: OPTIRAY 320 100ml IV ONE (21:11)
[2025-04-13 21:25] LABS: Alanine Aminotransferase 29.0 U/L (7-52); Albumin Globulin Ratio 1.1 (0.9-2); Alkaline Phosphatase 63.0 U/L (34-104); Anion Gap 12.0 (3-11); Bilirubin,Total 0.5 mg/dl (0.2-1.0); Blood Urea Nitrogen 21.0 mg/dl (6-23); Calcium 8.6 mg/dl (8.6-10.3); Carbon Dioxide 31.0 mmol/L (21-32); Chloride 95.0 mmol/L (98-107); Creatinine Clr Calc Pharmacy 49.7 ml/min; Globulin 3.1 gm/dl (2.5-4.0); Glucose 126.0 mg/dl (70-99(Fasting)); Lipase 22.0 U/L (11-82); Potassium 3.1 mmol/L (3.5-5.1); Sodium 138.0 mmol/L (136-145); Total Protein 6.6 gm/dl (6.0-8.3)
[2025-04-13 21:46] LABS: INR 1.1 (0.9-1.1); Prothrombin Time 11.8 Seconds (9.0-12.0)
--- NOTE | 2025-04-13 22:10 | CT Scan Report ---
Exam(s): CT ABDOMEN + PELVIS With Contrast IV Amt: 90 ml optiray 329 EXAM: CT Abdomen and Pelvis With Intravenous Contrast CLINICAL HISTORY: Reason for exam: mid ab pain; recent SBO s/p surgery. TECHNIQUE: Axial computed tomography images of the abdomen and pelvis with intravenous contrast. CTDI is 28.14 mGy and DLP is 1542.04 mGy-cm. Automated exposure control was utilized for the study. A dose lowering technique was utilized adhering to the principles of ALARA. CONTRAST: Patient received 90 ml optiray 329 of IV contrast COMPARISON: CT 11/23/2023 FINDINGS: Mediastinum: Distended stomach with a large hiatal hernia. ABDOMEN: Liver: Unremarkable. Gallbladder and bile ducts: Unremarkable. Pancreas: Unremarkable. Spleen: Unremarkable. Adrenals: Unremarkable. Kidneys and ureters: Unremarkable. No obstructing stones. No hydronephrosis. Stomach and bowel: Diffuse dilatation of the small bowel measuring up to 4 cm. The colon is nondilated. Appearance is concerning for small bowel obstruction. Transition point favored in the right lower quadrant. PELVIS: Appendix: No findings to suggest acute appendicitis. Bladder: Unremarkable. Reproductive: Unremarkable as visualized. ABDOMEN and PELVIS: Intraperitoneal space: Small amount of free fluid within the pelvis. No free air. Bones/joints: No acute fracture. Soft tissues: Subcutaneous emphysema is likely postsurgical. Ventral seroma measuring 11 x 2.5 cm. Vasculature: Unremarkable. Lymph nodes: Unremarkable. IMPRESSION: 1. Diffuse dilatation of the small bowel measuring up to 4 cm. The colon is nondilated. Appearance is concerning for small bowel obstruction. Transition point favored in the right lower quadrant. 2. Ventral seroma measuring 11 x 2.5 cm. 3. Distended stomach with a large hiatal hernia. Electronically signed by: Juarez Batista MD 04/13/25 22:09 PM
--- NOTE | 2025-04-13 23:36 | XRay Report ---
Exam(s): XR KUB EXAM: XR Abdomen, 1 View CLINICAL HISTORY: Reason for exam: ng placement. TECHNIQUE: Frontal supine view of the abdomen/pelvis. COMPARISON: Multiple same-day IMPRESSION: 1. Esophagogastric tube terminates within the stomach. 2. Large hiatal hernia. Electronically signed by: Juarez Batista MD 04/13/25 23:35 PM
--- NOTE | 2025-04-13 23:36 | XRay Report ---
Exam(s): XR KUB EXAM: XR Abdomen, 1 View CLINICAL HISTORY: Reason for exam: Ng tube placement. TECHNIQUE: Frontal supine view of the abdomen/pelvis. COMPARISON: No relevant prior studies available. FINDINGS: Lower thorax: Esophagogastric tube is kinked in the esophagus and oriented retrograde. Large hiatal hernia. Basilar atelectasis. Gastrointestinal tract: Dilated small bowel loops. IMPRESSION: 1. Esophagogastric tube is kinked in the esophagus and oriented retrograde. Needs to be repositioned. 2. Large hiatal hernia. 3. Dilated small bowel loops. Electronically signed by: Juarez Batista MD 04/13/25 23:34 PM
[2025-04-13] MEDS: POTASSIUM CHLORIDE / WTR 10 MEQ/100 ML PLCT IV ONE (23:54)
[2025-04-13] MEDS: SODIUM CHLORIDE 0.9% 500 ML IV SCH (23:57)
--- NOTE | 2025-04-14 00:21 | History & Physical Report ---
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 Patient on 04/03/2025 had surgery for recurrent ventral hernia with incarceration with laparoscopy and s/p mesh placement. Postop was complicated with small bowel obstruction and on 04/10/2025 patient had diagnostic laparoscopy ,enterolysis and release of small bowel obstruction and eventually was discharged on 04/11/2025. Patient says since yesterday night she developed nausea ,vomiting and abdominal pain. Before she came in the abdomen pain was very severe. Currently it is under control. Still has some nausea. Status post NG tube in the ER. Before coming to the ER she had a bowel movement. Currently passing gas. Denies any fevers. No chest pain or shortness of breath. No headache. No runny nose or sore throat. No cough. Currently ambulating with walker. Hemodynamics are okay. Small bowel obstruction Recurrent Recently had a ventral hernia repair and postop complicated with small bowel obstruction and status post exploratory laparoscopy , enterolysis and release of obstruction. Currently status post NG tube CAT scan showing small bowel obstruction. Omental seroma measuring 11X 2.5 cm. And also distended stomach with large hiatal hernia N.p.o., IV fluids, IV antiemetics., IV pain meds as needed Surgery consult for further recommendations Hypokalemia Potassium 3.1 Will replace Follow labs History of obstructive sleep apnea infrequently uses oral appliance Chronic diastolic CHF Getting fluids Will monitor for volume overload History of paroxysmal SVT On Coreg If tolerates can give p.o. and to clamp NG tube for half an hour after p.o. meds Hypertension On Coreg Hyperlipidemia Hold statin for now Hypothyroidism Hold Synthroid for now Restless leg syndrome Can give Mirapex if tolerates GERD IV Protonix Diabetes Hold metformin Sliding scale Will monitor History of breast cancer Invasive ductal carcinoma breast stage I On anastrozole DVT prophylaxis SCDs for now Disposition Medical floor Full code. History of Present Illness Chief Complaint: Small bowel obstruction Primary Care Provider: Jodi Garcia MD 74-year-old female with past medical history significant for moderate obstructive sleep apnea, hiatal hernia, diastolic CHF, paroxysmal SVT, hypertension, morbid obesity, urge incontinence of urine, restless leg syndrome, senile osteoporosis, migraine, invasive ductal carcinoma of breast stage I, spinal stenosis, presents with nausea vomiting and abdominal pain and found to have a small bowel obstruction. Patient on 04/03/2025 had surgery for recurrent ventral hernia with incarceration with laparoscopy and s/p mesh placement. Postop was complicated with small bowel obstruction and on 04/10/2025 patient had diagnostic laparoscopy ,enterolysis and release of small bowel obstruction and eventually was discharged on 04/11/2025. Patient says since yesterday night she developed nausea ,vomiting and abdominal pain. Before she came in the abdomen pain was very severe. Currently it is under control. Still has some nausea. Status post NG tube in the ER. Before coming to the ER she had a bowel movement. Currently passing gas. Denies any fevers. No chest pain or shortness of breath. No headache. No runny nose or sore throat. No cough. Currently ambulating with walker. Hemodynamics are okay. Past medical history. As mentioned above Past surgical history. Bilateral knee arthroplasty. Colonoscopy. Left knee arthroscopy. Nasal surgery. Social history. . No smoking. Alcohol occasionally. No drug use. Family history. Father had arthritis. Aunt had breast cancer. Mother had osteoporosis. Allergies Allergy/AdvReac Type Severity Reaction Status Date / Time lisinopril Allergy Severe Throat Verified 04/03/25 07:23 Swelling, Shortness of Breath Penicillins Allergy Severe Shortness Verified 04/03/25 07:23 of Breath latex Allergy Intermediate Rash Verified 04/03/25 07:23 sulfamethoxazole Allergy Mild Rash Verified 04/03/25 07:23 [From Bactrim] trimethoprim [From Bactrim] Allergy Mild Rash Verified 04/03/25 07:23 atorvastatin AdvReac Intermediate Jittery, Verified 04/03/25 07:23 Unable to Sleep empagliflozin AdvReac Intermediate Abdominal Verified 04/03/25 07:23 [From Jardiance] Pain Home Medications Medication Instructions Recorded Confirmed Type anastrozole 1 mg tablet 1 mg PO DAILY 04/13/25 04/14/25 History carvedilol 12.5 mg tablet 12.5 mg PO BID 04/13/25 04/14/25 History gabapentin 100 mg capsule 100 mg PO HS 04/13/25 04/14/25 History levothyroxine 175 mcg tablet 175 mcg PO DAILY 04/13/25 04/14/25 History metformin 500 mg tablet 500 mg PO QPM 04/13/25 04/14/25 History omeprazole 20 mg capsule,delayed 20 mg PO DAILY 04/13/25 04/14/25 History release oxycodone-acetaminophen 5 mg-325 0.25 tab PO BID 04/13/25 04/14/25 History mg tablet pramipexole 0.5 mg tablet 0.5 mg PO UD 04/13/25 04/14/25 History rosuvastatin 5 mg tablet 5 mg PO DAILY 04/13/25 04/14/25 History tizanidine 2 mg tablet 2 mg PO TID PRN Muscle Spasm 04/13/25 04/14/25 History Past Med/Surg History Problem List (Updated 04/13/25 @ 23:47 by Yung Woodard MD) Acute hypokalemia (Acute) Nausea vomiting and diarrhea (Acute) SBO (small bowel obstruction) (Acute) Small bowel obstruction S/P recurrent ventral herniorrhaphy (04/03/25) Laparoscopic Recurrent Ventral Hernia Repair with Mesh(Not Applicable) - Kahlil Isabel, DO Postoperative ileus Morbid obesity Recurrent ventral hernia with incarceration H/O ventral hernia repair (11/24/23) Open Ventral Hernia Repair(Not Applicable) - Kahlil Isabel, DO Ventral hernia Small bowel obstruction (Acute) 2023 Gastritis Anemia Encounter for pre-operative examination SCC (squamous cell carcinoma) Malignant neoplasm of central portion of right breast in female, estrogen receptor positive (Chronic 07/06/21) Carpal tunnel syndrome, left Idiopathic polyneuropathy Restless leg syndrome Migraine hx Recurrent ventral hernia reason for procedure 04/03/25 [facility] Endometrial hyperplasia hx ASCUS favor benign 06/12/07; 05/2006 Medical History History of paroxysmal supraventricular tachycardia Per cardio records Peripheral neuropathy Bilateral Hands & Feet Fatigue Chronic per cardio records -negative nuclear stress test 2019 SCC (squamous cell carcinoma) Per derm records Restless leg syndrome Migraines History of small bowel obstruction 11/2023 - s/p ventral hernia repair Prediabetes Oral History of anesthesia problem - After procedure 11/2023 - had difficulty breathing and catching breath. "It wasn't when I was in recovery, it was when I was in my room." - Per review of [facility] progress notes/discharge summary during 11/2023 admission s/p ventral hernia repair- no mention of breathing issues; patient does have DAGMAR- non compliant with CPAP - "Years ago when I had a D&C - I had a hard time coming out of it, don't remember ride home from the hospital" Sleep apnea CPAP; "hasn't used in 2 weeks due to tingling in her cheek from her mask/magnet, waiting for special pads to arrive" History of COVID-19 11/2021, home test, not hosp; "bad" congestion, chills, fatigue> resolved History of Mohs micrographic surgery for skin cancer BCC forehead CHF (congestive heart failure) [facility] - Chronic HFpEF EF 55-59% per 2020 ECHO Basal cell carcinoma of face Forehead Gastroesophageal reflux disease Hiatal hernia Breast cancer, right Biopsy on 07/06/21; s/p lumpectomy and XRT DDD (degenerative disc disease) Lumbar radiculopathy Lumbar spinal stenosis Hypothyroidism Hypertension Surgical History H/O inguinal hernia repair Open Ventral Hernia Repair- Kahlil Isabel, DO 16-24 Hx of colonoscopy History of carpal tunnel surgery of left wrist History of surgery "Turbinate resection" Status post right breast lumpectomy 08/17/21 Dr. Leong S/P dilation and curettage H/O foot surgery Bilateral H/O shoulder surgery 2015 - Bilateral arthroscopic S/P tonsillectomy and adenoidectomy History of arthroplasty of left knee "09/21/16 Dr. Villavicencio" S/P left knee arthroscopy "2006" History of arthroplasty of right knee "2013 Dr. Villavicencio" Family History Father , 90yo Laryngeal cancer Restless leg syndrome Sister Restless leg syndrome Brother Restless leg syndrome Hypertension Grandmother (Maternal) Cardiac disorder Grandmother (Paternal) Cardiac disorder Aunt Breast cancer maternal Mother , 90yo Alzheimer disease Unknown Colorectal cancer maternal cousin 50s, paternal cousin 50s. Brother Depression Restless leg syndrome Brother No problems noted. Brother Aplastic anemia Daughter No problems noted. 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 Head- atraumatic Eyes- PERRL. ENT- oropharynx clear Neck- supple, no JVD. Lungs- clear to auscultation no wheezing or crackles Heart- regular rate and rhythm; no murmur, no gallop. Abdomen- bowel sounds heard , soft, mild diffuse tenderness, no distension Neuro- alert, oriented PERRL, no facial palsy; no dysarthria; moves extremities. Results & Data Results & Data Vital Signs (Past 12 Hours) Vital Signs Temp Pulse Pulse Resp BP BP Pulse Ox 04/13/25 23:31 74 18 125/90 93 04/13/25 21:41 77 18 125/90 94 04/13/25 20:48 86 04/13/25 20:43 79 91 04/13/25 20:26 37.3 C 93 H 22 160/102 H 94 O2 Del Method 04/13/25 23:31 Room Air 04/13/25 21:41 Room Air 04/13/25 20:48 04/13/25 20:43 Room Air 04/13/25 20:26 Room Air Diagnostic Findings Laboratory Results WBC 8.83 K/ul (4.8-10.8) 04/13/25 20:48 RBC 4.10 M/uL (4.20-5.40) L 04/13/25 20:48 Hgb 12.0 g/dl (12.0-16.0) 04/13/25 20:48 POC Hgb 12.6 g/dl (12.0-16.0) 04/13/25 20:57 Hct 35.6 % (37.0-47.0) L 04/13/25 20:48 POC Hct 37 % (37-47) 04/13/25 20:57 MCV 86.8 fL (80.0-100.0) 04/13/25 20:48 MCH 29.3 pg (25.0-34.0) 04/13/25 20:48 MCHC 33.7 g/dL (32.0-36.0) 04/13/25 20:48 RDW Std Deviation 43.4 fL (36.4-46.3) 04/13/25 20:48 RDW Coeff of Steven 13.8 % (11.5-14.5) 04/13/25 20:48 Plt Count 355 K/uL (130-400) 04/13/25 20:48 MPV 9.2 fL (9.4-12.4) L 04/13/25 20:48 Immature Gran % (Auto) 1.7 % 04/13/25 20:48 Neut % (Auto) 65.8 % 04/13/25 20:48 Lymph % (Auto) 17.8 % 04/13/25 20:48 [place] % (Auto) 12.7 % 04/13/25 20:48 Eos % (Auto) 1.7 % 04/13/25 20:48 Baso % (Auto) 0.3 % 04/13/25 20:48 Neut # (Auto) 5.81 K/uL (1.40-6.50) 04/13/25 20:48 Lymph # (Auto) 1.57 K/uL (1.20-3.40) 04/13/25 20:48 [place] # (Auto) 1.12 K/uL (0.11-0.59) H 04/13/25 20:48 Eos # (Auto) 0.15 K/uL (0.00-0.50) 04/13/25 20:48 Baso # (Auto) 0.03 K/uL (0.00-0.20) 04/13/25 20:48 Immature Gran # (Auto) 0.15 K/uL (0.01-0.20) 04/13/25 20:48 PT 11.8 Seconds (9.0-12.0) 04/13/25 20:48 INR 1.1 (0.9-1.1) 04/13/25 20:48 POC Sodium 137 mmol/L (135-144) 04/13/25 20:57 Sodium 138 mmol/L (136-145) 04/13/25 20:48 POC Potassium 3.0 mmol/L (3.3-5.0) L 04/13/25 20:57 Potassium 3.1 mmol/L (3.5-5.1) L 04/13/25 20:48 POC Chloride 94 mmol/L (101-112) L 04/13/25 20:57 Chloride 95 mmol/L (98-107) L 04/13/25 20:48 Carbon Dioxide 31 mmol/L (21-32) 04/13/25 20:48 POC Total CO2 27 mmol/L (24-31) 04/13/25 20:57 Anion Gap 12 (3-11) H 04/13/25 20:48 POC Anion Gap 19.0 mmol/L (16-25) 04/13/25 20:57 POC BUN 20 mg/dl (7-18) H 04/13/25 20:57 BUN 21 mg/dl (6-23) 04/13/25 20:48 Creatinine 1.15 mg/dl (0.6-1.2) 04/13/25 20:48 POC Creatinine 0.8 mg/dl (0.6-1.3) 04/13/25 20:57 Est Cr Clr Drug Dosing 49.7 ml/min 04/13/25 20:48 eGFR 49.37 04/13/25 20:48 BUN/Creatinine Ratio 18.3 (10-20) 04/13/25 20:48 Glucose 126 mg/dl (70-99(Fasting)) H 04/13/25 20:48 POC Glucose (other) 128 mg/dl (70-99) H 04/13/25 20:57 Lactate 1.1 mmol/L (0.4-2.0) 04/13/25 Unknown Calcium 8.6 mg/dl (8.6-10.3) 04/13/25 20:48 POC Ioniz Calcium [place] 1.05 mmol/l (1.12-1.32) L 04/13/25 20:57 Total Bilirubin 0.5 mg/dl (0.2-1.0) 04/13/25 20:48 AST 24 U/L (13-39) 04/13/25 20:48 ALT 29 U/L (7-52) 04/13/25 20:48 Alkaline Phosphatase 63 U/L (34-104) 04/13/25 20:48 Total Protein 6.6 gm/dl (6.0-8.3) 04/13/25 20:48 Albumin 3.5 gm/dl (3.4-5.0) 04/13/25 20:48 Globulin 3.1 gm/dl (2.5-4.0) 04/13/25 20:48 Albumin/Globulin Ratio 1.1 (0.9-2) 04/13/25 20:48 Lipase 22 U/L (11-82) 04/13/25 20:48 Impressions Abdomen/Pelvis CT 04/13/25 20:43 Exam(s): CT ABDOMEN + PELVIS With Contrast IV Amt: 90 ml optiray 329 EXAM: CT Abdomen and Pelvis With Intravenous Contrast CLINICAL HISTORY: Reason for exam: mid ab pain; recent SBO s/p surgery. TECHNIQUE: Axial computed tomography images of the abdomen and pelvis with intravenous contrast. CTDI is 28.14 mGy and DLP is 1542.04 mGy-cm. Automated exposure control was utilized for the study. A dose lowering technique was utilized adhering to the principles of ALARA. CONTRAST: Patient received 90 ml optiray 329 of IV contrast COMPARISON: CT 11/23/2023 FINDINGS: Mediastinum: Distended stomach with a large hiatal hernia. ABDOMEN: Liver: Unremarkable. Gallbladder and bile ducts: Unremarkable. Pancreas: Unremarkable. Spleen: Unremarkable. Adrenals: Unremarkable. Kidneys and ureters: Unremarkable. No obstructing stones. No hydronephrosis. Stomach and bowel: Diffuse dilatation of the small bowel measuring up to 4 cm. The colon is nondilated. Appearance is concerning for small bowel obstruction. Transition point favored in the right lower quadrant. PELVIS: Appendix: No findings to suggest acute appendicitis. Bladder: Unremarkable. Reproductive: Unremarkable as visualized. ABDOMEN and PELVIS: Intraperitoneal space: Small amount of free fluid within the pelvis. No free air. Bones/joints: No acute fracture. Soft tissues: Subcutaneous emphysema is likely postsurgical. Ventral seroma measuring 11 x 2.5 cm. Vasculature: Unremarkable. Lymph nodes: Unremarkable. IMPRESSION: 1. Diffuse dilatation of the small bowel measuring up to 4 cm. The colon is nondilated. Appearance is concerning for small bowel obstruction. Transition point favored in the right lower quadrant. 2. Ventral seroma measuring 11 x 2.5 cm. 3. Distended stomach with a large hiatal hernia. Electronically signed by: Juarez Batista MD 04/13/25 22:09 PM KUB X-Ray 04/13/25 22:49 Exam(s): XR KUB EXAM: XR Abdomen, 1 View CLINICAL HISTORY: Reason for exam: ng placement. TECHNIQUE: Frontal supine view of the abdomen/pelvis. COMPARISON: Multiple same-day IMPRESSION: 1. Esophagogastric tube terminates within the stomach. 2. Large hiatal hernia. Electronically signed by: Juarez Batista MD 04/13/25 23:35 PM ECG Additional Comments: ECG. Normal sinus rhythm rate of 87. Nonspecific T wave abnormality. QTc 490. Code Status & VTE Plan VTE Prophylaxis Plan VTE Prophylaxis will be ordered: Yes
[2025-04-14] MEDS ORDERED: DEXTROSE 50% 50 ML SYRINGE IV PRN (01:53)
[2025-04-14] MEDS ORDERED: GLUCAGON FOR INJ 1 MG VIAL SQ PRN (01:53)
[2025-04-14] MEDS ORDERED: CARBOHYDRATES FOR HYPOGLYCEMIA PO PRN (01:53)
[2025-04-14] MEDS ORDERED: GLUCOSE 40% GEL 15 GM TUBE PO PRN (01:53)
[2025-04-14] MEDS ORDERED: ACETAMINOPHEN 1,000 MG/100 ML VIAL IV PRN (01:53)
[2025-04-14] MEDS ORDERED: GLUCOSE 10 TAB/TUBE PO PRN (01:53)
[2025-04-14] MEDS: LACTATED RINGER'S 1,000 ML IV SCH (02:19)
[2025-04-14] MEDS: LORazepam 0.5 MG TAB SL STA (02:19)
[2025-04-14] MEDS: POTASSIUM CHLORIDE / WTR 10 MEQ/100 ML PLCT IV SCH (02:23)
[2025-04-14] MEDS: HYDROmorphone INJ 0.5 MG/0.5 ML SYR IV PRN ×2 (03:09→14:08)
[2025-04-14 03:26] LABS: Appearance Urine Clear (Clear); Bacteria Urine Automated 4+ (None Seen); Cast Urine Automated 0-2 /lpf (0-2); Epithelial Cell Urine Auto 0-2 /hpf (0-2); Glucose Urine UA Negative (Negative); RBC Urine Automated >20 /hpf (0-2); WBC Urine Automated 21-50 /hpf (0-5)
[2025-04-14 05:47] LABS: Hematocrit (blood only) 29.6 % (37.0-47.0); Hemoglobin 9.4 g/dl (12.0-16.0); Immature Granulocytes # (auto) 0.08 K/uL (0.01-0.20); Immature Granulocytes % (auto) 1.0 %; Mean Corpuscular Hemoglobin 28.3 pg (25.0-34.0); Mean Corpuscular Volume 89.2 fL (80.0-100.0); Platelet Count 292 K/uL (130-400); RDW Standard Deviation 45.1 fL (36.4-46.3); Red Blood Count 3.32 M/uL (4.20-5.40); White Blood Count 8.39 K/ul (4.8-10.8)
[2025-04-14 06:03] LABS: Anion Gap 9.0 (3-11); Blood Urea Nitrogen 19.0 mg/dl (6-23); Calcium 7.4 mg/dl (8.6-10.3); Carbon Dioxide 29.0 mmol/L (21-32); Chloride 100.0 mmol/L (98-107); Creatinine Clr Calc Pharmacy 59.2 ml/min; Glucose 93.0 mg/dl (70-99(Fasting)); Magnesium 1.6 mg/dl (1.7-2.4); Potassium 3.8 mmol/L (3.5-5.1); Sodium 138.0 mmol/L (136-145)
[2025-04-14] MEDS: INSULIN ASPART PER UNIT CHARGE SC SCH (06:08)
--- NOTE | 2025-04-14 08:19 | Surgery Progress Note ---
Date of Service April 14, 2025 Assessment & Plan (1) Nausea vomiting and diarrhea: Plan: loose bm's all weekend...... psbo vs ileus. minimal out of ngt currently recheck KUB keep ngt for now. (2) SBO (small bowel obstruction): (3) S/P recurrent ventral herniorrhaphy: Admission and Anticipated Discharge Date Admission Date: April 13, 2025 Subjective pt seen. feeling good currently. +flatus and loose bm's. no pain. no nausea. Physical Exam Physical Exam: alert.nad abd: soft. minimal distension. incisions look good. Results & Data Vital Signs (Past 12 Hours) Vital Signs Temp Pulse Pulse Resp BP BP BP 04/14/25 07:17 36.7 C 73 18 121/76 04/14/25 02:35 04/14/25 01:53 36.7 C 73 20 140/87 04/14/25 01:33 69 18 127/81 04/14/25 00:47 75 18 128/75 04/14/25 00:40 73 04/13/25 23:31 74 18 125/90 04/13/25 21:41 77 18 125/90 04/13/25 20:48 86 04/13/25 20:43 79 04/13/25 20:26 37.3 C 93 H 22 160/102 H Pulse Ox O2 Del Method 04/14/25 07:17 92 Room Air 04/14/25 02:35 Room Air 04/14/25 01:53 95 Room Air 04/14/25 01:33 94 Room Air 04/14/25 00:47 94 Room Air 04/14/25 00:40 04/13/25 23:31 93 Room Air 04/13/25 21:41 94 Room Air 04/13/25 20:48 04/13/25 20:43 91 Room Air 04/13/25 20:26 94 Room Air PG Care Time/CCT Total # of Minutes Spent Total Time Spent with Patient: Total time spent is greater than 50% in coordination of care (as documented) at patient's floor/unit and/or counseling patient: Coding Level of Care Code 56257 Post Operative Follow-Up Diagnoses Nausea vomiting and diarrhea R11.2; R19.7 SBO (small bowel obstruction) K56.609 S/P recurrent ventral herniorrhaphy Z98.890; Z87.19
--- NOTE | 2025-04-14 09:28 | XRay Report ---
KUB CLINICAL HISTORY: Small bowel obstruction versus ileus FINDINGS: 3 AP supine abdominal radiographs are compared to abdominal x-rays and CT dated 04/13/2025. T here is evidence of a persistent small bowel obstruction. Distended loops of small bowel measure up t o 5.5 cm in diameter. No evidence of intraperitoneal free air is clearly seen on these supine images. Subcutaneous emphysema is noted in the right body wall. There are no abnormal abdominal calcificatio ns. The bladder is filled with excreted IV contrast. The skeletal structures are osteopenic and appea r intact. There is lumbosacral spondylosis and scoliosis. Degenerative sclerosis is noted in sacroili ac joints. The heart is enlarged. An enteric tube terminates above the diaphragm, likely contained wi thin a hiatal hernia. IMPRESSION: 1. Persistent small bowel obstruction. 2. The enteric tube is located above the diaphragm, likely contained within a hiatal hernia. 3. Subcutaneous emphysema is noted in the right body wall. 4. There is no clear radiographic evidence of intraperitoneal free air on these supine images. Electronically signed by: Trino Vick M.D. 04/14/2025 9:27 AM
[2025-04-14] MEDS: ANASTROZOLE 1 MG TAB PO SCH (09:46)
--- NOTE | 2025-04-14 11:50 | Hospitalist Progress Note ---
Date of Service April 14, 2025 Assessment & Plan (1) SBO (small bowel obstruction): Plan: 74-year-old female with past medical history significant for moderate obstructive sleep apnea, hiatal hernia, diastolic CHF, paroxysmal SVT, hypertension, morbid obesity, urge incontinence of urine, restless leg syndrome, senile osteoporosis, migraine, invasive ductal carcinoma of breast stage I, spinal stenosis, presents with nausea vomiting and abdominal pain since after recent discharge. On 04/03/2025, she had surgery for recurrent ventral hernia with incarceration with laparoscopy and s/p mesh placement. Postop was complicated with small bowel obstruction and on 04/10/2025 patient had diagnostic laparoscopy ,enterolysis and release of small bowel obstruction and eventually was discharged on 04/11/2025. Small bowel obstruction Recently had a ventral hernia repair and postop complicated with small bowel obstruction and status post exploratory laparoscopy , enterolysis and release of obstruction. CT scan showing small bowel obstruction. Omental seroma measuring 11X 2.5 cm. And also distended stomach with large hiatal hernia Continue NGT. Reviewed XR this AM. NGT may need adjustment. RN to discuss with surg Continue IVF, antiemetics prn Follow up surgery recommendation Hypokalemia On admission, Potassium 3.1. Repleted and improved to 3.8 today Hypomagnesemia. Mag is 1.6 today IV repletion ordered. Monitor History of obstructive sleep apnea infrequently uses oral appliance Chronic diastolic CHF Getting maintenance IVF Will monitor for volume overload History of paroxysmal SVT Hypertension On Coreg Hyperlipidemia Hold statin for now Hypothyroidism Will do IV for now while NPO Restless leg syndrome Can give Mirapex if tolerates GERD IV Protonix Diabetes Hold metformin Sliding scale Will monitor History of breast cancer Invasive ductal carcinoma breast stage I On anastrozole DVT prophylaxis SCDs for now. Reassess pharm agent in AM Full code. I spent a total of 50 minutes coordinating, documenting and providing care for this patient excluding time spent in performance of separately billed services Admission and Anticipated Discharge Date Admission Date: April 13, 2025 Subjective Patient seen and examined Reports no nausea or vomiting today No abd pain Denied cough, chest pain or SOB Physical Exam Constitutional: + well hydrated; no acute distress Eyes: PERRL, conjunctivae normal, anicteric sclerae ENMT: NGT in situ Respiratory: normal respiratory effort, lungs clear to auscultation Cardiovascular: Rate/Rhythm: regular rate and regular rhythm Gastrointestinal (Abdomen): Abd is soft, nontender, incision site healing well Musculoskeletal: No pedal edema Neurologic: PERRL, EOMI, accommodation nl, no face palsy, no dysarthria Psychiatric: A+Ox3, euthymic affect Results & Data Results & Data Vital Signs (Past 12 Hours) Vital Signs Temp Pulse Pulse Resp BP BP Pulse Ox 04/14/25 07:17 36.7 C 73 18 121/76 92 04/14/25 02:35 04/14/25 01:53 36.7 C 73 20 140/87 95 04/14/25 01:33 69 18 127/81 94 04/14/25 00:47 75 18 128/75 94 04/14/25 00:40 73 O2 Del Method 04/14/25 07:17 Room Air 04/14/25 02:35 Room Air 04/14/25 01:53 Room Air 04/14/25 01:33 Room Air 04/14/25 00:47 Room Air 04/14/25 00:40 Laboratory Results Abnormal lab results 04/13/25 04/13/25 04/14/25 Range/Units 20:48 20:57 02:00 RBC 4.10 L (4.20-5.40) M/uL Hgb (12.0-16.0) g/dl Hct 35.6 L (37.0-47.0) % MCHC (32.0-36.0) g/dL MPV 9.2 L (9.4-12.4) fL [place] # (Auto) 1.12 H (0.11-0.59) K/uL POC Potassium 3.0 L (3.3-5.0) mmol/L Potassium 3.1 L (3.5-5.1) mmol/L POC Chloride 94 L (101-112) mmol/L Chloride 95 L (98-107) mmol/L Anion Gap 12 H (3-11) POC BUN 20 H (7-18) mg/dl Glucose 126 H (70-99(Fasting)) mg/dl POC Glucose 101 H (70-99) mg/dl POC Glucose (other) 128 H (70-99) mg/dl Calcium (8.6-10.3) mg/dl POC Ioniz Calcium [place] 1.05 L (1.12-1.32) mmol/l Magnesium (1.7-2.4) mg/dl Ur Specific [place] (1.000-1.030) Urine Protein (Negative) Urine Ketones (Negative) Ur Leukocyte Esterase (Negative) Urine WBC (Auto) (0-5) /hpf Urine RBC (Auto) (0-2) /hpf Urine Bacteria (Auto) (None Seen) 04/14/25 04/14/25 04/14/25 Range/Units 03:00 05:33 06:06 RBC 3.32 L (4.20-5.40) M/uL Hgb 9.4 L (12.0-16.0) g/dl Hct 29.6 L (37.0-47.0) % MCHC 31.8 L (32.0-36.0) g/dL MPV 9.1 L (9.4-12.4) fL [place] # (Auto) 1.09 H (0.11-0.59) K/uL POC Potassium (3.3-5.0) mmol/L Potassium (3.5-5.1) mmol/L POC Chloride (101-112) mmol/L Chloride (98-107) mmol/L Anion Gap (3-11) POC BUN (7-18) mg/dl Glucose (70-99(Fasting)) mg/dl POC Glucose 106 H (70-99) mg/dl POC Glucose (other) (70-99) mg/dl Calcium 7.4 L (8.6-10.3) mg/dl POC Ioniz Calcium [place] (1.12-1.32) mmol/l Magnesium 1.6 L (1.7-2.4) mg/dl Ur Specific [employer] [place] > 1.045 H (1.000-1.030) Urine Protein Trace H (Negative) Urine Ketones 3+ H (Negative) Ur Leukocyte Esterase Trace H (Negative) Urine WBC (Auto) 21-50 H (0-5) /hpf Urine RBC (Auto) >20 H (0-2) /hpf Urine Bacteria (Auto) 4+ H (None Seen)
[2025-04-14] MEDS: MAGNESIUM SULFATE / D5W 1 GM/100 ML BAG IV ONE (13:05)
[2025-04-14] MEDS ORDERED: diphenhydrAMINE 2%/ZINC 0.1% CREAM 28.4GM TUBE EXT PRN (13:25)
[2025-04-14] MEDS: PRAMIPEXOLE DIHYDROCHLO 0.5 MG TAB PO SCH ×2 (16:24→20:58)
--- NOTE | 2025-04-14 18:27 | Electrocardiogram Report ---
Test Reason : Blood Pressure : */* mmHG Vent. Rate : 87 BPM Atrial Rate : 87 BPM P-R Int : 122 ms QRS Dur : 88 ms QT Int : 408 ms P-R-T Axes : 38 4 51 degrees QTcB Int : 490 ms Normal sinus rhythm Nonspecific T wave abnormality Poor R wave progression, consider anterior WA vs. lead placement vs. LVH Abnormal ECG When compared with ECG of 21-Mar-2025 13:00, Nonspecific T wave abnormality now evident in Lateral leads QT has lengthened Confirmed by Jared Matias ([id number]) on 04/14/2025 6:26:40 PM Referred By: REFERRED SELF Confirmed By: Jared Matias
[2025-04-14] MEDS: GABAPENTIN 100 MG CAP PO SCH (20:57)
[2025-04-15] MEDS: LORazepam 0.5 MG TAB SL STA (01:52)
[2025-04-15 07:32] LABS: Hematocrit (blood only) 29.5 % (37.0-47.0); Hemoglobin 9.6 g/dl (12.0-16.0); Immature Granulocytes # (auto) 0.12 K/uL (0.01-0.20); Immature Granulocytes % (auto) 1.7 %; Mean Corpuscular Hemoglobin 29.0 pg (25.0-34.0); Mean Corpuscular Volume 89.1 fL (80.0-100.0); Platelet Count 281 K/uL (130-400); RDW Standard Deviation 45.3 fL (36.4-46.3); Red Blood Count 3.31 M/uL (4.20-5.40); White Blood Count 7.10 K/ul (4.8-10.8)
[2025-04-15 07:49] LABS: Anion Gap 8.0 (3-11); Blood Urea Nitrogen 16.0 mg/dl (6-23); Calcium 7.7 mg/dl (8.6-10.3); Carbon Dioxide 28.0 mmol/L (21-32); Chloride 101.0 mmol/L (98-107); Creatinine Clr Calc Pharmacy 72.0 ml/min; Glucose 72.0 mg/dl (70-99(Fasting)); Magnesium 1.9 mg/dl (1.7-2.4); Potassium 3.3 mmol/L (3.5-5.1); Sodium 137.0 mmol/L (136-145)
--- NOTE | 2025-04-15 08:31 | XRay Report ---
KUB CLINICAL HISTORY: Reassess SBO and NGT COMPARISON STUDY: KUB April 14, 2025. CT of the abdomen and pelvis April 13, 2025. FINDINGS: The nasogastric tube is not visualized on this exam. On prior KUB, the nasogastric tube tip was within a large hiatal hernia with intrathoracic stomach. Multiple loops of moderately dilated sm all bowel measure up to 5.4 cm. Small bowel dilatation has mildly decreased. Multiple locules of gas within the abdominal wall are again noted. This was shown on prior CT and may be postsurgical. IMPRESSION: 1. Findings consistent with a persistent but slightly improved small bowel obstruction. 2. Nasogastric tube not visualized on this exam. On prior KUB, the tube was within a hiatal hernia. A chest radiograph could be obtained to assess the nasogastric tube. ACT 112: Negative or not required by law. Electronically signed by: Arsenio Bethea M.D. 04/15/2025 8:29 AM
[2025-04-15 08:57] LABS: Hemoglobin A1C 6.4 % (4.5-5.6)
[2025-04-15] MEDS: LEVOTHYROXINE SODIUM 87.5 MCG in SYRINGE 0 ML IV SCH (09:24)
--- NOTE | 2025-04-15 10:28 | XRay Report ---
XR chest 1V portable CLINICAL HISTORY: To assess NGT placement COMPARISON STUDY: Chest CT April 27, 2024. KUB April 14, 2025. FINDINGS: Chronic mild elevation the right hemidiaphragm is incidentally noted. There is no pneumotho rax. A trace right pleural effusion is present. Large hiatal hernia is noted. Nasogastric tube is coi led within the intrathoracic portion of the stomach. IMPRESSION: Redemonstration of a large hiatal hernia. Nasogastric tube coiled within the intrathorac ic portion of the stomach. ACT 112: Negative or not required by law. Electronically signed by: Arsenio Bethea M.D. 04/15/2025 10:26 AM
[2025-04-15] MEDS: POTASSIUM CHLORIDE / WTR 10 MEQ/100 ML PLCT IV SCH (11:00)
--- NOTE | 2025-04-15 11:15 | Hospitalist Progress Note ---
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 On 04/03/2025, she had surgery for recurrent ventral hernia with incarceration with laparoscopy and s/p mesh placement. Postop was complicated with small bowel obstruction and on 04/10/2025 patient had diagnostic laparoscopy ,enterolysis and release of small bowel obstruction and eventually was discharged on 04/11/2025. Small bowel obstruction Recently had a ventral hernia repair and postop complicated with small bowel obstruction and status post exploratory laparoscopy , enterolysis and release of obstruction. CT scan showing small bowel obstruction. Omental seroma measuring 11X 2.5 cm. And also distended stomach with large hiatal hernia KUB and CXR today showed NGT is within hernia above diaphragm Discussed with Surgical team in the room Recommends remove NGT and start clears and monitor Reduced maintenance IVF Hypokalemia On admission, Potassium 3.1. K is 3.3 today IV repletion ordered Monitor History of obstructive sleep apnea infrequently uses oral appliance Chronic diastolic CHF Getting maintenance IVF. Reduced this AM Will monitor for volume overload History of paroxysmal SVT Hypertension On Coreg Hyperlipidemia Hold statin for now Hypothyroidism Continue IV levothyroxine today. If tolerating clears, change to po Restless leg syndrome Can give Mirapex if tolerates GERD IV Protonix Diabetes Hold metformin Sliding scale Will monitor History of breast cancer Invasive ductal carcinoma breast stage I On anastrozole DVT prophylaxis SCDs for now. Reassess pharm agent in AM Full code. I spent a total of 50 minutes coordinating, documenting and providing care for this patient excluding time spent in performance of separately billed services Admission and Anticipated Discharge Date Admission Date: April 13, 2025 Subjective Patient seen and examined Nausea and vomiting have resolved Denied any abd pain No BM today but passing flatus NGT in situ without drainage Physical Exam Constitutional: + well hydrated; no acute distress Eyes: PERRL, conjunctivae normal, anicteric sclerae ENMT: NGT Respiratory: normal respiratory effort, lungs clear to auscultation Cardiovascular: Rate/Rhythm: regular rate and regular rhythm Gastrointestinal (Abdomen): Soft, not distended, nontender, normal bowel sounds Neurologic: PERRL, EOMI, accommodation nl, no face palsy, no dysarthria Psychiatric: A+Ox3, euthymic affect Results & Data Results & Data Vital Signs (Past 12 Hours) Vital Signs Temp Pulse Resp BP Pulse Ox O2 Del Method 04/15/25 07:02 36.4 C L 65 18 112/74 93 Room Air Laboratory Results Abnormal lab results 04/15/25 Range/Units 07:13 RBC 3.31 L (4.20-5.40) M/uL Hgb 9.6 L (12.0-16.0) g/dl Hct 29.5 L (37.0-47.0) % MPV 9.1 L (9.4-12.4) fL [place] # (Auto) 0.75 H (0.11-0.59) K/uL Potassium 3.3 L (3.5-5.1) mmol/L BUN/Creatinine Ratio 20.3 H (10-20) Hemoglobin A1c 6.4 H (4.5-5.6) % Calcium 7.7 L (8.6-10.3) mg/dl
--- NOTE | 2025-04-15 11:20 | Surgery Progress Note ---
Date of Service April 15, 2025 Assessment & Plan (1) SBO (small bowel obstruction): Plan: likely psbo as she was having loose bm's all weekend. ngt essentially not functioning over past 24 hours. xray slight improvement. +flatus. will pull ngt since it's not functioning and let her try clears. Admission and Anticipated Discharge Date Admission Date: April 13, 2025 Subjective pt seen. feeling great. no pain. no nausea. +flatus Physical Exam Constitutional: WD/WN, vitals as above no acute distress and not ill appearing Eyes: PERRL, conjunctivae normal, anicteric sclerae EOM intact bilaterally ENMT: external ear and nose normal, oropharynx normal Ears: no hearing impairment Neck: trachea midline, no thyromegaly Respiratory: normal respiratory effort; no respiratory distress and does not use accessory muscles Cardiovascular: Rate/Rhythm: regular rate and regular rhythm Gastrointestinal (Abdomen): soft. nt. non-distended. incisions look good Skin: no rashes, warm and dry Psychiatric: Orientation: alert, oriented x 3 and cooperative Results & Data Vital Signs (Past 12 Hours) Vital Signs Temp Pulse Resp BP Pulse Ox O2 Del Method 04/15/25 07:02 36.4 C L 65 18 112/74 93 Room Air PG Care Time/CCT Total # of Minutes Spent Total Time Spent with Patient: Total time spent is greater than 50% in coordination of care (as documented) at patient's floor/unit and/or counseling patient: Coding Level of Care Code 70914 Post Operative Follow-Up Diagnoses SBO (small bowel obstruction) K56.609
[2025-04-15] MEDS ORDERED: Nursing to Pharmacy Communication SCH (11:30)
[2025-04-15] MEDS: INSULIN ASPART PER UNIT CHARGE SC SCH (13:05)
[2025-04-15] MEDS: ONDANSETRON INJ 2 MG/ML 2 ML VIAL IV PRN (21:56)
[2025-04-16 02:27] LABS: Adenovirus F 40/41 PCR Not Detected (NotDetected); Campylobacter PCR Not Detected (NotDetected); Enteroaggregative E.coli(EAEC) Not Detected (NotDetected); Shiga-like Toxin E.coli (STEC) Not Detected (NotDetected); Vibrio species PCR Not Detected (NotDetected)
--- NOTE | 2025-04-16 07:37 | Surgery Progress Note ---
Date of Service April 16, 2025 Assessment & Plan (1) SBO (small bowel obstruction): Plan: Patient reports feeling well, tolerating clears, + bowel function mild nausea this AM but is hungry will trial some low fiber, advised her to go slow Encourage OOB ambulating multiple times per shift Possibly ok for d/c tomorrow if does well throughout the day (2) S/P recurrent ventral herniorrhaphy: Admission and Anticipated Discharge Date Admission Date: April 13, 2025 Subjective Patient says she feels well this AM. She does report some mild nausea, but is telling us she believes it's related to her being hungry. She is passing gas and stool. She reports tolerating the clears thus far without issue, however they are not appetizing to her. She is requesting eggs and toast and something more to eat. Physical Exam Physical Exam: awake/alert, no distress Gastrointestinal (Abdomen): Inspection/Auscultation: + abdominal surgical incision (c/d/i with some incisions with mild ecchymosis); abdomen not distended Percussion/Palpation: abdomen soft; abdomen nontender Results & Data Vital Signs (Past 12 Hours) Vital Signs Temp Pulse Resp BP BP Pulse Ox O2 Del Method 04/16/25 07:08 97.9 F 66 16 114/77 91 Room Air 04/15/25 20:18 98.1 F 71 16 140/84 94 Room Air PG Care Time/CCT Total # of Minutes Spent Total Time Spent with Patient: Total time spent is greater than 50% in coordination of care (as documented) at patient's floor/unit and/or counseling patient: Coding Level of Care Code 08307 Post Operative Follow-Up Diagnoses SBO (small bowel obstruction) K56.609 S/P recurrent ventral herniorrhaphy Z98.890; Z87.19
[2025-04-16 07:49] LABS: Hematocrit (blood only) 29.5 % (37.0-47.0); Hemoglobin 9.5 g/dl (12.0-16.0); Mean Corpuscular Hemoglobin 28.5 pg (25.0-34.0); Mean Corpuscular Volume 88.6 fL (80.0-100.0); Platelet Count 274 K/uL (130-400); RDW Standard Deviation 45.2 fL (36.4-46.3); Red Blood Count 3.33 M/uL (4.20-5.40); White Blood Count 7.26 K/ul (4.8-10.8)
[2025-04-16 08:14] LABS: Anion Gap 7.0 (3-11); Blood Urea Nitrogen 12.0 mg/dl (6-23); Calcium 7.4 mg/dl (8.6-10.3); Carbon Dioxide 29.0 mmol/L (21-32); Chloride 102.0 mmol/L (98-107); Creatinine Clr Calc Pharmacy 69.3 ml/min; Glucose 80.0 mg/dl (70-99(Fasting)); Magnesium 1.8 mg/dl (1.7-2.4); Potassium 3.4 mmol/L (3.5-5.1); Sodium 138.0 mmol/L (136-145)
[2025-04-16] MEDS ORDERED: ALUMINUM/MAGNESIUM/SIMETH (MAALOX MAX) 30 ML UDC PO PRN (14:38)
--- NOTE | 2025-04-16 14:45 | Hospitalist Progress Note ---
Date of Service April 16, 2025 Assessment & Plan (1) SBO (small bowel obstruction): Plan: 74-year-old female with past medical history significant for moderate obstructive sleep apnea, hiatal hernia, diastolic CHF, paroxysmal SVT, hypertension, morbid obesity, urge incontinence of urine, restless leg syndrome, senile osteoporosis, migraine, invasive ductal carcinoma of breast stage I, spinal stenosis, presents with nausea vomiting and abdominal pain secondary to small bowel obstruction On 04/03/2025, she had surgery for recurrent ventral hernia with incarceration with laparoscopy and s/p mesh placement. Postop was complicated with small bowel obstruction and on 04/10/2025 patient had diagnostic laparoscopy ,enterolysis and release of small bowel obstruction and eventually was discharged on 04/11/2025. Small bowel obstruction Recently had a ventral hernia repair and postop complicated with small bowel obstruction and status post exploratory laparoscopy , enterolysis and release of obstruction. CT scan showing small bowel obstruction. Omental seroma measuring 11X 2.5 cm. And also distended stomach with large hiatal hernia NG tube is out and diet is being advanced per surgical team Hypokalemia On admission, Potassium 3.1. K is 3.4 today P.o. repletion ordered Monitor History of obstructive sleep apnea infrequently uses oral appliance Chronic diastolic CHF IVF discontinued. Continue to monitor for volume overload History of paroxysmal SVT Hypertension On Coreg Hyperlipidemia Hold statin for now. And restart at discharge Hypothyroidism Continue levothyroxine Restless leg syndrome Can give Mirapex if tolerates GERD IV Protonix switched to oral Diabetes Hold metformin Sliding scale Will monitor History of breast cancer Invasive ductal carcinoma breast stage I On anastrozole Anemia Probably dilutional Will trend Check anemia studies DVT prophylaxis SCDs for now. Full code. I spent a total of 52 minutes coordinating, documenting and providing care for this patient excluding time spent in performance of separately billed services Admission and Anticipated Discharge Date Admission Date: April 13, 2025 Subjective Patient seen and evaluated this AM. Data, vital signs and chart reviewed. She has some mild congestion. She is passing flatus. She reports tolerating the clears thus far without issue. Review of Systems Review of Systems: Constitutional- no fever; no chills Eyes- no acute visual changes ENT- no sinus drainage; no pharyngitis Pulmonary- no cough, no wheezing, no shortness of breath Cardiac- no chest pain, no palpitations, no orthopnea, no dependent edema GI-mild nausea, mild indigestion, no vomiting, passing flatus - no dysuria, no hematuria Neuro- no headaches, no focal neurologic symptoms Psych- no anxiety, no depression Physical Exam Physical Exam: General- adult elderly female seen at bedside Head- atraumatic Eyes- PERRL, EOMI, anicteric ENT- oropharynx clear Neck- supple, no JVD, no adenopathy, no thyromegaly; carotids +2/2, no bruits appreciated Lungs- clear to auscultation and percussion Heart- regular rhythm; no murmur, no gallop, no rub appreciated Abdomen- normal bowel sounds, soft, nontender, no masses or hepatosplenomegaly Extremities- no pretibial edema, no calf tenderness; peripheral pulses intact Neuro- alert, oriented x 3; PERRL, EOMI; no focal deficits Skin- warm & dry Results & Data Results & Data Vital Signs (Past 12 Hours) Vital Signs Temp Pulse Resp BP BP Pulse Ox O2 Del Method 04/16/25 14:17 36.3 C L 71 16 114/76 93 Room Air 04/16/25 07:08 36.6 C 66 16 114/77 91 Room Air Diagnostic Findings Laboratory Results WBC 7.26 K/ul (4.8-10.8) 04/16/25 06: RBC 3.33 M/uL (4.20-5.40) L 04/16/25 06:27 Hgb 9.5 g/dl (12.0-16.0) L 04/16/25 06:27 POC Hgb 12.6 g/dl (12.0-16.0) 04/13/25 20:57 Hct 29.5 % (37.0-47.0) L 04/16/25 06:27 POC Hct 37 % (37-47) 04/13/25 20:57 MCV 88.6 fL (80.0-100.0) 04/16/25 06: MCH 28.5 pg (25.0-34.0) 04/16/25 06:27 MCHC 32.2 g/dL (32.0-36.0) 04/16/25 06: RDW Std Deviation 45.2 fL (36.4-46.3) 04/16/25 06:27 RDW Coeff of Steven 14.1 % (11.5-14.5) 04/16/25 06:27 Plt Count 274 K/uL (130-400) 04/16/25 06:27 MPV 9.0 fL (9.4-12.4) L 04/16/25 06:27 Immature Gran % (Auto) 1.7 % 04/15/25 07:13 Neut % (Auto) 62.7 % 04/15/25 07:13 Lymph % (Auto) 21.0 % 04/15/25 07:13 [place] % (Auto) 10.6 % 04/15/25 07:13 Eos % (Auto) 3.7 % 04/15/25 07:13 Baso % (Auto) 0.3 % 04/15/25 07:13 Neut # (Auto) 4.46 K/uL (1.40-6.50) 04/15/25 07:13 Lymph # (Auto) 1.49 K/uL (1.20-3.40) 04/15/25 07:13 [place] # (Auto) 0.75 K/uL (0.11-0.59) H 04/15/25 07:13 Eos # (Auto) 0.26 K/uL (0.00-0.50) 04/15/25 07:13 Baso # (Auto) 0.02 K/uL (0.00-0.20) 04/15/25 07:13 Immature Gran # (Auto) 0.12 K/uL (0.01-0.20) 04/15/25 07:13 PT 11.8 Seconds (9.0-12.0) 04/13/25 20:48 INR 1.1 (0.9-1.1) 04/13/25 20:48 POC Sodium 137 mmol/L (135-144) 04/13/25 20:57 Sodium 138 mmol/L (136-145) 04/16/25 06:27 POC Potassium 3.0 mmol/L (3.3-5.0) L 04/13/25 20:57 Potassium 3.4 mmol/L (3.5-5.1) L 04/16/25 06:27 POC Chloride 94 mmol/L (101-112) L 04/13/25 20:57 Chloride 102 mmol/L (98-107) 04/16/25 06:27 Carbon Dioxide 29 mmol/L (21-32) 04/16/25 06:27 POC Total CO2 27 mmol/L (24-31) 04/13/25 20:57 Anion Gap 7 (3-11) 04/16/25 06:27 POC Anion Gap 19.0 mmol/L (16-25) 04/13/25 20:57 POC BUN 20 mg/dl (7-18) H 04/13/25 20:57 BUN 12 mg/dl (6-23) 04/16/25 06:27 Creatinine 0.82 mg/dl (0.6-1.2) 04/16/25 06:27 POC Creatinine 0.8 mg/dl (0.6-1.3) 04/13/25 20:57 Est Cr Clr Drug Dosing 69.3 ml/min 04/16/25 06:27 eGFR 74.09 04/16/25 06:27 BUN/Creatinine Ratio 14.6 (10-20) 04/16/25 06:27 Glucose 80 mg/dl (70-99(Fasting)) 04/16/25 06:27 POC Glucose 97 mg/dl (70-99) 04/16/25 11:25 POC Glucose (other) 128 mg/dl (70-99) H 04/13/25 20:57 Estimat Average Glucose 137 mg/dl 04/15/25 07:13 Hemoglobin A1c 6.4 % (4.5-5.6) H 04/15/25 07:13 Lactate 1.1 mmol/L (0.4-2.0) 04/13/25 Unknown Calcium 7.4 mg/dl (8.6-10.3) L 04/16/25 06:27 POC Ioniz Calcium [place] 1.05 mmol/l (1.12-1.32) L 04/13/25 20:57 Phosphorus 2.3 mg/dl (2.5-4.9) L 04/16/25 06:27 Magnesium 1.8 mg/dl (1.7-2.4) 04/16/25 06:27 Total Bilirubin 0.5 mg/dl (0.2-1.0) 04/13/25 20:48 AST 24 U/L (13-39) 04/13/25 20:48 ALT 29 U/L (7-52) 04/13/25 20:48 Alkaline Phosphatase 63 U/L (34-104) 04/13/25 20:48 Total Protein 6.6 gm/dl (6.0-8.3) 04/13/25 20:48 Albumin 3.5 gm/dl (3.4-5.0) 04/13/25 20:48 Globulin 3.1 gm/dl (2.5-4.0) 04/13/25 20:48 Albumin/Globulin Ratio 1.1 (0.9-2) 04/13/25 20:48 Lipase 22 U/L (11-82) 04/13/25 20:48 Urine Color Yellow 04/14/25 03:00 Urine Appearance Clear (Clear) 04/14/25 03:00 Urine pH 5.5 (4.5-7.5) 04/14/25 03:00 Ur Specific [place] > 1.045 (1.000-1.030) H 04/14/25 03:00 Urine Protein Trace (Negative) H 04/14/25 03:00 Urine Glucose (UA) Negative (Negative) 04/14/25 03:00 Urine Ketones 3+ (Negative) H 04/14/25 03:00 Urine Blood Negative (Negative) 04/14/25 03:00 Urine Nitrite Negative (Negative) 04/14/25 03:00 Urine Bilirubin Negative (Negative) 04/14/25 03:00 Urine Urobilinogen Negative (Negative) 04/14/25 03:00 Ur Leukocyte Esterase Trace (Negative) H 04/14/25 03:00 Urine WBC (Auto) 21-50 /hpf (0-5) H 04/14/25 03:00 Urine RBC (Auto) >20 /hpf (0-2) H 04/14/25 03:00 U Hyaline Cast (Auto) 0-2 /lpf (0-2) 04/14/25 03:00 U Epithel Cells (Auto) 0-2 /hpf (0-2) 04/14/25 03:00 Urine Bacteria (Auto) 4+ (None Seen) H 04/14/25 03:00 Urine Comment 04/14/25 03:00 Stl C. cayetanensis PCR Not Detected (NotDetected) 04/16/25 Unknown Stool Rotavirus A PCR Not Detected (NotDetected) 04/16/25 Unknown Stl Adenov F 40/41 PCR Not Detected (NotDetected) 04/16/25 Unknown Stool Astrovirus (PCR) Not Detected (NotDetected) 04/16/25 Unknown Stool Campylobacter PCR Not Detected (NotDetected) 04/16/25 Unknown Stool Cryptosporidium PCR Not Detected (NotDetected) 04/16/25 Unknown Stl E.coli Shiga Tox PCR Not Detected (NotDetected) 04/16/25 Unknown Stl Enterotoxigenic E PCR Not Detected (NotDetected) 04/16/25 Unknown Stool EPEC (PCR) Not Detected (NotDetected) 04/16/25 Unknown Stool EAEC (PCR) Not Detected (NotDetected) 04/16/25 Unknown Stl E. histolytica PCR Not Detected (NotDetected) 04/16/25 Unknown Stool Giardia Lamblia PCR Not Detected (NotDetected) 04/16/25 Unknown Stool Salmonella PCR Not Detected (NotDetected) 04/16/25 Unknown Stool Sapovirus (PCR) Not Detected (NotDetected) 04/16/25 Unknown Stl P. shigelloides PCR Not Detected (NotDetected) 04/16/25 Unknown Stl Shigella/EIEC PCR Not Detected (NotDetected) 04/16/[address]enterocolitica PCR Not Detected (NotDetected) 04/16/25 Unknown Stool Vibrio (PCR) Not Detected (NotDetected) 04/16/25 Unknown Stl Vibrio cholerae PCR Not Detected (NotDetected) 04/16/25 Unknown Stl Norovirus GI/GII PCR Not Detected (NotDetected) 04/16/25 Unknown Impressions Abdomen/Pelvis CT 04/13/25 20:43 Exam(s): CT ABDOMEN + PELVIS With Contrast IV Amt: 90 ml optiray 329 EXAM: CT Abdomen and Pelvis With Intravenous Contrast CLINICAL HISTORY: Reason for exam: mid ab pain; recent SBO s/p surgery. TECHNIQUE: Axial computed tomography images of the abdomen and pelvis with intravenous contrast. CTDI is 28.14 mGy and DLP is 1542.04 mGy-cm. Automated exposure control was utilized for the study. A dose lowering technique was utilized adhering to the principles of ALARA. CONTRAST: Patient received 90 ml optiray 329 of IV contrast COMPARISON: CT 11/23/2023 FINDINGS: Mediastinum: Distended stomach with a large hiatal hernia. ABDOMEN: Liver: Unremarkable. Gallbladder and bile ducts: Unremarkable. Pancreas: Unremarkable. Spleen: Unremarkable. Adrenals: Unremarkable. Kidneys and ureters: Unremarkable. No obstructing stones. No hydronephrosis. Stomach and bowel: Diffuse dilatation of the small bowel measuring up to 4 cm. The colon is nondilated. Appearance is concerning for small bowel obstruction. Transition point favored in the right lower quadrant. PELVIS: Appendix: No findings to suggest acute appendicitis. Bladder: Unremarkable. Reproductive: Unremarkable as visualized. ABDOMEN and PELVIS: Intraperitoneal space: Small amount of free fluid within the pelvis. No free air. Bones/joints: No acute fracture. Soft tissues: Subcutaneous emphysema is likely postsurgical. Ventral seroma measuring 11 x 2.5 cm. Vasculature: Unremarkable. Lymph nodes: Unremarkable. IMPRESSION: 1. Diffuse dilatation of the small bowel measuring up to 4 cm. The colon is nondilated. Appearance is concerning for small bowel obstruction. Transition point favored in the right lower quadrant. 2. Ventral seroma measuring 11 x 2.5 cm. 3. Distended stomach with a large hiatal hernia. Electronically signed by: Juarez Batitsa MD 04/13/25 22:09 PM KUB X-Ray 04/15/25 07:20 KUB CLINICAL HISTORY: Reassess SBO and NGT COMPARISON STUDY: KUB April 14, 2025. CT of the abdomen and pelvis April 13, 2025. FINDINGS: The nasogastric tube is not visualized on this exam. On prior KUB, the nasogastric tube tip was within a large hiatal hernia with intrathoracic stomach. Multiple loops of moderately dilated small bowel measure up to 5.4 cm. Small bowel dilatation has mildly decreased. Multiple locules of gas within the abdominal wall are again noted. This was shown on prior CT and may be postsurgical. IMPRESSION: 1. Findings consistent with a persistent but slightly improved small bowel obstruction. 2. Nasogastric tube not visualized on this exam. On prior KUB, the tube was within a hiatal hernia. A chest radiograph could be obtained to assess the nasogastric tube. ACT 112: Negative or not required by law. Electronically signed by: Arsenio Bethea M.D. 04/15/2025 8:29 AM Chest X-Ray 04/15/25 10:00 XR chest 1V portable CLINICAL HISTORY: To assess NGT placement COMPARISON STUDY: Chest CT April 27, 2024. KUB April 14, 2025. FINDINGS: Chronic mild elevation the right hemidiaphragm is incidentally noted. There is no pneumothorax. A trace right pleural effusion is present. Large hiatal hernia is noted. Nasogastric tube is coiled within the intrathoracic portion of the stomach. IMPRESSION: Redemonstration of a large hiatal hernia. Nasogastric tube coiled within the intrathoracic portion of the stomach. ACT 112: Negative or not required by law. Electronically signed by: Arsenio Bethea M.D. 04/15/2025 10:26 AM
[2025-04-17 07:40] VITALS: BP 118/78; PULSE 67; RESP 16; TEMP 97.2; O2SAT 93
--- NOTE | 2025-04-17 07:51 | Surgery Progress Note ---
Date of Service April 17, 2025 Assessment & Plan (1) SBO (small bowel obstruction): Plan: seems to be resolving. adamantly wants to go home. will message primary service. ok for d/c on light/low fiber diet. Admission and Anticipated Discharge Date Admission Date: April 13, 2025 Subjective pt seen. " I feel great/I'm going home".... yesterday had small amount of discomfort and nausea. no emesis. multiple bm's past 24 hours. no pain or nausea now. eating breakfast. Physical Exam Physical Exam: alert. nad abd: soft. nt. nd. +bs's. Results & Data Vital Signs (Past 12 Hours) Vital Signs Temp Pulse Resp BP Pulse Ox O2 Del Method 04/17/25 07:39 36.2 C L 67 16 118/78 93 Room Air PG Care Time/CCT Total # of Minutes Spent Total Time Spent with Patient: Total time spent is greater than 50% in coordination of care (as documented) at patient's floor/unit and/or counseling patient: Coding Level of Care Code 63647 Post Operative Follow-Up Diagnoses SBO (small bowel obstruction) K56.609
[2025-04-17] MEDS: LEVOTHYROXINE SODIUM 175 MCG TABLET PO SCH (07:57)
[2025-04-17 08:17] LABS: Hematocrit (blood only) 31.5 % (37.0-47.0); Hemoglobin 10.3 g/dl (12.0-16.0); Mean Corpuscular Hemoglobin 29.0 pg (25.0-34.0); Mean Corpuscular Volume 88.7 fL (80.0-100.0); Platelet Count 312 K/uL (130-400); RDW Standard Deviation 45.0 fL (36.4-46.3); Red Blood Count 3.55 M/uL (4.20-5.40); White Blood Count 9.01 K/ul (4.8-10.8)
[2025-04-17 08:42] LABS: Anion Gap 7.0 (3-11); Blood Urea Nitrogen 12.0 mg/dl (6-23); Calcium 7.9 mg/dl (8.6-10.3); Carbon Dioxide 28.0 mmol/L (21-32); Chloride 102.0 mmol/L (98-107); Creatinine Clr Calc Pharmacy 58.6 ml/min; Glucose 106.0 mg/dl (70-99(Fasting)); Iron 28.0 mcg/dl (35-150); Potassium 3.4 mmol/L (3.5-5.1); Sodium 137.0 mmol/L (136-145); Total Iron Binding Cap Calc 230.0 mcg/dl (250-450); Transferrin 164.0 mg/dl (200-360); Transferrin (FE) Percent Satur 12.0 % (15-50)
--- NOTE | 2025-04-17 16:41 | Discharge Summary ---
Discharge Summary Date of Service April 17, 2025 Principal Dx & Hospital Course #1 = Principal Diagnosis (1) SBO (small bowel obstruction): 74-year-old female with past medical history significant for moderate obstructive sleep apnea, hiatal hernia, diastolic CHF, paroxysmal SVT, hypertension, morbid obesity, urge incontinence of urine, restless leg syndrome, senile osteoporosis, migraine, invasive ductal carcinoma of breast stage I, spinal stenosis, presents with nausea vomiting and abdominal pain secondary to small bowel obstruction On 04/03/2025, she had surgery for recurrent ventral hernia with incarceration with laparoscopy and s/p mesh placement. Postop was complicated with small bowel obstruction and on 04/10/2025 patient had diagnostic laparoscopy ,enterolysis and release of small bowel obstruction and eventually was discharg ed on 04/11/2025. Small bowel obstruction Recently had a ventral hernia repair and postop complicated with small bowel obstruction and status post exploratory laparoscopy , enterolysis and release of obstruction. CT scan showing small bowel obstruction. Omental seroma measuring 11X 2.5 cm. And also distended stomach with large hiatal hernia NG tube is out and diet is being advanced per surgical team Hypokalemia On admission, Potassium 3.1. K is 3.4 today P.o. repletion ordered Monitor History of obstructive sleep apnea infrequently uses oral appliance Chronic diastolic CHF IVF discontinued. Continue to monitor for volume overload History of paroxysmal SVT Hypertension On Coreg Hyperlipidemia Hold statin for now. And restart at discharge Hypothyroidism Continue levothyroxine Restless leg syndrome Can give Mirapex if tolerates GERD IV Protonix switched to oral Diabetes Hold metformin Sliding scale Will monitor History of breast cancer Invasive ductal carcinoma breast stage I On anastrozole Anemia Probably dilutional Will trend Check anemia studies DVT prophylaxis SCDs for now. Full code. I spent a total of 52 minutes coordinating, documenting and providing care for this patient excluding time spent in performance of separately billed services Plan Hospital course: Patient was admitted to the medical surgical floor on the third floor. She was given IV fluids. NG tube was placed. General surgery was consulted. Patient was made NPO. Lab work was checked on a regular basis. Repeat x-rays were done. Patient had improvement in her symptoms and had some return of her bowel function with flatus. Her NG tube was discontinued. She was placed on clear liquids. Her activity was increased. Her bowel function improved. Her diet was advanced. Surgery felt the patient could be discharged on this date. At the time of discharge her vital signs were stable. Her physical exam findings were stable. Patient is to follow-up with surgery postdischarge and also her primary care provider. She was given discharge instructions. She was told to call or return if there was any change in her clinical condition. Notes For Next Care Provider Medication Changes From Visit No changes Admission HPI Per Admitting Provider 74-year-old female with past medical history significant for moderate obstructive sleep apnea, hiatal hernia, diastolic CHF, paroxysmal SVT, hypertension, morbid obesity, urge incontinence of urine, restless leg syndrome, senile osteoporosis, migraine, invasive ductal carcinoma of breast stage I, spinal stenosis, presents with nausea vomiting and abdominal pain and found to have a small bowel obstruction. Patient on 04/03/2025 had surgery for recurrent ventral hernia with incarceration with laparoscopy and s/p mesh placement. Postop was complicated with small bowel obstruction and on 04/10/2025 patient had diagnostic laparoscopy ,enterolysis and release of small bowel obstruction and eventually was discharged on 04/11/2025. Patient says since yesterday night she developed nausea ,vomiting and abdominal pain. Before she came in the abdomen pain was very severe. Currently it is under control. Still has some nausea. Status post NG tube in the ER. Before coming to the ER she had a bowel move ment. Currently passing gas. Denies any fevers. No chest pain or shortness of breath. No headache. No runny nose or sore throat. No cough. Currently ambulating with walker. Hemodynamics are okay. Past medical history. As mentioned above Past surgical history. Bilateral knee arthroplasty. Colonoscopy. Left knee arthroscopy. Nasal surgery. Social history. . No smoking. Alcohol occasionally. No drug use. Family history. Father had arthritis. Aunt had breast cancer. Mother had osteoporosis. Discharge Exam General- adult female seen at chair side. She is in no acute distress Head- atraumatic Eyes- PERRL, EOMI, anicteric ENT- oropharynx clear Neck- supple, no JVD, no adenopathy, no thyromegaly; Lungs- clear to auscultation and percussion Heart- regular rhythm; no murmur, no gallop, no rub appreciated Abdomen- normal bowel sounds, soft, nontender, no masses or hepatosplenomegaly Extremities- no pretibial edema, no calf tenderness; peripheral pulses intact Neuro- alert, oriented x 3; PERRL, EOMI; no focal deficits Skin- warm & dry Updated Medication List Medication Instructions Recorded Confirmed Type anastrozole 1 mg tablet 1 mg PO DAILY 04/13/25 04/14/25 History carvedilol 12.5 mg tablet 12.5 mg PO BID 04/13/25 04/14/25 History gabapentin 100 mg capsule 100 mg PO HS 04/13/25 04/14/25 History levothyroxine 175 mcg tablet 175 mcg PO DAILY 04/13/25 04/14/25 History metformin 500 mg tablet 500 mg PO QPM 04/13/25 04/14/25 History omeprazole 20 mg capsule,delayed 20 mg PO DAILY 04/13/25 04/14/25 History release oxycodone-acetaminophen 5 mg-325 0.25 tab PO BID 04/13/25 04/14/25 History mg tablet pramipexole 0.5 mg tablet 0.5 mg PO UD 04/13/25 04/14/25 History rosuvastatin 5 mg tablet 5 mg PO DAILY 04/13/25 04/14/25 History tizanidine 2 mg tablet 2 mg PO TID PRN Muscle Spasm 04/13/25 04/14/25 History Hospital Stay Data Consultations 04/13/25 22:18 Consult General Surgery Routine ED Decision to Admit Stat Diagnostic Imagining Performed 04/13/25 20:43 CT abd pelvis IV con only Stat Pending Results Patient Have Any Pending Studies at Discharge: No Discharge Instructions Given to Patient (Per Discharging Provider) continue on a low fiber diet until seen in the office, small meals Total Time Total Time Spent Total Time Spent (In Minutes): Total time spent in discharge planning for Holly Juarez was 40 minutes
== END 2025-04-17 11:11 | disposition home or self-care (01) | DRG 389 ==
LOC: ED 20:20 → SUATTDRO 23:56 → 3E 23:56